=== PATIENT | female | born 1970 | race Caucasian/White ===

== ENCOUNTER 2017-05-21 14:45 | Inpatient (IN) | payer BC ==
[~2017-05-21] VITALS: Ht 170.2 cm; Wt 120.7 kg
[~2017-05-21 14:45] MED LIST: ACET500C15 PO; AMIT50TA PO; BUPR100T6 PO; DAPA5TAB PO; DIAZEPAM10 MG PO; HYDR1TAB10 PO; LISI-338 PO; LISI1TAB5 PO; MEPE100T14 PO; METF-620 PO; METO10TA81 PO; OMEG500C PO; OMEP40CA5 PO; PREG75CA PO; PROP80CA3 PO; PROP80TA PO; TIZA4TAB PO; TOPI100T42 PO; VALA500T5 PO; VENL150C PO; VERA240C2 PO
[2017-05-21 15:28] LABS: BILIRUBIN,URINE NEGATIVE (NEG); GLUCOSE,URINE NEGATIVE (NEG); NITRITE,URINE NEGATIVE (NEG); PH,URINE 7.5; PROTEIN,URINE NEGATIVE (NEG-TRACE); UROBILINOGEN,URINE 0.2 mg/dL (0.2 mg/dL)
[2017-05-21 15:30] LABS: NEG OBC UR NEG; POS OBC UR POS
[2017-05-21] MEDS ORDERED: diphenhydrAMINE 50 MG/ML VIAL IVP ONE (15:30)
[2017-05-21] MEDS ORDERED: IV NORMAL SALINE 1000ML BAG 1,000 ML IV ONE (15:30)
[2017-05-21] MEDS ORDERED: METOCLOPRAMIDE HCL 10 MG/2 ML VIAL. IV ONE (15:30)
[2017-05-21] MEDS ORDERED: KETOROLAC 15 MG/ML VIAL. IV ONE (15:30)
[2017-05-21 15:36] LABS: BACTERIA,URINE FEW /HPF (0-FEW); RBC,URINE 0 /HPF (0-2); SQUAMOUS EPITHELIAL CELL,UR FEW /LPF; WBC,URINE RARE /HPF (0-4)
--- NOTE | 2017-05-21 15:48 | EKG ---
[facility] [address] [place] [address] Test Date: 2017-05-21 Test Time: 14:56:58 Pat Name: VIRIDIANA BADILLO Department: Room: Gender: F Log Sorter: : 1970 Requested By: DENIA BAR Order Number: [id number] Reading MD: Carlos Dias Measurements Intervals [place] Rate: 103 P: 65 OR: 152 QRS: 16 QRSD: 82 T: 44 QT: 322 QTc: 424 Interpretive Statements SINUS TACHYCARDIA Electronically Signed On 05-22-2017 9:03:14 CDT by Carlos Dias
[2017-05-21 15:56] LABS: BASO # 0.1 x10^3/uL (0.0-0.2); BASO % 1 % (0-3); EOS % 1 % (0-3); HEMATOCRIT 39.5 % (36.0-47.0); HEMOGLOBIN 13.3 g/dL (12.0-15.5); LYMPH # 1.6 x10^3/uL (1.0-4.8); LYMPH % 13 % (24-48); MEAN CORPUSCULAR HEMOGLOBIN 29 pg (25-35); MEAN CORPUSCULAR HGB CONC 34 g/dL (31-37); MEAN CORPUSCULAR VOLUME 86 fL (79-100); MONO % 5 % (0-9); NEUT % 82 % (31-73); PLATELET COUNT 323 x10^3/uL (140-400); RED BLOOD COUNT 4.63 x10^6/uL (3.50-5.40); RED CELL DISTRIBUTION WIDTH 14.3 % (11.5-14.5); WHITE BLOOD COUNT 12.7 x10^3/uL (4.0-11.0)
[2017-05-21 16:10] LABS: CALCIUM 8.7 mg/dL (8.5-10.1); CREATININE 0.8 mg/dL (0.6-1.0); GFR 77.6
[2017-05-21 16:16] LABS: ALBUMIN 3.5 g/dL (3.4-5.0); ALBUMIN/GLOBULIN RATIO 0.9 (1.0-1.7); TOTAL BILIRUBIN 0.1 mg/dL (0.2-1.0); TOTAL PROTEIN 7.4 g/dL (6.4-8.2)
--- NOTE | 2017-05-21 16:17 | RAD ---
CT of the head without contrast, 05/21/2017: History: Headache, slurred speech, hypertension Comparison is made to a study from 03/26/2014. The ventricles are within normal limits in size. There is no shift of the midline structures. There is no evidence of acute intracranial hemorrhage or mass effect. There is an unchanged lucency in the left parietal lobe compatible with encephalomalacia due to a prior insult. There is an unchanged dural calcification over the high left parietal region. No new abnormality is detected. IMPRESSION: No acute intracranial abnormality is detected. PQRS Compliance Statement: One or more of the following individualized dose reduction techniques were utilized for this examination: 1. Automated exposure control 2. Adjustment of the mA and/or kV according to patient size 3. Use of iterative reconstruction technique
--- NOTE | 2017-05-21 17:11 | PHYS DOC ---
Past Medical History Past Medical History: CHF, CVA, Diabetes-Type II, Hypertension, Pneumonia, Stroke, Other Additional Past Medical Histor: chronic migraines, migraine induced TIA's, stroke x2 Past Surgical History: Cholecystectomy, , Other Additional Past Surgical Histo: back surgery, oral surgery, pressure gauge palced in scalp with removal Alcohol Use: None Drug Use: None Adult General Chief Complaint Chief Complaint: HEADACHE HPI HPI Patient is a 46 year old female who presents here today complaining of headache for 5 days as well as an elevated blood pressure at home. Patient reports that she has a history of hypertension, diabetes, stroke, pericarditis. Patient denies any liver longer kidney problems. Patient has had a cholecystectomy in the past. Patient does not drink smoke or do any drugs. Patient is not allergic to any medications. Patient reports that her blood pressure has been elevated and she's been having headache now for 5 days and has been unable to get any sleep secondary to severe pain. Patient reports that she's been taking Valium and Vicodin at home without any significant improvement. Patient reports that her son reported that she has some slurred speech yesterday however she did not think that her speech was slurred at that time. Family denies any facial droop at this time. Patient has any weakness to her upper or lower 70s. Patient reports that she's got some tingling in her right hand. Patient has any fevers shakes chills nausea vomiting diarrhea chest pain. Patient does report some occasional shortness of breath. Patient reports that she's had a history significant for what appears to be pseudotumor cerebri her description. She reports that they told her that she had increased pressures in her brain that has caused headaches in the past. She reports that she's had spinal taps in the past and they removed spinal fluid was some resolution in her headache in the past. Patient reports Dr. Muniz is her neurologist was assisted her with this in the past. Patient's physical exam and the ER was significant for a well-developed well- nourished female who appeared in moderate distress secondary to headache. Patient had a normal exam otherwise. Patient was alert awake oriented 3. Motor is 5 out of 5 upper and lower extremities were normal and equal bilaterally. Patient's abdomen was soft nontender no rebound or guarding. Patient's heart was regular rate and rhythm. Constitutional: Denies fever or chills [] Eyes: Denies change in visual acuity, redness, or eye pain [] HENT: Denies nasal congestion or sore throat [] All other review systems are negative except as documented in the history of present illness portion. Constitutional: Well developed, well nourished, no acute distress, non-toxic appearance. [] HENT: Normocephalic, atraumatic, bilateral external ears normal, oropharynx moist, no oral exudates, nose normal. [] Eyes: no discharge. [] Neck: Normal range of motion, no tenderness, supple, no stridor. [] Cardiovascular:Heart rate regular rhythm, Lungs & Thorax: Bilateral breath sounds clear to auscultation [] Abdomen: Bowel sounds normal, soft, no tenderness, no masses, no pulsatile masses. [] Skin: Warm, dry, no erythema, no rash. [] Back: No tenderness, no CVA tenderness. [] Extremities: No tenderness, no cyanosis, no clubbing, ROM intact, no edema. [] Neurologic: Alert and oriented X 3, normal motor function, normal sensory function, no focal deficits noted. [] Psychologic: Affect normal, judgement normal, mood normal. [] Patient's ER course was significant for receiving Reglan, Toradol, Benadryl and IV fluids to assist with her headache. Patient reports that her headache went down from a 9 at 10 down to a 7 out of 10. Patient reports she still having severe headache and does not think she'll be able home and get any sleep. Patient is CT scan of her head which did not reveal any acute pathology. Patient 's labs were all within normal limits. I discussed the case with Dr. Wagner who agrees the patient would benefit from inpatient hospitalization for management of her headache and her elevated blood pressure. Patient reports that her blood pressure usually is 100/60. After medication ER patient's blood pressures down to 136/81 which is significantly higher than her baseline. Patient will be admitted to the hospital for further management and consultation with Dr. Konx to assist in management of her headache. Patient does have a history of what appears to be pseudotumor cerebra in the past and may need a spinal tap to alleviate her headache. Current Medications Current Medications Current Medications Medications (Trade) Dose Ordered Sig/Arturo Start Time Stop Time Status Last Admin Dose Admin Diphenhydramine HCl (Benadryl) 50 mg 1X ONCE 05/21/17 15:30 05/21/17 15:31 DC 05/21/17 16:06 50 MG Ketorolac Tromethamine (Toradol) 15 mg 1X ONCE 05/21/17 15:30 05/21/17 15:31 DC 05/21/17 16:05 15 MG Metoclopramide HCl (Reglan) 10 mg 1X ONCE 05/21/17 15:30 05/21/17 15:31 DC 05/21/17 16:05 10 MG Sodium Chloride 1,000 ml @ 1,000 mls/hr 1X ONCE 05/21/17 15:30 05/21/17 16:29 DC 05/21/17 16:05 1,000 MLS/HR Allergies Allergies Allergies Coded Allergies Type Severity Reaction Last Updated Verified No Known Drug Allergies 11/13/15 No Current Patient Data Vital Signs Vital Signs Date Time Temp Pulse Resp B/P (MAP) Pulse Ox O2 Delivery O2 Flow Rate FiO2 05/21/17 14:50 97.6 91 22 158/88 (111) 97 Room Air 97.6 Lab Values Laboratory Tests Test 05/21/17 14:57 05/21/17 15:30 Urine Collection Type Void Urine Color Yellow Urine Clarity Cloudy Urine pH 7.5 Urine Specific [place] 1.015 Urine Protein Negative mg/dL (NEG-TRACE) Urine Glucose (UA) Negative mg/dL (NEG) Urine Ketones (Stick) Negative mg/dL (NEG) Urine Blood Negative (NEG) Urine Nitrite Negative (NEG) Urine Bilirubin Negative (NEG) Urine Urobilinogen Dipstick 0.2 mg/dL (0.2 mg/dL) Urine Leukocyte Esterase Negative (NEG) Urine RBC 0 /HPF (0-2) Urine WBC Rare /HPF (0-4) Urine Squamous Epithelial Cells Few /LPF Urine Amorphous Sediment Present /HPF Urine Bacteria Few /HPF (0-FEW) Urine Test Negative (NEG) White Blood Count 12.7 x10^3/uL (4.0-11.0) H Red Blood Count 4.63 x10^6/uL (3.50-5.40) Hemoglobin 13.3 g/dL (12.0-15.5) Hematocrit 39.5 % (36.0-47.0) Mean Corpuscular Volume 86 fL (79-100) Mean Corpuscular Hemoglobin 29 pg (25-35) Mean Corpuscular Hemoglobin Concent 34 g/dL (31-37) Red Cell Distribution Width 14.3 % (11.5-14.5) Platelet Count 323 x10^3/uL (140-400) Neutrophils (%) (Auto) 82 % (31-73) H Lymphocytes (%) (Auto) 13 % (24-48) L Monocytes (%) (Auto) 5 % (0-9) Eosinophils (%) (Auto) 1 % (0-3) Basophils (%) (Auto) 1 % (0-3) Neutrophils # (Auto) 10.3 x10^3uL (1.8-7.7) H Lymphocytes # (Auto) 1.6 x10^3/uL (1.0-4.8) Monocytes # (Auto) 0.6 x10^3/uL (0.0-1.1) Eosinophils # (Auto) 0.1 x10^3/uL (0.0-0.7) Basophils # (Auto) 0.1 x10^3/uL (0.0-0.2) Sodium Level 139 mmol/L (136-145) Potassium Level 4.0 mmol/L (3.5-5.1) Chloride Level 104 mmol/L (98-107) Carbon Dioxide Level 22 mmol/L (21-32) Anion Gap 13 (6-14) Blood Urea Nitrogen 10 mg/dL (7-20) Creatinine 0.8 mg/dL (0.6-1.0) Estimated GFR (Cockcroft-Gault) 77.6 BUN/Creatinine Ratio 13 (6-20) Glucose Level 96 mg/dL (70-99) Calcium Level 8.7 mg/dL (8.5-10.1) Total Bilirubin 0.1 mg/dL (0.2-1.0) L Aspartate Amino Transferase (AST) 17 U/L (15-37) Alanine Aminotransferase (ALT) 23 U/L (14-59) Alkaline Phosphatase 92 U/L (46-116) Total Protein 7.4 g/dL (6.4-8.2) Albumin 3.5 g/dL (3.4-5.0) Albumin/Globulin Ratio 0.9 (1.0-1.7) L Laboratory Tests 05/21/17 15:30 Laboratory Tests 05/21/17 15:30 EKG EKG [] Radiology/Procedures Radiology/Procedures [] Course & Med Decision Making Course & Med Decision Making Pertinent Labs and Imaging studies reviewed. (See chart for details) [] Dragon Disclaimer Dragon Disclaimer This electronic medical record was generated, in whole or in part, using a voice recognition dictation system. Departure Departure Impression: Primary Impression: Intractable pain Additional Impressions: Migraine Hypertension Disposition: ADMITTED INPATIENT Admitting Physician: Batool Faustin Condition: STABLE Referrals: BATOOL FAUSTIN MD (PCP) Problem Qualifiers DENIA BAR MD May 21, 2017 17:11
[2017-05-21] MEDS ORDERED: ACETAMINOPHEN 325 MG TABLET. PO PRN (17:15)
[2017-05-21] MEDS ORDERED: ONDANSETRON PF 4 MG/2 ML VIAL. IV PRN (17:15)
[2017-05-21] MEDS ORDERED: HYDROmorphone 2 MG/ML VIAL IV ONE (17:45)
[2017-05-21 18:46] VITALS: BP 145/79
[2017-05-21 18:48] VITALS: BP 145/79
[2017-05-21] MEDS: IV NORMAL SALINE 1000ML BAG 1,000 ML IV SCH (18:55)
[2017-05-21 19:47] VITALS: BP 137/86
[2017-05-21] MEDS: MORPHINE SULFATE 4 MG/ML DISP.SYRIN. IV PRN ×2 (20:09→22:28)
[2017-05-21] MEDS ORDERED: diazePAM 5 MG TABLET PO PRN (21:30)
[2017-05-21] MEDS: tiZANidine 4 MG TABLET. PO SCH (22:24)
[2017-05-21] MEDS: TOPIRAMATE 100 MG TABLET. PO SCH (22:24)
[2017-05-21] MEDS: VENLAFAXINE 75 MG TABLET. PO SCH (22:24)
[2017-05-21] MEDS: AMITRIPTYLINE HCL 50 MG TABLET PO SCH (22:24)
[2017-05-21] MEDS: buPROPion 100 MG TABLET PO SCH (22:25)
[2017-05-21 23:20] VITALS: BP 135/75
[2017-05-22] VITALS (9 sets, daily range): BP systolic 111–154; BP diastolic 65–94
--- NOTE | 2017-05-22 00:53 | ACF ---
Admission Forms Criteria HEADACHES Clinical Indications for Admission to Inpatient Care (Place 'X' for any and all applicable criteria): Admission is indicated for ANY ONE of the following(1)(2)(3)(4): [X]I. Inpatient admission required rather than observational care (Also use Headaches: Observation Care as appropriate) because of ANY ONE of the following: [X]a) Severe pain requiring acute inpatient management [ ]b) Altered mental status that is severe or persistent [ ]c) Vomiting or dehydration that is severe or persistent [ ]d) New-onset focal neurologic deficit that is severe or persistent [ ]e) Hypertension requiring inpatient treatment [ ]f) Severe (new) neurologic findings requiring inpatient care as indicated by ANY ONE of following(9)(10): [ ]1) Papilledema [ ]2) Cerebral edema [ ]3) Mass effect on CT scan [ ]4) Cerebral bleeding, ischemia, or vasospasm(16) [ ]5) Hydrocephalus(17) [ ]6) Uncontrolled seizures [ ]g) IV infusion of anticoagulation, platelet inhibitors vasoactive, or antiarrhythmic medication. [ ]h) Cerebral bleeding, hydrocephalus, or vasospasm monitoring (16) [ ]i) Increased intracranial pressure or cerebral edema monitoring (17) [ ]j) Other condition, treatment or monitoring requiring inpatient admission [ ]II. Unruptured but threatening aneurysm or vascular malformation [ ]III. Venous sinus thrombosis [ ]IV. Increased intracranial pressure [ ]V. Cerebral spinal fluid leak with decreased intracranial pressure [ ]. Medication-overuse headache that has failed all outpatient management options [ ]VII. Vasculitis (eg, giant cell (temporal) arteritis, central nervous system vasculitis) requiring IV corticosteroids, IV antithrombotic therapy, or inpatient monitoring (eg, visual symptoms or findings, other ischemic manifestations)[A](10)(11) Extended stay beyond goal length of stay may be needed for (27): [ ]a) Intractable migraine [ ]b) Subarachnoid or intracranial hemorrhage [ ]c) Malignant hypertension [ ]d) Detoxification from drug withdrawal in medication-overuse headache (29) The original [facility] content created by [facility] has been revised. The portions of the content which have been revised are identified through the use of italic text or in bold, and Geoffrey [employer]el has neither reviewed nor approved the modified material.All other unmodified content is copyright [facility]. Please see references footnoted in the original [facility] edition 2016 Admission Criteria Met?: Yes ABBEY CHI May 22, 2017 00:53
[2017-05-22] MEDS: MORPHINE SULFATE 4 MG/ML DISP.SYRIN. IV PRN ×9 (01:56→23:02)
[2017-05-22] MEDS: IV NORMAL SALINE 1000ML BAG 1,000 ML IV SCH ×2 (03:09→09:02)
[2017-05-22] MEDS: tiZANidine 4 MG TABLET. PO SCH ×3 (06:04→20:44)
[2017-05-22] MEDS: METOCLOPRAMIDE 5 MG TABLET. PO SCH ×4 (08:09→20:44)
[2017-05-22] MEDS: PANTOPRAZOLE 40 MG TABLET.DR. PO SCH ×2 (08:09→15:42)
--- NOTE | 2017-05-22 08:10 | PDOC ---
GENERAL General: see dictated H&P. Problems: VITAL SIGNS Vital Signs: Vital Signs Date Time Temp Pulse Resp B/P (MAP) Pulse Ox O2 Delivery O2 Flow Rate FiO2 05/22/17 07:00 97.6 81 120/84 (96) 98 Room Air 97.6 05/22/17 06:39 18 I & O I & O Intake and Output 05/22/17 07:00 Intake Total 1550 ml Balance 1550 ml Intake Oral 550 ml IV Total 1000 ml # Voids 4 ALLERGIES Allergies: Allergies Coded Allergies Type Severity Reaction Last Updated Verified No Known Drug Allergies 11/13/15 No MEDS Medications: Current Medications Medications (Trade) Dose Ordered Sig/Arturo Start Time Stop Time Status Last Admin Dose Admin Acetaminophen (Tylenol) 650 mg PRN Q4HRS PRN 05/21/17 17:15 05/22/17 17:14 Amitriptyline HCl (Amitriptyline HCl) 50 mg HS 05/21/17 22:00 05/21/17 22:24 50 MG Bupropion HCl (Wellbutrin) 150 mg BID 05/21/17 22:00 05/21/17 22:25 150 MG Diazepam (Valium) 10 mg PRN TID PRN 05/21/17 21:30 Diphenhydramine HCl (Benadryl) 50 mg 1X ONCE 05/21/17 15:30 05/21/17 15:31 DC 05/21/17 16:06 50 MG Hydromorphone HCl (Dilaudid) 0.5 mg 1X ONCE 05/21/17 17:45 05/21/17 17:46 DC 05/21/17 17:38 0.5 MG Ketorolac Tromethamine (Toradol) 15 mg 1X ONCE 05/21/17 15:30 05/21/17 15:31 DC 05/21/17 16:05 15 MG Metformin HCl (Glucophage) 1,000 mg BIDWMEALS 05/22/17 08:00 Metoclopramide HCl (Reglan) 5 mg [id number] 05/22/17 08:00 Morphine Sulfate 4 mg PRN Q2HR PRN 05/21/17 17:15 05/22/17 17:14 05/22/17 06:09 4 MG Non-Formulary Medication 5 mg DAILY 05/22/17 09:00 UNV Ondansetron HCl (Zofran) 4 mg PRN Q8HRS PRN 05/21/17 17:15 05/22/17 17:14 Pantoprazole Sodium (Protonix) 40 mg BIDAC 05/22/17 07:30 Pregabalin (Lyrica) 75 mg DAILY 05/22/17 09:00 Sodium Chloride 1,000 ml @ 125 mls/hr Q8H 05/21/17 17:02 05/22/17 17:01 05/22/17 03:09 125 MLS/HR Tizanidine HCl (Zanaflex) 4 mg Q8HRS 05/21/17 22:00 05/22/17 06:04 4 MG Topiramate (Topamax) 100 mg BID 05/21/17 22:00 05/21/17 22:24 100 MG Venlafaxine HCl (Effexor) 75 mg TID 05/21/17 22:00 05/21/17 22:24 75 MG LAB Lab: Laboratory Tests Test 05/21/17 14:57 05/21/17 15:30 Urine Collection Type Void Urine Color Yellow Urine Clarity Cloudy Urine pH 7.5 Urine Specific [place] 1.015 Urine Protein Negative mg/dL (NEG-TRACE) Urine Glucose (UA) Negative mg/dL (NEG) Urine Ketones (Stick) Negative mg/dL (NEG) Urine Blood Negative (NEG) Urine Nitrite Negative (NEG) Urine Bilirubin Negative (NEG) Urine Urobilinogen Dipstick 0.2 mg/dL (0.2 mg/dL) Urine Leukocyte Esterase Negative (NEG) Urine RBC 0 /HPF (0-2) Urine WBC Rare /HPF (0-4) Urine Squamous Epithelial Cells Few /LPF Urine Amorphous Sediment Present /HPF Urine Bacteria Few /HPF (0-FEW) Urine Test Negative (NEG) White Blood Count 12.7 x10^3/uL (4.0-11.0) Red Blood Count 4.63 x10^6/uL (3.50-5.40) Hemoglobin 13.3 g/dL (12.0-15.5) Hematocrit 39.5 % (36.0-47.0) Mean Corpuscular Volume 86 fL (79-100) Mean Corpuscular Hemoglobin 29 pg (25-35) Mean Corpuscular Hemoglobin Concent 34 g/dL (31-37) Red Cell Distribution Width 14.3 % (11.5-14.5) Platelet Count 323 x10^3/uL (140-400) Neutrophils (%) (Auto) 82 % (31-73) Lymphocytes (%) (Auto) 13 % (24-48) Monocytes (%) (Auto) 5 % (0-9) Eosinophils (%) (Auto) 1 % (0-3) Basophils (%) (Auto) 1 % (0-3) Neutrophils # (Auto) 10.3 x10^3uL (1.8-7.7) Lymphocytes # (Auto) 1.6 x10^3/uL (1.0-4.8) Monocytes # (Auto) 0.6 x10^3/uL (0.0-1.1) Eosinophils # (Auto) 0.1 x10^3/uL (0.0-0.7) Basophils # (Auto) 0.1 x10^3/uL (0.0-0.2) Sodium Level 139 mmol/L (136-145) Potassium Level 4.0 mmol/L (3.5-5.1) Chloride Level 104 mmol/L (98-107) Carbon Dioxide Level 22 mmol/L (21-32) Anion Gap 13 (6-14) Blood Urea Nitrogen 10 mg/dL (7-20) Creatinine 0.8 mg/dL (0.6-1.0) Estimated GFR (Cockcroft-Gault) 77.6 BUN/Creatinine Ratio 13 (6-20) Glucose Level 96 mg/dL (70-99) Calcium Level 8.7 mg/dL (8.5-10.1) Total Bilirubin 0.1 mg/dL (0.2-1.0) Aspartate Amino Transf (AST/SGOT) 17 U/L (15-37) Alanine Aminotransferase (ALT/SGPT) 23 U/L (14-59) Alkaline Phosphatase 92 U/L (46-116) Total Protein 7.4 g/dL (6.4-8.2) Albumin 3.5 g/dL (3.4-5.0) Albumin/Globulin Ratio 0.9 (1.0-1.7) BATOOL DONOHUE MD May 22, 2017 08:09
[2017-05-22] MEDS ORDERED: KETOROLAC TROMETHAMINE 60 MG/2 ML INJ. IM PRN (08:15)
[2017-05-22] MEDS: PREGABALIN 75 MG CAPSULE PO SCH (08:16)
[2017-05-22] MEDS: TOPIRAMATE 100 MG TABLET. PO SCH ×2 (08:16→20:44)
[2017-05-22] MEDS: VENLAFAXINE 75 MG TABLET. PO SCH ×3 (08:16→20:44)
--- NOTE | 2017-05-22 08:55 | HP ---
ADMIT DATE: 05/21/2017 CHIEF COMPLAINT AND HISTORY OF PRESENT ILLNESS: This 46-year-old white female who is well known to me from followup in the office. The patient was admitted through the Emergency Room with intractable migraine headache, unresponsive to outpatient therapy. In addition, she had increasing right hand numbness along with the issues, known to be status post CVA from presumed migrainous spasm 10 years or so ago. She was admitted for pain control and neurological consultation. PAST MEDICAL HISTORY: Remarkable for migraine headaches and increased intracranial pressure, hypertension, pericarditis, gastroparesis, depression, diabetes and she has had the prior CVA with some resultant expressive aphasia. MEDICATIONS: Brought with the patient, listed on the computer and have been addressed. ALLERGIES: She has no known drug allergies. SOCIAL HISTORY: She is nonsmoker, nondrinker, , works . Does not abuse drugs. FAMILY HISTORY: Noncontributory. REVIEW OF SYSTEMS: As mentioned above. PHYSICAL EXAMINATION: GENERAL: She is a well-developed, well-nourished white female, appears miserable. VITAL SIGNS: Stable. She is afebrile. HEENT: Unremarkable. NECK: Supple without thyromegaly. CHEST: Clear to auscultation and percussion. HEART: Regular rate and rhythm without S3, S4 or murmur. ABDOMEN: Soft, nontender without hepatosplenomegaly or masses. EXTREMITIES: Without cyanosis, clubbing or edema. NEUROLOGIC: Remarkable for mild expressive aphasia which is chronic. I see no acute changes and no new focal problems neurologically. IMPRESSION: Intractable headache, unresponsive to outpatient treatment. PLAN: The patient has been admitted. She will be treated for pain. Neurology has been consulted and the patient will be monitored, managed and treated appropriately. BATOOL DONOHUE MD DR: EMILY/gil JOB#: [id number] / [id number]
[2017-05-22] MEDS ORDERED: NON FORMULARY ITEM (Dapagliflozin Propanediol (Farxiga) 5 MG) PO SCH (09:00)
[2017-05-22] MEDS: buPROPion 100 MG TABLET PO SCH ×2 (10:27→20:43)
[2017-05-22] MEDS: KETOROLAC 15 MG/ML VIAL. IV PRN ×3 (11:40→23:55)
--- NOTE | 2017-05-22 14:31 | PDOC2 ---
NEUROLOGY CONSULT Date of Admission Date of Admission DATE: 05/22/17 TIME: 14:17 Reason for Consult Reason for Consult: Intractable headache Referring Physician Referring Physician: Dr. Faustin Source Source: Chart review, Patient History of Present Illness History of Present Illness The patient is a 46-year-old right-handed female well known to me from hospital stays as well as office follow-up. In fact I just saw her 3 weeks ago and she was doing fairly well. She has long-standing migraines and has had strokes from these. There was also a possible component of benign intracranial hypertension, but she had an intracranial pressure monitor placed and did not demonstrate enough high pressure over the 3 days of monitoring to justify a shunt. She has been seeing pain clinic and is supposed to have an ablation procedure next week. I have been giving her OxyContin 30 mg every 12 hours but she is ambiguous as to whether she has been taking this. For the past week she has had increased headache and may be a little bit of numbness in the right hand. Her headache is 7/10 now after a Toradol injection after having been 10/10 on admission. There was a suggestion of possible brain neoplasm on prior MRIs but nothing has shown on subsequent ones Past Medical History Cardiovascular: CHF, HTN, Hyperlipidemia, Other (pericarditis, deep vein thrombosis) Pulmonary: Bronchitis, Pneumonia CENTRAL NERVOUS SYSTEM: CVA, Migraine GI: GERD, Peptic Ulcer disease Hepatobiliary: Cholelithiasis Psych: Anxiety, Depression Musculoskeletal: low back pain ENT: Other (tinnitis) Endocrine: Diabetes Past Surgical History Past Surgical History: , Other (uterine ablation, wisdom teeth) Current Medications Current Medications Current Medications Diphenhydramine HCl (Benadryl) 50 mg 1X ONCE IVP Last administered on 16:06; Start 05/21/17 at 15:30; Stop 05/21/17 at 15:31; Status DC Ketorolac Tromethamine (Toradol) 15 mg 1X ONCE IV Last administered on 16:05; Start 05/21/17 at 15:30; Stop 05/21/17 at 15:31; Status DC Sodium Chloride 1,000 ml @ 1,000 mls/hr 1X ONCE IV Last administered on 16:05; Start 05/21/17 at 15:30; Stop 05/21/17 at 16:29; Status DC Metoclopramide HCl (Reglan) 10 mg 1X ONCE IV Last administered on 05/21/17 16 :05; Start 05/21/17 at 15:30; Stop 05/21/17 at 15:31; Status DC Ondansetron HCl (Zofran) 4 mg PRN Q8HRS PRN IV NAUSEA/VOMITING; Start 05/21/17 at 17:15; Stop 05/22/17 at 17:14 Morphine Sulfate 4 mg PRN Q2HR PRN IV PAIN Last administered on 05/22/17 13:25 ; Start 05/21/17 at 17:15; Stop 05/22/17 at 17:14 Sodium Chloride 1,000 ml @ 125 mls/hr Q8H IV Last administered on 05/22/17 09 :02; Start 05/21/17 at 17:02; Stop 05/22/17 at 17:01 Acetaminophen (Tylenol) 650 mg PRN Q4HRS PRN PO FEVER; Start 05/21/17 at 17:15 ; Stop 05/22/17 at 17:14 Hydromorphone HCl (Dilaudid) 0.5 mg 1X ONCE IV Last administered on 05/21/17 17:38; Start 05/21/17 at 17:45; Stop 05/21/17 at 17:46; Status DC Amitriptyline HCl (Amitriptyline HCl) 50 mg HS PO Last administered on 22:24; Start 05/21/17 at 22:00 Bupropion HCl (Wellbutrin) 150 mg BID PO Last administered on 05/22/17 10:27; Start 05/21/17 at 22:00 Metformin HCl (Glucophage) 1,000 mg BIDWMEALS PO Last administered on 08:16; Start 05/22/17 at 08:00 Metoclopramide HCl (Reglan) 5 mg TIDWMEALHC PO Last administered on 05/22/17 11:40; Start 05/22/17 at 08:00 Pregabalin (Lyrica) 75 mg DAILY PO Last administered on 05/22/17 08:16; Start 05/22/17 at 09:00 Tizanidine HCl (Zanaflex) 4 mg Q8HRS PO Last administered on 05/22/17 13:41; Start 05/21/17 at 22:00 Topiramate (Topamax) 100 mg BID PO Last administered on 05/22/17 08:16; Start 05/21/17 at 22:00 Non-Formulary Medication 5 mg DAILY PO ; Start 05/22/17 at 09:00; Status UNV Diazepam (Valium) 10 mg PRN TID PRN PO ANXIETY; Start 05/21/17 at 21:30 Pantoprazole Sodium (Protonix) 40 mg BIDAC PO Last administered on 05/22/17 08 :09; Start 05/22/17 at 07:30 Venlafaxine HCl (Effexor) 75 mg TID PO Last administered on 05/22/17 13:41; Start 05/21/17 at 22:00 Ketorolac Tromethamine (Toradol Im) 60 mg PRN Q6HRS PRN IM HEADACHE; Start at 08:15; Stop 05/22/17 at 11:22; Status DC Ketorolac Tromethamine (Toradol) 30 mg PRN Q6HRS PRN IV PAIN Last administered on 05/22/17 11:40; Start 05/22/17 at 11:30; Stop 05/27/17 at 11:29 Active Scripts Active Tizanidine Hcl 4 Mg Tablet 4 Mg PO Q8HRS Reported Omeprazole 40 Mg Capsule.dr 1 Cap PO TIDAC Farxiga (Dapagliflozin Propanediol) 5 Mg Tablet 5 Mg PO DAILY Reglan (Metoclopramide Hcl) 10 Mg Tablet 5 Mg PO TIDWMEALHC Lyrica (Pregabalin) 75 Mg Capsule 1 Cap PO DAILY Diazepam 10 Mg Tablet 10 Mg PO TID PRN Effexor Xr (Venlafaxine Hcl) 150 Mg Cap.er.24h 225 Mg PO DAILY07 Amitriptyline Hcl 50 Mg Tablet 50 Mg PO HS Wellbutrin (Bupropion Hcl) 100 Mg Tablet 150 Mg PO BID Metformin Hcl 1,000 Mg Tablet 1,000 Mg PO BID Topamax (Topiramate) 100 Mg Tablet 100 Mg PO BID Allergies Allergies: Coded Allergies: No Known Drug Allergies (Unverified , 11/13/15) ROS Review of System Patient denies fevers, chills, weight loss, dyspnea, angina, abdominal pain, change in bowels, or dysuria. 14 point review of systems is negative. Physical Exam Physical Examination PHYSICAL EXAMINATION: Vital signs: see above. General appearance is normal and in no acute distress. HEENT: Normocephalic and nontraumatic. Eyes, nose, ears, and throat are unremarkable. Neck is supple. No lymphadenopathy. No bruits are heard over the carotid artery. No crepitus. NEUROLOGICAL EXAMINATION: Mental Status Examination: Alert. Oriented to time, place, and person. Answers questions and follows commends. Pupils are equal round and reactive to light and accommodation. Funduscopic exam: No papilledema. Extraocular movements are intact. Visual field exam shows no defect on the direct confrontation. No motor or sensory deficits on the facial exam. Uvula in the midline and the soft palate elevated symmetrically. No deviation of the tongue to any direction. Gross hearing is normal. Shoulder shrug normal. Muscle tone is normal. Muscle strength is 5. Deep tendon reflexes are 2+ all around. Plantar reflex is with flexion response bilaterally. [id number] test performance is accurate. Alternative movements are accurate. Gait not tested. Sensory exam shows no deficits. No cerebellar signs are elicited. Vitals VITALS Vital Signs Date Time Temp Pulse Resp B/P (MAP) Pulse Ox O2 Delivery O2 Flow Rate FiO2 05/22/17 13:25 98 Room Air 05/22/17 10:46 97.6 77 129/78 (95) 97.6 05/22/17 06:39 18 Labs Labs Laboratory Tests Test 05/21/17 14:57 05/21/17 15:30 05/22/17 07:26 05/22/17 10:47 Urine Collection Type Void Urine Color Yellow Urine Clarity Cloudy Urine pH 7.5 Urine Specific [place] 1.015 Urine Protein Negative mg/dL (NEG-TRACE) Urine Glucose (UA) Negative mg/dL (NEG) Urine Ketones (Stick) Negative mg/dL (NEG) Urine Blood Negative (NEG) Urine Nitrite Negative (NEG) Urine Bilirubin Negative (NEG) Urine Urobilinogen Dipstick 0.2 mg/dL (0.2 mg/dL) Urine Leukocyte Esterase Negative (NEG) Urine RBC 0 /HPF (0-2) Urine WBC Rare /HPF (0-4) Urine Squamous Epithelial Cells Few /LPF Urine Amorphous Sediment Present /HPF Urine Bacteria Few /HPF (0-FEW) Urine Test Negative (NEG) White Blood Count 12.7 x10^3/uL (4.0-11.0) Red Blood Count 4.63 x10^6/uL (3.50-5.40) Hemoglobin 13.3 g/dL (12.0-15.5) Hematocrit 39.5 % (36.0-47.0) Mean Corpuscular Volume 86 fL (79-100) Mean Corpuscular Hemoglobin 29 pg (25-35) Mean Corpuscular Hemoglobin Concent 34 g/dL (31-37) Red Cell Distribution Width 14.3 % (11.5-14.5) Platelet Count 323 x10^3/uL (140-400) Neutrophils (%) (Auto) 82 % (31-73) Lymphocytes (%) (Auto) 13 % (24-48) Monocytes (%) (Auto) 5 % (0-9) Eosinophils (%) (Auto) 1 % (0-3) Basophils (%) (Auto) 1 % (0-3) Neutrophils # (Auto) 10.3 x10^3uL (1.8-7.7) Lymphocytes # (Auto) 1.6 x10^3/uL (1.0-4.8) Monocytes # (Auto) 0.6 x10^3/uL (0.0-1.1) Eosinophils # (Auto) 0.1 x10^3/uL (0.0-0.7) Basophils # (Auto) 0.1 x10^3/uL (0.0-0.2) Sodium Level 139 mmol/L (136-145) Potassium Level 4.0 mmol/L (3.5-5.1) Chloride Level 104 mmol/L (98-107) Carbon Dioxide Level 22 mmol/L (21-32) Anion Gap 13 (6-14) Blood Urea Nitrogen 10 mg/dL (7-20) Creatinine 0.8 mg/dL (0.6-1.0) Estimated GFR (Cockcroft-Gault) 77.6 BUN/Creatinine Ratio 13 (6-20) Glucose Level 96 mg/dL (70-99) Calcium Level 8.7 mg/dL (8.5-10.1) Total Bilirubin 0.1 mg/dL (0.2-1.0) Aspartate Amino Transf (AST/SGOT) 17 U/L (15-37) Alanine Aminotransferase (ALT/SGPT) 23 U/L (14-59) Alkaline Phosphatase 92 U/L (46-116) Total Protein 7.4 g/dL (6.4-8.2) Albumin 3.5 g/dL (3.4-5.0) Albumin/Globulin Ratio 0.9 (1.0-1.7) Glucose (Fingerstick) 88 mg/dL (70-99) 105 mg/dL (70-99) Laboratory Tests Test 05/21/17 14:57 05/21/17 15:30 05/22/17 07:26 05/22/17 10:47 Urine Collection Type Void Urine Color Yellow Urine Clarity Cloudy Urine pH 7.5 Urine Specific [place] 1.015 Urine Protein Negative mg/dL (NEG-TRACE) Urine Glucose (UA) Negative mg/dL (NEG) Urine Ketones (Stick) Negative mg/dL (NEG) Urine Blood Negative (NEG) Urine Nitrite Negative (NEG) Urine Bilirubin Negative (NEG) Urine Urobilinogen Dipstick 0.2 mg/dL (0.2 mg/dL) Urine Leukocyte Esterase Negative (NEG) Urine RBC 0 /HPF (0-2) Urine WBC Rare /HPF (0-4) Urine Squamous Epithelial Cells Few /LPF Urine Amorphous Sediment Present /HPF Urine Bacteria Few /HPF (0-FEW) Urine Test Negative (NEG) White Blood Count 12.7 x10^3/uL (4.0-11.0) Red Blood Count 4.63 x10^6/uL (3.50-5.40) Hemoglobin 13.3 g/dL (12.0-15.5) Hematocrit 39.5 % (36.0-47.0) Mean Corpuscular Volume 86 fL (79-100) Mean Corpuscular Hemoglobin 29 pg (25-35) Mean Corpuscular Hemoglobin Concent 34 g/dL (31-37) Red Cell Distribution Width 14.3 % (11.5-14.5) Platelet Count 323 x10^3/uL (140-400) Neutrophils (%) (Auto) 82 % (31-73) Lymphocytes (%) (Auto) 13 % (24-48) Monocytes (%) (Auto) 5 % (0-9) Eosinophils (%) (Auto) 1 % (0-3) Basophils (%) (Auto) 1 % (0-3) Neutrophils # (Auto) 10.3 x10^3uL (1.8-7.7) Lymphocytes # (Auto) 1.6 x10^3/uL (1.0-4.8) Monocytes # (Auto) 0.6 x10^3/uL (0.0-1.1) Eosinophils # (Auto) 0.1 x10^3/uL (0.0-0.7) Basophils # (Auto) 0.1 x10^3/uL (0.0-0.2) Sodium Level 139 mmol/L (136-145) Potassium Level 4.0 mmol/L (3.5-5.1) Chloride Level 104 mmol/L (98-107) Carbon Dioxide Level 22 mmol/L (21-32) Anion Gap 13 (6-14) Blood Urea Nitrogen 10 mg/dL (7-20) Creatinine 0.8 mg/dL (0.6-1.0) Estimated GFR (Cockcroft-Gault) 77.6 BUN/Creatinine Ratio 13 (6-20) Glucose Level 96 mg/dL (70-99) Calcium Level 8.7 mg/dL (8.5-10.1) Total Bilirubin 0.1 mg/dL (0.2-1.0) Aspartate Amino Transf (AST/SGOT) 17 U/L (15-37) Alanine Aminotransferase (ALT/SGPT) 23 U/L (14-59) Alkaline Phosphatase 92 U/L (46-116) Total Protein 7.4 g/dL (6.4-8.2) Albumin 3.5 g/dL (3.4-5.0) Albumin/Globulin Ratio 0.9 (1.0-1.7) Glucose (Fingerstick) 88 mg/dL (70-99) 105 mg/dL (70-99) Images Images Head CT: Comparison is made to a study from 03/26/2014. The ventricles are within normal limits in size. There is no shift of the midline structures. There is no evidence of acute intracranial hemorrhage or mass effect. There is an unchanged lucency in the left parietal lobe compatible with encephalomalacia due to a prior insult. There is an unchanged dural calcification over the high left parietal region. No new abnormality is detected. IMPRESSION: No acute intracranial abnormality is detected. Assessment/Plan Assessment/Plan Impression: Intractable migraine headaches. Recommendations: I will resume OxyContin to help even out her headache peaks. Continue current medications including when necessary Toradol Follow-up with pain clinic Thank you for letting me help with the patient's care. BHARGAVI PEACOCK MD May 22, 2017 14:31
[2017-05-22] MEDS: oxyCODONE ER 15 MG TAB.ER.12H PO SCH ×2 (14:46→20:44)
[2017-05-22] MEDS: AMITRIPTYLINE HCL 50 MG TABLET PO SCH (20:44)
[2017-05-23 03:00] VITALS: BP 110/56
[2017-05-23] MEDS: MORPHINE SULFATE 4 MG/ML DISP.SYRIN. IV PRN ×8 (04:01→22:33)
[2017-05-23] MEDS: tiZANidine 4 MG TABLET. PO SCH ×3 (06:37→20:24)
[2017-05-23] MEDS: KETOROLAC 15 MG/ML VIAL. IV PRN ×3 (06:40→19:50)
[2017-05-23 07:00] VITALS: BP 112/60
[2017-05-23] MEDS: PANTOPRAZOLE 40 MG TABLET.DR. PO SCH ×2 (07:17→15:53)
[2017-05-23] MEDS: METOCLOPRAMIDE 5 MG TABLET. PO SCH ×4 (07:17→20:29)
[2017-05-23] MEDS: VENLAFAXINE 75 MG TABLET. PO SCH ×3 (08:20→20:23)
[2017-05-23] MEDS: TOPIRAMATE 100 MG TABLET. PO SCH ×2 (08:21→20:29)
[2017-05-23] MEDS: PREGABALIN 75 MG CAPSULE PO SCH (08:21)
[2017-05-23] MEDS: buPROPion 100 MG TABLET PO SCH ×2 (08:21→20:22)
[2017-05-23] MEDS: oxyCODONE ER 15 MG TAB.ER.12H PO SCH ×2 (08:21→20:29)
--- NOTE | 2017-05-23 09:56 | PDOC ---
PROGRESS NOTES Assessment Problems Medical Problems: (1) Intractable pain Status: Acute (2) Migraine Status: Acute Intractable migraine headaches, 04/05 now. Plan Continue OxyContin to help even out her headache peaks. Continue current medications including when necessary Toradol Follow-up with pain clinic Can be discharged today although she wants to have a night of sleep and go home in the morning. Subjective Headache is now 04/05 Objective Vital Signs Date Time Temp Pulse Resp B/P (MAP) Pulse Ox O2 Delivery O2 Flow Rate FiO2 05/23/17 08:21 96 Room Air 05/23/17 07:00 98.0 82 18 112/60 (77) 98.0 Intake and Output 05/23/17 07:00 Intake Total 2250 ml Output Total 950 ml Balance 1300 ml Intake Oral 2250 ml Output Urine Total 950 ml # Voids 2 PHYSICAL EXAM Alert. Oriented to time, place and person. PERRL. EOMI. CN: no focal findings. Muscle tone: normal. Muscle strength: 5/5 DTR: 2+ Plantar reflex: flexor Gait: not examined in bed. Sensory exam: no abnormal findings. No cerebellar signs elicited. Review of Relevant I have reviewed the following items génesis (where applicable) has been applied. Labs Laboratory Tests Test 05/21/17 14:57 05/21/17 15:30 05/22/17 07:26 05/22/17 10:47 Urine Collection Type Void Urine Color Yellow Urine Clarity Cloudy Urine pH 7.5 Urine Specific [place] 1.015 Urine Protein Negative mg/dL (NEG-TRACE) Urine Glucose (UA) Negative mg/dL (NEG) Urine Ketones (Stick) Negative mg/dL (NEG) Urine Blood Negative (NEG) Urine Nitrite Negative (NEG) Urine Bilirubin Negative (NEG) Urine Urobilinogen Dipstick 0.2 mg/dL (0.2 mg/dL) Urine Leukocyte Esterase Negative (NEG) Urine RBC 0 /HPF (0-2) Urine WBC Rare /HPF (0-4) Urine Squamous Epithelial Cells Few /LPF Urine Amorphous Sediment Present /HPF Urine Bacteria Few /HPF (0-FEW) Urine Test Negative (NEG) White Blood Count 12.7 x10^3/uL (4.0-11.0) Red Blood Count 4.63 x10^6/uL (3.50-5.40) Hemoglobin 13.3 g/dL (12.0-15.5) Hematocrit 39.5 % (36.0-47.0) Mean Corpuscular Volume 86 fL (79-100) Mean Corpuscular Hemoglobin 29 pg (25-35) Mean Corpuscular Hemoglobin Concent 34 g/dL (31-37) Red Cell Distribution Width 14.3 % (11.5-14.5) Platelet Count 323 x10^3/uL (140-400) Neutrophils (%) (Auto) 82 % (31-73) Lymphocytes (%) (Auto) 13 % (24-48) Monocytes (%) (Auto) 5 % (0-9) Eosinophils (%) (Auto) 1 % (0-3) Basophils (%) (Auto) 1 % (0-3) Neutrophils # (Auto) 10.3 x10^3uL (1.8-7.7) Lymphocytes # (Auto) 1.6 x10^3/uL (1.0-4.8) Monocytes # (Auto) 0.6 x10^3/uL (0.0-1.1) Eosinophils # (Auto) 0.1 x10^3/uL (0.0-0.7) Basophils # (Auto) 0.1 x10^3/uL (0.0-0.2) Sodium Level 139 mmol/L (136-145) Potassium Level 4.0 mmol/L (3.5-5.1) Chloride Level 104 mmol/L (98-107) Carbon Dioxide Level 22 mmol/L (21-32) Anion Gap 13 (6-14) Blood Urea Nitrogen 10 mg/dL (7-20) Creatinine 0.8 mg/dL (0.6-1.0) Estimated GFR (Cockcroft-Gault) 77.6 BUN/Creatinine Ratio 13 (6-20) Glucose Level 96 mg/dL (70-99) Calcium Level 8.7 mg/dL (8.5-10.1) Total Bilirubin 0.1 mg/dL (0.2-1.0) Aspartate Amino Transf (AST/SGOT) 17 U/L (15-37) Alanine Aminotransferase (ALT/SGPT) 23 U/L (14-59) Alkaline Phosphatase 92 U/L (46-116) Total Protein 7.4 g/dL (6.4-8.2) Albumin 3.5 g/dL (3.4-5.0) Albumin/Globulin Ratio 0.9 (1.0-1.7) Glucose (Fingerstick) 88 mg/dL (70-99) 105 mg/dL (70-99) Test 05/22/17 15:41 05/22/17 17:16 05/22/17 20:27 05/23/17 07:11 Glucose (Fingerstick) 138 mg/dL (70-99) 116 mg/dL (70-99) 94 mg/dL (70-99) 101 mg/dL (70-99) Laboratory Tests Test 05/22/17 10:47 05/22/17 15:41 05/22/17 17:16 05/22/17 20:27 Glucose (Fingerstick) 105 mg/dL (70-99) 138 mg/dL (70-99) 116 mg/dL (70-99) 94 mg/dL (70-99) Test 05/23/17 07:11 Glucose (Fingerstick) 101 mg/dL (70-99) Medications Current Medications Diphenhydramine HCl (Benadryl) 50 mg 1X ONCE IVP Last administered on 16:06; Start 05/21/17 at 15:30; Stop 05/21/17 at 15:31; Status DC Ketorolac Tromethamine (Toradol) 15 mg 1X ONCE IV Last administered on 16:05; Start 05/21/17 at 15:30; Stop 05/21/17 at 15:31; Status DC Sodium Chloride 1,000 ml @ 1,000 mls/hr 1X ONCE IV Last administered on 16:05; Start 05/21/17 at 15:30; Stop 05/21/17 at 16:29; Status DC Metoclopramide HCl (Reglan) 10 mg 1X ONCE IV Last administered on 05/21/17 16 :05; Start 05/21/17 at 15:30; Stop 05/21/17 at 15:31; Status DC Ondansetron HCl (Zofran) 4 mg PRN Q8HRS PRN IV NAUSEA/VOMITING; Start 05/21/17 at 17:15; Stop 05/22/17 at 17:14; Status DC Morphine Sulfate 4 mg PRN Q2HR PRN IV PAIN Last administered on 05/22/17 15:44 ; Start 05/21/17 at 17:15; Stop 05/22/17 at 17:14; Status DC Sodium Chloride 1,000 ml @ 125 mls/hr Q8H IV Last administered on 05/22/17 09 :02; Start 05/21/17 at 17:02; Stop 05/22/17 at 17:01; Status DC Acetaminophen (Tylenol) 650 mg PRN Q4HRS PRN PO FEVER; Start 05/21/17 at 17:15 ; Stop 05/22/17 at 17:14; Status DC Hydromorphone HCl (Dilaudid) 0.5 mg 1X ONCE IV Last administered on 05/21/17 17:38; Start 05/21/17 at 17:45; Stop 05/21/17 at 17:46; Status DC Amitriptyline HCl (Amitriptyline HCl) 50 mg HS PO Last administered on 20:44; Start 05/21/17 at 22:00 Bupropion HCl (Wellbutrin) 150 mg BID PO Last administered on 05/23/17 08:21; Start 05/21/17 at 22:00 Metformin HCl (Glucophage) 1,000 mg BIDWMEALS PO Last administered on 08:20; Start 05/22/17 at 08:00 Metoclopramide HCl (Reglan) 5 mg TIDWMEALHC PO Last administered on 05/23/17 07:17; Start 05/22/17 at 08:00 Pregabalin (Lyrica) 75 mg DAILY PO Last administered on 05/23/17 08:21; Start 05/22/17 at 09:00 Tizanidine HCl (Zanaflex) 4 mg Q8HRS PO Last administered on 05/23/17 06:37; Start 05/21/17 at 22:00 Topiramate (Topamax) 100 mg BID PO Last administered on 05/23/17 08:21; Start 05/21/17 at 22:00 Non-Formulary Medication 5 mg DAILY PO ; Start 05/22/17 at 09:00; Status UNV Diazepam (Valium) 10 mg PRN TID PRN PO ANXIETY Last administered on 05/22/17 16:01; Start 05/21/17 at 21:30 Pantoprazole Sodium (Protonix) 40 mg BIDAC PO Last administered on 05/23/17 07 :17; Start 05/22/17 at 07:30 Venlafaxine HCl (Effexor) 75 mg TID PO Last administered on 05/23/17 08:20; Start 05/21/17 at 22:00 Ketorolac Tromethamine (Toradol Im) 60 mg PRN Q6HRS PRN IM HEADACHE; Start at 08:15; Stop 05/22/17 at 11:22; Status DC Ketorolac Tromethamine (Toradol) 30 mg PRN Q6HRS PRN IV PAIN Last administered on 05/23/17 06:40; Start 05/22/17 at 11:30; Stop 05/27/17 at 11:29 Oxycodone HCl (OxyCONTIN) 30 mg Q12HR PO Last administered on 05/23/17 08:21; Start 05/22/17 at 14:30 Morphine Sulfate 4 mg PRN Q2HR PRN IV PAIN Last administered on 05/23/17 07:17 ; Start 05/22/17 at 18:00 Active Scripts Active Tizanidine Hcl 4 Mg Tablet 4 Mg PO Q8HRS Reported Omeprazole 40 Mg Capsule.dr 1 Cap PO TIDAC Farxiga (Dapagliflozin Propanediol) 5 Mg Tablet 5 Mg PO DAILY Reglan (Metoclopramide Hcl) 10 Mg Tablet 5 Mg PO TIDWMEALHC Lyrica (Pregabalin) 75 Mg Capsule 1 Cap PO DAILY Diazepam 10 Mg Tablet 10 Mg PO TID PRN Effexor Xr (Venlafaxine Hcl) 150 Mg Cap.er.24h 225 Mg PO DAILY07 Amitriptyline Hcl 50 Mg Tablet 50 Mg PO HS Wellbutrin (Bupropion Hcl) 100 Mg Tablet 150 Mg PO BID Metformin Hcl 1,000 Mg Tablet 1,000 Mg PO BID Topamax (Topiramate) 100 Mg Tablet 100 Mg PO BID Vitals/I & O Vital Sign - Last 24 Hours 05/22/17 05/22/17 05/22/17 05/22/17 10:29 10:46 13:25 14:46 Temp 97.6 97.6 Pulse 77 B/P (MAP) 129/78 (95) Pulse Ox 98 98 98 98 O2 Delivery Room Air Room Air Room Air Room Air 05/22/17 05/22/17 05/22/17 05/22/17 15:00 15:44 15:45 16:08 Temp 97.6 97.6 Pulse 68 B/P (MAP) 111/69 (83) 138/85 (102) 147/85 (105) Pulse Ox 98 98 O2 Delivery Room Air Room Air 05/22/17 05/22/17 05/22/17 05/22/17 16:17 17:41 18:10 19:00 Temp 98.5 98.5 Pulse 78 Resp 18 B/P (MAP) 154/94 (114) 139/72 (94) Pulse Ox 98 98 98 O2 Delivery Room Air Room Air Room Air 05/22/17 05/22/17 05/22/17 05/22/17 19:57 20:43 20:44 23:00 Temp 98.2 98.2 Pulse 75 Resp 20 18 B/P (MAP) 113/71 (85) Pulse Ox 96 98 97 O2 Delivery Room Air Room Air Room Air Room Air 05/22/17 05/23/17 05/23/17 05/23/17 23:02 00:44 03:00 04:01 Temp 98.0 98.0 Pulse 51 Resp 20 18 18 20 B/P (MAP) 110/56 (74) Pulse Ox 96 96 97 96 O2 Delivery Room Air Room Air Room Air Nasal Cannula 05/23/17 05/23/17 05/23/17 05/23/17 04:31 07:00 07:17 08:00 Temp 98.0 98.0 Pulse 82 Resp 20 18 B/P (MAP) 112/60 (77) Pulse Ox 96 94 96 O2 Delivery Room Air Room Air Room Air Room Air 05/23/17 08:21 Pulse Ox 96 O2 Delivery Room Air Intake and Output 05/22/17 05/22/17 05/23/17 15:00 23:00 07:00 Intake Total 300 ml 600 ml 1350 ml Output Total 450 ml 500 ml Balance -150 ml 100 ml 1350 ml BHARGAVI PEACOCK MD May 23, 2017 09:56
[2017-05-23 10:45] VITALS: BP 104/59
--- NOTE | 2017-05-23 12:56 | PDOC ---
SUBJECTIVE Subjective still with headache, emotional , having hot flashes, concerned about BP, assured readings are ok OBJECTIVE Vital Signs Vital Signs Date Time Temp Pulse Resp B/P (MAP) Pulse Ox O2 Delivery O2 Flow Rate FiO2 05/23/17 12:07 96 Room Air 05/23/17 11:02 96 Room Air 05/23/17 10:45 98.6 77 18 104/59 (74) 95 Room Air 98.6 05/23/17 09:56 96 Room Air 05/23/17 08:21 96 Room Air 05/23/17 08:00 Room Air 05/23/17 07:17 96 Room Air 05/23/17 07:00 98.0 82 18 112/60 (77) 94 Room Air 98.0 05/23/17 04:31 20 05/23/17 04:01 20 96 Nasal Cannula 05/23/17 03:00 98.0 51 18 110/56 (74) 97 Room Air 98.0 05/23/17 00:44 18 96 Room Air 05/22/17 23:02 20 96 Room Air 05/22/17 23:00 98.2 75 18 113/71 (85) 97 Room Air 98.2 05/22/17 20:44 98 Room Air 05/22/17 20:43 20 96 Room Air 05/22/17 19:57 Room Air 05/22/17 19:00 98.5 78 18 139/72 (94) 98 Room Air 98.5 05/22/17 18:10 98 Room Air 05/22/17 17:41 154/94 (114) 05/22/17 16:17 98 Room Air 05/22/17 16:08 147/85 (105) 05/22/17 15:45 138/85 (102) 05/22/17 15:44 98 Room Air 05/22/17 15:00 97.6 68 111/69 (83) 98 Room Air 97.6 05/22/17 14:46 98 Room Air 05/22/17 13:25 98 Room Air I & O Intake and Output 05/23/17 07:00 Intake Total 2250 ml Output Total 950 ml Balance 1300 ml Intake Oral 2250 ml Output Urine Total 950 ml # Voids 2 PHYSICAL EXAM Physical Exam normal neuro exam ASSESSMENT/PLAN Assessment/Plan intractable RASHEED agree with lyrica, amitriptyline, and topamax, expect discharge in AM Problems: COMMENT Lab Laboratory Tests Test 05/22/17 15:41 05/22/17 17:16 05/22/17 20:27 05/23/17 07:11 Glucose (Fingerstick) 138 mg/dL (70-99) 116 mg/dL (70-99) 94 mg/dL (70-99) 101 mg/dL (70-99) Test 05/23/17 11:38 Glucose (Fingerstick) 96 mg/dL (70-99) IGLESIA MARIN MD May 23, 2017 12:56
[2017-05-23 14:45] VITALS: BP 113/70
[2017-05-23 19:00] VITALS: BP 115/63
[2017-05-23] MEDS: AMITRIPTYLINE HCL 50 MG TABLET PO SCH (20:29)
[2017-05-23 23:00] VITALS: BP 99/55
[2017-05-24 03:00] VITALS: BP 97/52
[2017-05-24] MEDS: tiZANidine 4 MG TABLET. PO SCH ×3 (05:41→21:49)
[2017-05-24] MEDS: MORPHINE SULFATE 4 MG/ML DISP.SYRIN. IV PRN ×7 (05:42→22:40)
[2017-05-24 07:00] VITALS: BP 90/55
[2017-05-24] MEDS: buPROPion 100 MG TABLET PO SCH (08:22)
[2017-05-24] MEDS: PANTOPRAZOLE 40 MG TABLET.DR. PO SCH ×2 (08:22→17:43)
[2017-05-24] MEDS: TOPIRAMATE 100 MG TABLET. PO SCH ×2 (08:23→20:13)
[2017-05-24] MEDS: oxyCODONE ER 15 MG TAB.ER.12H PO SCH ×2 (08:23→20:13)
[2017-05-24] MEDS: METOCLOPRAMIDE 5 MG TABLET. PO SCH ×4 (08:23→20:13)
[2017-05-24] MEDS: VENLAFAXINE 75 MG TABLET. PO SCH ×3 (08:23→20:13)
[2017-05-24] MEDS: PREGABALIN 75 MG CAPSULE PO SCH (08:23)
[2017-05-24] MEDS: KETOROLAC 15 MG/ML VIAL. IV PRN ×3 (09:24→21:49)
--- NOTE | 2017-05-24 10:20 | PDOC ---
SUBJECTIVE Subjective still a lot of RASHEED, explained rebound RASHEED which is contributing to problem, concern about BP which I reviewed and seemed ok OBJECTIVE Vital Signs Vital Signs Date Time Temp Pulse Resp B/P (MAP) Pulse Ox O2 Delivery O2 Flow Rate FiO2 05/24/17 07:00 98.2 77 18 90/55 (67) 96 Room Air 98.2 05/24/17 05:42 94 Room Air 05/24/17 03:00 98.9 83 18 97/52 (67) 94 Room Air 98.9 05/23/17 23:03 Room Air 05/23/17 23:00 98.6 84 18 99/55 (70) 92 Room Air 98.6 05/23/17 22:33 Room Air 05/23/17 20:30 Room Air 05/23/17 20:29 Room Air 05/23/17 20:00 Room Air 05/23/17 19:08 96 05/23/17 19:00 98.4 75 18 115/63 (80) 97 Room Air 98.4 05/23/17 18:10 96 Room Air 05/23/17 15:54 96 Room Air 05/23/17 14:45 97.6 76 18 113/70 (84) 96 Room Air 97.6 05/23/17 13:15 96 Room Air 05/23/17 12:07 96 Room Air 05/23/17 10:45 98.6 77 18 104/59 (74) 95 Room Air 98.6 I & O Intake and Output 05/24/17 07:00 Intake Total 2300 ml Balance 2300 ml Intake Oral 2300 ml # Voids 3 PHYSICAL EXAM Physical Exam no change ASSESSMENT/PLAN Assessment/Plan continue with intractable RASHEED, BP ok discussed rebound RASHEED, pt and do not feel comfortable going home has some questions to Neurology before discharge Problems: COMMENT Lab Laboratory Tests Test 05/23/17 11:38 05/23/17 16:46 05/23/17 20:43 05/23/17 21:09 Glucose (Fingerstick) 96 mg/dL (70-99) 88 mg/dL (70-99) 60 mg/dL (70-99) 67 mg/dL (70-99) Test 05/23/17 22:01 05/24/17 06:59 Glucose (Fingerstick) 124 mg/dL (70-99) 97 mg/dL (70-99) MOUSSA,HALLA S MD May 24, 2017 10:20
[2017-05-24 11:18] VITALS: BP 102/57
[2017-05-24 15:01] VITALS: BP 95/41
[2017-05-24 19:00] VITALS: BP 99/46
[2017-05-24] MEDS: AMITRIPTYLINE HCL 50 MG TABLET PO SCH (20:13)
[2017-05-24] MEDS: buPROPion 75 MG TABLET. PO SCH (20:14)
[2017-05-24] MEDS ORDERED: ZOLPIDEM 5 MG TABLET. PO PRN (20:30)
--- NOTE | 2017-05-24 20:34 | PDOC ---
PROGRESS NOTES Assessment Problems Medical Problems: (1) Intractable pain Status: Acute (2) Migraine Status: Acute Long history of intractable headache and pain. She is narcotic dependent and appears to want to seek more narcotic as well. She feels the headache is responding to the current treatment of Toradol and morphine but is still there. She feels she is not able to sleep and desires something for sleep. She plans an ablation procedure with [facility] pain clinic next Friday. Plan She may be dismissed when she feels her pain is adequately controlled. She will need to contact Dr. Marc for further narcotic prescriptions. I will provide Ambien 5 mg at night as needed for sleep. Subjective I didn't sleep very much. The headache is still there although not as bad. Objective Vital Signs Date Time Temp Pulse Resp B/P (MAP) Pulse Ox O2 Delivery O2 Flow Rate FiO2 05/24/17 20:14 96 Room Air 05/24/17 19:00 98.5 84 18 99/46 (63) 98.5 Intake and Output 05/24/17 07:00 Intake Total 2300 ml Balance 2300 ml Intake Oral 2300 ml # Voids 3 PHYSICAL EXAM She was alert, awake and cooperative. Speech was fluent and clear. She had a good fund of recent and remote knowledge. Attention and concentration was intact. She was well-oriented. Eyes were conjugate and face symmetric. Movement of the arms were symmetric and well coordinated. Review of Relevant I have reviewed the following items génesis (where applicable) has been applied. Labs Laboratory Tests Test 05/23/17 07:11 05/23/17 11:38 05/23/17 16:46 05/23/17 20:43 Glucose (Fingerstick) 101 mg/dL (70-99) 96 mg/dL (70-99) 88 mg/dL (70-99) 60 mg/dL (70-99) Test 05/23/17 21:09 05/23/17 22:01 05/24/17 06:59 05/24/17 11:44 Glucose (Fingerstick) 67 mg/dL (70-99) 124 mg/dL (70-99) 97 mg/dL (70-99) 86 mg/dL (70-99) Test 05/24/17 16:10 Glucose (Fingerstick) 155 mg/dL (70-99) Laboratory Tests Test 05/23/17 20:43 05/23/17 21:09 05/23/17 22:01 05/24/17 06:59 Glucose (Fingerstick) 60 mg/dL (70-99) 67 mg/dL (70-99) 124 mg/dL (70-99) 97 mg/dL (70-99) Test 05/24/17 11:44 05/24/17 16:10 Glucose (Fingerstick) 86 mg/dL (70-99) 155 mg/dL (70-99) Medications Current Medications Diphenhydramine HCl (Benadryl) 50 mg 1X ONCE IVP Last administered on 16:06; Start 05/21/17 at 15:30; Stop 05/21/17 at 15:31; Status DC Ketorolac Tromethamine (Toradol) 15 mg 1X ONCE IV Last administered on 16:05; Start 05/21/17 at 15:30; Stop 05/21/17 at 15:31; Status DC Sodium Chloride 1,000 ml @ 1,000 mls/hr 1X ONCE IV Last administered on 16:05; Start 05/21/17 at 15:30; Stop 05/21/17 at 16:29; Status DC Metoclopramide HCl (Reglan) 10 mg 1X ONCE IV Last administered on 05/21/17 16 :05; Start 05/21/17 at 15:30; Stop 05/21/17 at 15:31; Status DC Ondansetron HCl (Zofran) 4 mg PRN Q8HRS PRN IV NAUSEA/VOMITING; Start 05/21/17 at 17:15; Stop 05/22/17 at 17:14; Status DC Morphine Sulfate 4 mg PRN Q2HR PRN IV PAIN Last administered on 05/22/17 15:44 ; Start 05/21/17 at 17:15; Stop 05/22/17 at 17:14; Status DC Sodium Chloride 1,000 ml @ 125 mls/hr Q8H IV Last administered on 05/22/17 09 :02; Start 05/21/17 at 17:02; Stop 05/22/17 at 17:01; Status DC Acetaminophen (Tylenol) 650 mg PRN Q4HRS PRN PO FEVER; Start 05/21/17 at 17:15 ; Stop 05/22/17 at 17:14; Status DC Hydromorphone HCl (Dilaudid) 0.5 mg 1X ONCE IV Last administered on 05/21/17 17:38; Start 05/21/17 at 17:45; Stop 05/21/17 at 17:46; Status DC Amitriptyline HCl (Amitriptyline HCl) 50 mg HS PO Last administered on 20:44; Start 05/21/17 at 22:00; Stop 05/23/17 at 12:54; Status DC Bupropion HCl (Wellbutrin) 150 mg BID PO Last administered on 05/24/17 08:22; Start 05/21/17 at 22:00; Stop 05/24/17 at 14:54; Status DC Metformin HCl (Glucophage) 1,000 mg BIDWMEALS PO Last administered on 17:43; Start 05/22/17 at 08:00 Metoclopramide HCl (Reglan) 5 mg TIDWMEALHC PO Last administered on 05/24/17 20:13; Start 05/22/17 at 08:00 Pregabalin (Lyrica) 75 mg DAILY PO Last administered on 05/24/17 08:23; Start 05/22/17 at 09:00 Tizanidine HCl (Zanaflex) 4 mg Q8HRS PO Last administered on 05/24/17 13:36; Start 05/21/17 at 22:00 Topiramate (Topamax) 100 mg BID PO Last administered on 05/24/17 20:13; Start 05/21/17 at 22:00 Non-Formulary Medication 5 mg DAILY PO ; Start 05/22/17 at 09:00; Status UNV Diazepam (Valium) 10 mg PRN TID PRN PO ANXIETY Last administered on 05/22/17 16:01; Start 05/21/17 at 21:30 Pantoprazole Sodium (Protonix) 40 mg BIDAC PO Last administered on 05/24/17 17 :43; Start 05/22/17 at 07:30 Venlafaxine HCl (Effexor) 75 mg TID PO Last administered on 05/24/17 20:13; Start 05/21/17 at 22:00 Ketorolac Tromethamine (Toradol Im) 60 mg PRN Q6HRS PRN IM HEADACHE; Start at 08:15; Stop 05/22/17 at 11:22; Status DC Ketorolac Tromethamine (Toradol) 30 mg PRN Q6HRS PRN IV PAIN Last administered on 05/24/17 15:27; Start 05/22/17 at 11:30; Stop 05/27/17 at 11:29 Oxycodone HCl (OxyCONTIN) 30 mg Q12HR PO Last administered on 05/24/17 20:13; Start 05/22/17 at 14:30 Morphine Sulfate 4 mg PRN Q2HR PRN IV PAIN Last administered on 05/24/17 20:14 ; Start 05/22/17 at 18:00 Amitriptyline HCl (Amitriptyline HCl) 100 mg HS PO Last administered on 20:13; Start 05/23/17 at 21:00 Bupropion HCl (Wellbutrin) 150 mg BID PO Last administered on 05/24/17 20:14; Start 05/24/17 at 21:00 Zolpidem Tartrate (Ambien) 5 mg PRN QHS PRN PO INSOMNIA; Start 05/24/17 at 20: 30; Status UNV Active Scripts Active Tizanidine Hcl 4 Mg Tablet 4 Mg PO Q8HRS Reported Omeprazole 40 Mg Capsule. 1 Cap PO TIDAC Farxiga (Dapagliflozin Propanediol) 5 Mg Tablet 5 Mg PO DAILY Reglan (Metoclopramide Hcl) 10 Mg Tablet 5 Mg PO TIDWMEALHC Lyrica (Pregabalin) 75 Mg Capsule 1 Cap PO DAILY Diazepam 10 Mg Tablet 10 Mg PO TID PRN Effexor Xr (Venlafaxine Hcl) 150 Mg Cap.er.24h 225 Mg PO DAILY07 Amitriptyline Hcl 50 Mg Tablet 50 Mg PO HS Wellbutrin (Bupropion Hcl) 100 Mg Tablet 150 Mg PO BID Metformin Hcl 1,000 Mg Tablet 1,000 Mg PO BID Topamax (Topiramate) 100 Mg Tablet 100 Mg PO BID Vitals/I & O Vital Sign - Last 24 Hours 05/23/17 05/23/17 05/23/17 05/24/17 22:33 23:00 23:03 03:00 Temp 98.6 98.9 98.6 98.9 Pulse 84 83 Resp 18 18 B/P (MAP) 99/55 (70) 97/52 (67) Pulse Ox 92 94 O2 Delivery Room Air Room Air Room Air Room Air 05/24/17 05/24/17 05/24/17 05/24/17 05:42 07:00 08:01 11:18 Temp 98.2 98.3 98.2 98.3 Pulse 77 98 Resp 18 18 B/P (MAP) 90/55 (67) 102/57 (72) Pulse Ox 94 96 91 O2 Delivery Room Air Room Air Room Air Room Air 05/24/17 05/24/17 05/24/17 05/24/17 12:23 15:01 15:33 19:00 Temp 98.6 98.5 98.6 98.5 Pulse 67 84 Resp 18 18 B/P (MAP) 95/41 (59) 99/46 (63) Pulse Ox 96 96 O2 Delivery Room Air Room Air Room Air Room Air 05/24/17 05/24/17 20:13 20:14 Pulse Ox 96 96 O2 Delivery Room Air Room Air Intake and Output 05/23/17 05/23/17 05/24/17 15:00 23:00 07:00 Intake Total 1200 ml 1100 ml Balance 1200 ml 1100 ml LATOYA CHIN MD May 24, 2017 20:34
[2017-05-24 23:00] VITALS: BP 130/71
[2017-05-25] MEDS: tiZANidine 4 MG TABLET. PO SCH (06:22)
[2017-05-25] MEDS: MORPHINE SULFATE 4 MG/ML DISP.SYRIN. IV PRN ×3 (06:22→12:33)
[2017-05-25 07:00] VITALS: BP 130/77
[2017-05-25] MEDS: VENLAFAXINE 75 MG TABLET. PO SCH (08:11)
[2017-05-25] MEDS: PANTOPRAZOLE 40 MG TABLET.DR. PO SCH (08:11)
[2017-05-25] MEDS: buPROPion 75 MG TABLET. PO SCH (08:11)
[2017-05-25] MEDS: PREGABALIN 75 MG CAPSULE PO SCH (08:11)
[2017-05-25] MEDS: TOPIRAMATE 100 MG TABLET. PO SCH (08:11)
[2017-05-25] MEDS: METOCLOPRAMIDE 5 MG TABLET. PO SCH ×2 (08:11→12:00)
[2017-05-25] MEDS: oxyCODONE ER 15 MG TAB.ER.12H PO SCH (08:12)
[2017-05-25] MEDS: KETOROLAC 15 MG/ML VIAL. IV PRN (08:13)
[2017-05-25 11:17] VITALS: BP 97/44
[2017-05-25] MEDS ORDERED: AMIT50TA PO (11:26)
[2017-05-25] MEDS ORDERED: OXYC15TA60 PO (11:26)
--- NOTE | 2017-05-25 11:30 | PDOC ---
SUBJECTIVE Subjective slept better , feels little beter today OBJECTIVE Vital Signs Vital Signs Date Time Temp Pulse Resp B/P (MAP) Pulse Ox O2 Delivery O2 Flow Rate FiO2 05/25/17 11:17 98.6 84 19 97/44 (61) 92 Room Air 98.6 05/25/17 10:00 94 Room Air 05/25/17 08:12 94 Room Air 05/25/17 08:00 Room Air 05/25/17 07:00 100.4 96 18 130/77 (94) 94 Room Air 100.4 05/24/17 23:00 98.6 88 18 130/71 (90) 94 Room Air 98.6 05/24/17 22:40 96 Room Air 05/24/17 20:14 96 Room Air 05/24/17 20:13 96 Room Air 05/24/17 20:00 Room Air 05/24/17 19:00 98.5 84 18 99/46 (63) 96 Room Air 98.5 05/24/17 15:33 Room Air 05/24/17 15:01 98.6 67 18 95/41 (59) 96 Room Air 98.6 05/24/17 12:23 Room Air I & O Intake and Output 05/25/17 07:00 Intake Total 1700 ml Balance 1700 ml Intake Oral 1700 ml # Voids 10 PHYSICAL EXAM Physical Exam no change ASSESSMENT/PLAN Assessment/Plan plan home today , she already has script for oxycontin , increased Amitryptyline dose to 100 mg can be called in. Problems: COMMENT Lab Laboratory Tests Test 05/24/17 11:44 05/24/17 16:10 05/24/17 20:39 05/25/17 07:03 Glucose (Fingerstick) 86 mg/dL (70-99) 155 mg/dL (70-99) 91 mg/dL (70-99) 93 mg/dL (70-99) IGLESIA MARIN MD May 25, 2017 11:30
--- NOTE | 2017-05-25 11:33 | PDOC3 ---
Discharge Summary* Date of Admission: May 21, 2017 Date of Discharge: May 25, 2017 Admitting Diagnosis Problems Medical Problems: (1) Intractable pain Status: Acute (2) Migraine Status: Acute Problems: Final Diagnosis 1-Intractable RASHEED 2- migraine headaches 3- Hx pericarditis, 4- hx gastroparesis, 5-depression, 6. diabetes r7. hx CVA with some resultant expressive aphasia. Problems Medical Problems: (1) Intractable pain Status: Acute (2) Migraine Status: Acute CONSULTS neurology Procedures CT head neg Brief Hospital Course Ms. Tucker is a 46 old [sex] who presented with [ ] Disposition/Orders: D/C to Home CONDITION AT DISCHARGE: Stable Diet: Cardiac, Consistent Carbohydrate Scheduled Amitriptyline Hcl (Amitriptyline Hcl), 50 MG PO HS, (Reported) Bupropion Hcl (Wellbutrin), 150 MG PO BID, (Reported) Dapagliflozin Propanediol (Farxiga), 5 MG PO DAILY, (Reported) Diazepam (Diazepam), 10 MG PO TID PRN, (Reported) Metformin Hcl (Metformin Hcl), 1,000 MG PO BID, (Reported) Metoclopramide Hcl (Reglan), 5 MG PO TIDWMEALHC, (Reported) Omeprazole (Omeprazole), 1 CAP PO TIDAC, (Reported) Pregabalin (Lyrica), 1 CAP PO DAILY, (Reported) Tizanidine Hcl (Tizanidine Hcl), 4 MG PO Q8HRS Topiramate (Topamax), 100 MG PO BID, (Reported) Venlafaxine Hcl (Effexor Xr), 225 MG PO DAILY07, (Reported) FOLLOW UP APPOINTMENT: Dr. Faustin 1-2 week [facility] next Friday Neurology 2 week Time Spent Total time spent with patient [] minutes for coordination of care, counseling, and education. IGLSEIA MARIN MD May 25, 2017 11:33
== END 2017-05-25 15:00 | disposition home or self-care (01) | DRG 103 ==
LOC: ER 14:45 → 6 SOUTH 17:01
PROVIDERS: ADMIT Family Medicine; ATTEND Family Medicine
DX: G43.919 Migraine, unspecified, intractable, without status migrainosus (principal); F11.20 Opioid dependence, uncomplicated; I11.0 Hypertensive heart disease with heart failure; I50.9 Heart failure, unspecified; Z86.73 Personal history of transient ischemic attack (TIA), and cerebral infarction without residual deficits; E78.5 Hyperlipidemia, unspecified; F32.9 Major depressive disorder, single episode, unspecified; K21.9 Gastro-esophageal reflux disease without esophagitis; Z87.11 Personal history of peptic ulcer disease; E11.43 Type 2 diabetes mellitus with diabetic autonomic (poly)neuropathy; K31.84 Gastroparesis; F41.9 Anxiety disorder, unspecified; Z90.49 Acquired absence of other specified parts of digestive tract; Z87.01 Personal history of pneumonia (recurrent); Z71.89 Other specified counseling
CPT/HCPCS: 36415; 70450; 80053; 81001; 81025; 82962; 85027; 93005; 96361; 96374; 96375; J1170; J1200; J1885; J2270; J2765; J7030; J8597; 99285-25

== ENCOUNTER 2017-11-07 22:53 | Emergency (ER) | payer BC ==
[2017-11-07] MEDS: KETOROLAC 30 MG/ML INJ. IV (23:28)
[2017-11-07] MEDS: IV NORMAL SALINE 1000ML BAG 1,000 ML IV (23:28)
[2017-11-07] MEDS: METOCLOPRAMIDE HCL 10 MG/2 ML VIAL. IV (23:30)
[2017-11-07] MEDS: diphenhydrAMINE 50 MG/ML VIAL IVP (23:32)
[2017-11-07] MEDS: DEXAMETHASONE SOD PHOS 20 MG/5 ML VIAL. IV (23:34)
== END 2017-11-08 01:44 | disposition home or self-care (01) ==
LOC: ER 11-08 01:44
DX: G43.909 Migraine, unspecified, not intractable, without status migrainosus (principal); I11.0 Hypertensive heart disease with heart failure; I50.9 Heart failure, unspecified; E11.9 Type 2 diabetes mellitus without complications; Z87.01 Personal history of pneumonia (recurrent); Z86.73 Personal history of transient ischemic attack (TIA), and cerebral infarction without residual deficits; Z90.49 Acquired absence of other specified parts of digestive tract
CPT/HCPCS: 96361; 96374; 96375; 99285-25; J1100; J1200; J1885; J2765; J7030

== ENCOUNTER 2019-01-27 12:40 | Inpatient (IN) | payer BC ==
[~2019-01-27] VITALS: Ht 167.6 cm; Wt 120.2 kg
[2019-01-27] MEDS: IV 1/2 NORMAL SALINE 1,000 ML IV SCH ×2 (05:40→18:19)
[~2019-01-27 12:40] MED LIST changes: +CELE200C PO; +ERGO500027 PO; +LEVO25TA4 PO; -METF-620 PO; +METF10007 PO; +OXYC15TA61 PO; +OXYC20TA34 PO
[2019-01-27] MEDS ORDERED: diphenhydrAMINE HCL 25 MG CAPSULE PO PRN (17:30)
[2019-01-27] MEDS: metFORMIN 500 MG TABLET PO SCH (18:18)
[2019-01-27] MEDS: diazePAM 5 MG TABLET PO PRN (18:18)
[2019-01-27] MEDS: fentaNYL PF VIAL 100 MCG/2 ML VIAL IV PRN ×3 (18:19→22:59)
[2019-01-27 19:00] VITALS: BP 113/59
--- NOTE | 2019-01-27 19:16 | NUR ---
The patient, VIRIDIANA BADILLO, 48 y/o, F directly admitted by BATOOL DONOHUE MD, for intractable migraine. Was given written information regarding hospital policies, unit procedures and contact persons. Orders received and initiated interventions. Valuables were checked and pt oriented to unit.
[2019-01-27] MEDS: buPROPion SR 150 MG TABLET.SA PO SCH (20:48)
[2019-01-27] MEDS: CELECOXIB 100 MG CAPSULE. PO SCH (20:48)
[2019-01-27] MEDS: PREGABALIN 75 MG CAPSULE PO SCH (20:49)
[2019-01-27] MEDS: TOPIRAMATE 100 MG TABLET. PO SCH (20:49)
[2019-01-27] MEDS: VENLAFAXINE 75 MG TABLET. PO SCH (20:49)
[2019-01-27] MEDS: AMITRIPTYLINE HCL 25 MG TABLET. PO SCH (20:50)
[2019-01-27] MEDS: KETOROLAC 30 MG/ML VIAL. IV PRN (21:31)
[2019-01-27 23:00] VITALS: BP 118/67
[2019-01-28] VITALS (7 sets, daily range): BP systolic 107–144; BP diastolic 59–72
[2019-01-28] MEDS: fentaNYL PF VIAL 100 MCG/2 ML VIAL IV PRN ×10 (01:03→22:28)
[2019-01-28] MEDS: IV 1/2 NORMAL SALINE 1,000 ML IV SCH ×2 (03:40→16:07)
[2019-01-28] MEDS: diphenhydrAMINE 50 MG/ML VIAL IVP PRN ×3 (05:47→18:27)
[2019-01-28] MEDS: LEVOTHYROXINE 25 MCG TABLET. PO SCH (06:11)
[2019-01-28] MEDS: metFORMIN 500 MG TABLET PO SCH ×2 (08:43→17:15)
[2019-01-28] MEDS: VENLAFAXINE 75 MG TABLET. PO SCH ×3 (08:43→20:13)
[2019-01-28] MEDS: TOPIRAMATE 100 MG TABLET. PO SCH ×2 (08:43→20:13)
[2019-01-28] MEDS: PANTOPRAZOLE 40 MG TABLET.DR. PO SCH (08:43)
[2019-01-28] MEDS: PREGABALIN 75 MG CAPSULE PO SCH ×2 (08:43→20:14)
[2019-01-28] MEDS: buPROPion SR 150 MG TABLET.SA PO SCH ×2 (08:44→20:13)
[2019-01-28] MEDS: CELECOXIB 100 MG CAPSULE. PO SCH ×2 (08:44→20:13)
--- NOTE | 2019-01-28 09:10 | HP ---
ADMIT DATE: 01/27/2019 CHIEF COMPLAINT AND HISTORY OF PRESENT ILLNESS: This 48-year-old white female who is well known to me from followup in the office. The patient was admitted with an intractable migraine headache on the day of admission after quite a period of time at home with p.o. meds trying to manage the same without relief. The patient does this once or twice a year, unable to break the headache at home and she has to be admitted for the same. PAST MEDICAL HISTORY: The patient's past medical history is remarkable for migraines. She has also had a prior CVA felt to be due to migraine as vascular spasm back in her late 20s to 30-year-old range. She has had a history of what was felt to be benign intracranial hypertension. Also a history of pericarditis, hyperlipidemia, hypertension, diabetes, asthma, gallbladder disease and hiatal hernia. She has had a prior cholecystectomy and . She has hypothyroidism and history of depression. MEDICATIONS: Brought with the patient, listed on the computer and have been addressed. ALLERGIES: She has no known drug allergies. SOCIAL HISTORY: She is a smoker up until some 13 years ago quitting at that point in time. Does not abuse alcohol or drugs. and lives at home with her . FAMILY HISTORY: Noncontributory. REVIEW OF SYSTEMS: As mentioned above. PHYSICAL EXAMINATION: GENERAL: She is well-developed, well-nourished white female who is uncomfortable. VITAL SIGNS: Stable. She is afebrile. HEAD, EYES, EARS, NOSE AND THROAT: Unremarkable. NECK: Supple, without bruit or thyromegaly. CHEST: Clear to auscultation and percussion. HEART: Regular rate and rhythm without S3, S4 or murmur. ABDOMEN: Soft, nontender, without hepatosplenomegaly or mass. EXTREMITIES: Without cyanosis, clubbing or edema. NEUROLOGIC: Remarkable for some very mild expressive aphasia, which has been the case since her CVA many years ago. IMPRESSION: 1. Intractable migraine. 2. Multiple other problems listed above. PLAN: The patient has been admitted. She is placed on the migraine headache regimen Neuro had her on last admission for pain relief. Neurology will be consulted and the patient will be monitored, managed and treated appropriately. BATOOL A. APPL, MD DR: Amber JOB#: [id number] / [id number]
[2019-01-28] MEDS: KETOROLAC 30 MG/ML VIAL. IV PRN ×2 (10:19→17:16)
--- NOTE | 2019-01-28 14:17 | PDOC2 ---
NEUROLOGY CONSULT Date of Admission Date of Admission DATE: 01/28/19 TIME: 14:02 Reason for Consult Reason for Consult: migraine Referring Physician Referring Physician: Dr. Faustin Source Source: Chart review, Patient History of Present Illness History of Present Illness The patient is a 48-year-old right-handed female well known to me with history of intractable migraine headaches. She also has a history of meningioma, migrainous stroke, and transient ischemic attacks. She has tried and failed on numerous antidepressants, beta blockers, calcium channel blockers, DHE, triptans , anticonvulsants, neuroleptics, Botox injections, pain clinic modalities and most recently is failing on Aimovig 140 mg monthly. When I last saw her in the office a month ago we agreed we would give the Aimovig another few months, but she now believes it is not helping at all and indeed this headache started a couple days after her last injection. Dr. Faustin has admitted her for narcotic treatment. Also there was a question whether she had benign intracranial hypertension, but she had 3 days of intracranial pressure monitoring which failed to reveal any significant pressure elevation. That was 6 years ago. Past Medical History Cardiovascular: CHF, Other (pericarditis, deep venous thrombosis) Pulmonary: Asthma, Bronchitis CENTRAL NERVOUS SYSTEM: CVA, Migraine, Other (meningioma) GI: GERD, Peptic Ulcer disease Psych: Anxiety, Depression Musculoskeletal: low back pain Endocrine: Diabetes, Hypothyroidism Past Surgical History Past Surgical History: Cholecystectomy, , Tonsillectomy, Other ( lumbar fusion) Family History Family History: CAD Social History Social History , school worker, no alcohol or tobacco Current Medications Current Medications Current Medications Amitriptyline HCl (Elavil) 50 mg QHS PO Last administered on 01/27/19 20:50; Start 01/27/19 at 21:00 Bupropion HCl (Wellbutrin Sr) 150 mg BID PO Last administered on 01/28/19 08:44 ; Start 01/27/19 at 21:00 Pregabalin (Lyrica) 75 mg BID PO Last administered on 01/28/19 08:43; Start 01/27/19 at 21:00 Celecoxib (CeleBREX) 200 mg BID PO Last administered on 01/28/19 08:44; Start 01/27/19 at 21:00 Diazepam (Valium) 10 mg PRN TID PRN PO ANXIETY Last administered on 01/27/19 18 :18; Start 01/27/19 at 17:45 Levothyroxine Sodium (Synthroid) 25 mcg DAILY06 PO Last administered on 06:11; Start 01/28/19 at 06:00 Metformin HCl (Glucophage) 1,000 mg BIDWMEALS PO Last administered on 01/28/19 08:43; Start 01/27/19 at 17:45 Pantoprazole Sodium (Protonix) 40 mg DAILYAC PO Last administered on 01/28/19 08:43; Start 01/28/19 at 07:30 Topiramate (Topamax) 200 mg BID PO Last administered on 01/28/19 08:43; Start 01/27/19 at 21:00 Venlafaxine HCl (Effexor) 75 mg TID PO Last administered on 01/28/19 08:43; Start 01/27/19 at 21:00 Fentanyl Citrate (Fentanyl 2ml Vial) 75 mcg PRN Q2HR PRN IV PAIN SEVERE Last administered on 01/28/19 13:09; Start 01/27/19 at 17:30 Ketorolac Tromethamine (Toradol 30mg Vial) 30 mg PRN Q6HRS PRN IV PAIN MILD TO MOD Last administered on 01/28/19 10:19; Start 01/27/19 at 17:30; Stop 02/01/19 at 17:29 Diphenhydramine HCl (Benadryl) 50 mg PRN Q6HRS PRN PO adverse reaction/ insomina Last administered on 01/27/19 20:49; Start 01/27/19 at 17:30 Diphenhydramine HCl (Benadryl) 50 mg PRN Q6HRS PRN IVP adverse reaction/ insomnia Last administered on 01/28/19 11:56; Start 01/27/19 at 17:30 Sodium Chloride 1,000 ml @ 100 mls/hr Q10H IV Last administered on 01/27/19 05 :40; Start 01/27/19 at 17:30 Active Scripts Active Reported Celebrex (Celecoxib) 200 Mg Capsule 200 Mg PO BID 30 Days Levothyroxine Sodium 25 Mcg Tablet 1 Tab PO DAILY Amitriptyline Hcl 50 Mg Tablet 1 Tab PO QHS Omeprazole 40 Mg Capsule.dr 1 Cap PO DAILY Lyrica (Pregabalin) 75 Mg Capsule 1 Cap PO BID Diazepam 10 Mg Tablet 10 Mg PO TID PRN Effexor Xr (Venlafaxine Hcl) 150 Mg Cap.er.24h 225 Mg PO DAILY07 Wellbutrin (Bupropion Hcl) 100 Mg Tablet 150 Mg PO BID Metformin Hcl 1,000 Mg Tablet 1,000 Mg PO BID Topamax (Topiramate) 100 Mg Tablet 200 Mg PO BID Allergies Allergies: Coded Allergies: No Known Drug Allergies (Unverified , 11/13/15) ROS Review of System Negative for fever, chills, weight loss, shortness of breath, chest pain, indigestion, hematochezia, melena, and dysuria. Full 14-point review of systems is negative. Physical Exam Physical Examination General: Well-developed, well-nourished white female in no acute distress, headache is 10 /10 HEENT: Normocephalic andatraumatic. Temporal arteriespulsatile and nontender. Fundoscopic exam unremarkable Neck: Supple without bruit, no meningismus Musculoskeletal: Stability:see neurologic. Gait exam:see neurologic. Tone:see neurologic. Strength:see neurologic. Neurological: Mental Status:intact, orientation, memory, attention span/concentration, language, fund of knowledge normal. Cranial Nerves:Pupils equal and reactive to light, extraocular movements areintact, visual crump are full to confrontation. Facial sensation is normal. There is no facial asymmetry. Vestibulo-ocular reflex is intact. Palate elevates and tongue protrudes in midline. All other cranial related problems are negative except as mentioned before.Reflexes:2+ and symmetric with flexor plantar responses. Motor:5/5 strength with normal tone and bulk. Coordination:Finger-nose finger and heel-to -arana testing are normal. Rapid alternating movements and fine finger movements are intact. Gait:Normal, including tandem. Sensory:Normal pinprick, vibration , light touch, proprioception. Vitals VITALS Vital Signs Date Time Temp Pulse Resp B/P (MAP) Pulse Ox O2 Delivery O2 Flow Rate FiO2 01/28/19 13:09 14 Room Air 01/28/19 03:00 97.6 76 119/71 (87) 98 97.6 Labs Labs Laboratory Tests Test 01/27/19 20:50 Glucose (Fingerstick) 93 mg/dL (70-99) Laboratory Tests Test 01/27/19 20:50 Glucose (Fingerstick) 93 mg/dL (70-99) Assessment/Plan Assessment/Plan Impression: Intractable migraine headache. Recommendations: Agree with as-needed narcotics. Discontinue Aimovig. Thank you for letting me help with the patient's care. BHARGAVI PEACOCK MD Jan 28, 2019 14:17
[2019-01-28] MEDS: AMITRIPTYLINE HCL 25 MG TABLET. PO SCH (20:13)
[2019-01-28] MEDS: diazePAM 5 MG TABLET PO PRN (20:13)
[2019-01-29] MEDS: fentaNYL PF VIAL 100 MCG/2 ML VIAL IV PRN ×11 (00:42→23:53)
[2019-01-29] MEDS: diphenhydrAMINE 50 MG/ML VIAL IVP PRN ×4 (00:43→21:45)
[2019-01-29 03:00] VITALS: BP 138/75
[2019-01-29] MEDS: LEVOTHYROXINE 25 MCG TABLET. PO SCH (05:59)
[2019-01-29 07:00] VITALS: BP 113/62
[2019-01-29] MEDS: PANTOPRAZOLE 40 MG TABLET.DR. PO SCH (08:45)
[2019-01-29] MEDS: buPROPion SR 150 MG TABLET.SA PO SCH ×2 (08:45→21:45)
[2019-01-29] MEDS: metFORMIN 500 MG TABLET PO SCH ×2 (08:45→17:24)
[2019-01-29] MEDS: TOPIRAMATE 100 MG TABLET. PO SCH ×2 (08:46→21:45)
[2019-01-29] MEDS: CELECOXIB 100 MG CAPSULE. PO SCH ×2 (08:46→21:45)
[2019-01-29] MEDS: VENLAFAXINE 75 MG TABLET. PO SCH ×3 (08:46→21:45)
[2019-01-29] MEDS: KETOROLAC 30 MG/ML VIAL. IV PRN ×3 (09:00→21:44)
[2019-01-29] MEDS: PREGABALIN 75 MG CAPSULE PO SCH ×2 (09:09→21:46)
--- NOTE | 2019-01-29 10:36 | PDOC ---
PROGRESS NOTES Assessment Intractable migraine headache. Plan Agree with as-needed narcotics. Discontinue Aimovig. Will check into gammaCore, non-invasive vagus nerve stimulator for migraine Subjective headache down to 710 Objective Vital Signs Date Time Temp Pulse Resp B/P (MAP) Pulse Ox O2 Delivery O2 Flow Rate FiO2 01/29/19 08:47 14 Room Air 01/29/19 07:00 98.3 70 113/62 (79) 94 98.3 Intake and Output 01/29/19 07:00 Intake Total 1820 ml Balance 1820 ml Intake Oral 820 ml IV Total 1000 ml # Voids 5 PHYSICAL EXAM Alert. Oriented to time, place and person. No acute distress PERRL. EOMI. CN: no focal findings. Muscle tone: normal. Muscle strength: 5/5 DTR: 2+ Plantar reflex: flexor Gait: not examined in bed. Sensory exam: no abnormal findings. No cerebellar signs elicited. Review of Relevant I have reviewed the following items génesis (where applicable) has been applied. Labs Laboratory Tests Test 01/27/19 20:50 Glucose (Fingerstick) 93 mg/dL (70-99) Medications Current Medications Amitriptyline HCl (Elavil) 50 mg QHS PO Last administered on 01/28/19 20:13; Start 01/27/19 at 21:00 Bupropion HCl (Wellbutrin Sr) 150 mg BID PO Last administered on 01/29/19 08:45 ; Start 01/27/19 at 21:00 Pregabalin (Lyrica) 75 mg BID PO Last administered on 01/29/19 09:09; Start 01/27/19 at 21:00 Celecoxib (CeleBREX) 200 mg BID PO Last administered on 01/29/19 08:46; Start 01/27/19 at 21:00 Diazepam (Valium) 10 mg PRN TID PRN PO ANXIETY Last administered on 01/28/19 20 :13; Start 01/27/19 at 17:45 Levothyroxine Sodium (Synthroid) 25 mcg DAILY06 PO Last administered on 05:59; Start 01/28/19 at 06:00 Metformin HCl (Glucophage) 1,000 mg BIDWMEALS PO Last administered on 01/29/19 08:45; Start 01/27/19 at 17:45 Pantoprazole Sodium (Protonix) 40 mg DAILYAC PO Last administered on 01/29/19 08:45; Start 01/28/19 at 07:30 Topiramate (Topamax) 200 mg BID PO Last administered on 01/29/19 08:46; Start 01/27/19 at 21:00 Venlafaxine HCl (Effexor) 75 mg TID PO Last administered on 01/29/19 08:46; Start 01/27/19 at 21:00 Fentanyl Citrate (Fentanyl 2ml Vial) 75 mcg PRN Q2HR PRN IV PAIN SEVERE Last administered on 01/29/19 08:47; Start 01/27/19 at 17:30 Ketorolac Tromethamine (Toradol 30mg Vial) 30 mg PRN Q6HRS PRN IV PAIN MILD TO MOD Last administered on 01/29/19 09:00; Start 01/27/19 at 17:30; Stop 02/01/19 at 17:29 Diphenhydramine HCl (Benadryl) 50 mg PRN Q6HRS PRN PO adverse reaction/ insomina Last administered on 01/27/19 20:49; Start 01/27/19 at 17:30 Diphenhydramine HCl (Benadryl) 50 mg PRN Q6HRS PRN IVP adverse reaction/ insomnia Last administered on 01/29/19 08:46; Start 01/27/19 at 17:30 Sodium Chloride 1,000 ml @ 100 mls/hr Q10H IV Last administered on 01/28/19 03 :40; Start 01/27/19 at 17:30 Active Scripts Active Reported Celebrex (Celecoxib) 200 Mg Capsule 200 Mg PO BID 30 Days Levothyroxine Sodium 25 Mcg Tablet 1 Tab PO DAILY Amitriptyline Hcl 50 Mg Tablet 1 Tab PO QHS Omeprazole 40 Mg Capsule.dr 1 Cap PO DAILY Lyrica (Pregabalin) 75 Mg Capsule 1 Cap PO BID Diazepam 10 Mg Tablet 10 Mg PO TID PRN Effexor Xr (Venlafaxine Hcl) 150 Mg Cap.er.24h 225 Mg PO DAILY07 Wellbutrin (Bupropion Hcl) 100 Mg Tablet 150 Mg PO BID Metformin Hcl 1,000 Mg Tablet 1,000 Mg PO BID Topamax (Topiramate) 100 Mg Tablet 200 Mg PO BID Vitals/I & O Vital Sign - Last 24 Hours 01/28/19 01/28/19 01/28/19 01/28/19 10:56 11:00 13:09 13:34 Temp 98.2 98.0 98.2 98.0 Pulse 66 66 Resp 14 18 14 18 B/P (MAP) 144/72 (96) 144/72 (96) Pulse Ox 96 96 O2 Delivery Room Air Room Air Room Air Room Air 01/28/19 01/28/19 01/28/19 01/28/19 15:00 15:26 17:17 19:00 Temp 97.6 98.3 97.6 98.3 Pulse 63 66 Resp 17 14 14 17 B/P (MAP) 107/59 (75) 139/72 (94) Pulse Ox 94 96 O2 Delivery Room Air Room Air Room Air Room Air 01/28/19 01/28/19 01/28/19 01/28/19 19:45 20:12 22:28 23:00 Temp 98.0 98.0 Pulse 67 Resp 17 B/P (MAP) 125/70 (88) Pulse Ox 95 O2 Delivery Room Air Room Air Room Air Room Air 01/29/19 01/29/19 01/29/19 01/29/19 00:42 03:00 03:43 05:59 Temp 98.0 98.0 Pulse 65 Resp 17 B/P (MAP) 138/75 (96) Pulse Ox 96 O2 Delivery Room Air Room Air Room Air Room Air 01/29/19 01/29/19 01/29/19 06:29 07:00 08:47 Temp 98.3 98.3 Pulse 70 Resp 14 16 14 B/P (MAP) 113/62 (79) Pulse Ox 94 O2 Delivery Room Air Room Air Room Air Intake and Output 01/28/19 01/28/19 01/29/19 15:00 23:00 07:00 Intake Total 580 ml 1240 ml 0 ml Balance 580 ml 1240 ml 0 ml BHARGAVI PEACOCK MD Jan 29, 2019 10:36
[2019-01-29 11:00] VITALS: BP 115/66
[2019-01-29] MEDS: IV 1/2 NORMAL SALINE 1,000 ML IV SCH ×2 (13:24→21:52)
[2019-01-29 15:00] VITALS: BP 126/76
[2019-01-29 19:00] VITALS: BP 118/57
[2019-01-29] MEDS: AMITRIPTYLINE HCL 25 MG TABLET. PO SCH (21:45)
[2019-01-29] MEDS: diazePAM 5 MG TABLET PO PRN (21:46)
--- NOTE | 2019-01-29 21:55 | PN ---
DATE: 01/29/2019 SUBJECTIVE: The patient is awake and alert. This morning, feels like she did get some better sleep last night. Headache is down, not sure too, but still far from functional with the same. OBJECTIVE: VITAL SIGNS: Stable. She is afebrile. CHEST: Clear. HEART: Regular. ABDOMEN: Benign. NEUROLOGICAL: Stable. IMPRESSION: 1. Intractable migraine. 2. Multiple other medical problems. PLAN: Continue present regimen with plan on discharge once headache is down to a livable level. Neurological consultation is appreciated. BATOOL DONOHUE MD DR: EMILY/gil JOB#: [id number] / [id number]
[2019-01-29 23:00] VITALS: BP 156/66
[2019-01-30] MEDS: fentaNYL PF VIAL 100 MCG/2 ML VIAL IV PRN ×9 (02:32→22:35)
[2019-01-30 03:00] VITALS: BP 120/73
[2019-01-30] MEDS: LEVOTHYROXINE 25 MCG TABLET. PO SCH (06:13)
[2019-01-30] MEDS: KETOROLAC 30 MG/ML VIAL. IV PRN ×3 (06:28→19:13)
[2019-01-30] MEDS: diphenhydrAMINE 50 MG/ML VIAL IVP PRN ×3 (06:28→19:13)
[2019-01-30 07:00] VITALS: BP 122/59
[2019-01-30] MEDS: PREGABALIN 75 MG CAPSULE PO SCH ×2 (08:31→20:31)
[2019-01-30] MEDS: PANTOPRAZOLE 40 MG TABLET.DR. PO SCH (08:31)
[2019-01-30] MEDS: VENLAFAXINE 75 MG TABLET. PO SCH ×3 (08:31→20:32)
[2019-01-30] MEDS: metFORMIN 500 MG TABLET PO SCH ×2 (08:31→17:16)
[2019-01-30] MEDS: TOPIRAMATE 100 MG TABLET. PO SCH ×2 (08:31→20:32)
[2019-01-30] MEDS: IV 1/2 NORMAL SALINE 1,000 ML IV SCH (08:31)
[2019-01-30] MEDS: CELECOXIB 100 MG CAPSULE. PO SCH ×2 (08:31→20:32)
[2019-01-30] MEDS: buPROPion SR 150 MG TABLET.SA PO SCH ×2 (08:31→20:32)
[2019-01-30 11:00] VITALS: BP 130/77
--- NOTE | 2019-01-30 11:47 | PDOC ---
Provider Note Provider Note vss, no new sxs- still on iv fent q 3-4 hr re RASHEED as she failed aimovig and many other options- she has no new neuro signs now- and feels her pain is better- will dc iv saline, consider home am if she is ok ANABELL FIELDS MD Jan 30, 2019 11:47
[2019-01-30] MEDS ORDERED: DOCUSATE SODIUM 100 MG CAPSULE. PO PRN (13:45)
[2019-01-30] MEDS ORDERED: HYDROmorphone 2 MG/ML VIAL IVP PRN (13:45)
[2019-01-30 15:00] VITALS: BP 138/72
[2019-01-30] MEDS: diazePAM 5 MG TABLET PO PRN ×2 (16:09→20:32)
--- NOTE | 2019-01-30 16:14 | PDOC ---
PROGRESS NOTES Assessment Intractable migraine headache. Plan Agree with as-needed narcotics. Discontinue Aimovig. My office is checking into gammaCore, non-invasive vagus nerve stimulator for migraine, discussed with patient Discharge tomorrow AM F/U c me as scheduled, but we get ahold of the patient when we get the gammaCore approved Subjective headache 05/05 Objective Vital Signs Date Time Temp Pulse Resp B/P (MAP) Pulse Ox O2 Delivery O2 Flow Rate FiO2 01/30/19 16:08 Room Air 01/30/19 15:00 98.4 80 18 138/72 (94) 94 98.4 Intake and Output 01/30/19 07:00 Intake Total 2550 ml Balance 2550 ml Intake Oral 1550 ml IV Total 1000 ml # Voids 6 PHYSICAL EXAM Alert. Oriented to time, place and person. No acute distress PERRL. EOMI. CN: no focal findings. Muscle tone: normal. Muscle strength: 5/5 DTR: 2+ Plantar reflex: flexor Gait: not examined in bed. Sensory exam: no abnormal findings. No cerebellar signs elicited. Review of Relevant I have reviewed the following items génesis (where applicable) has been applied. Medications Current Medications Amitriptyline HCl (Elavil) 50 mg QHS PO Last administered on 01/29/19 21:45; Start 01/27/19 at 21:00 Bupropion HCl (Wellbutrin Sr) 150 mg BID PO Last administered on 01/30/19 08:31 ; Start 01/27/19 at 21:00 Pregabalin (Lyrica) 75 mg BID PO Last administered on 01/30/19 08:31; Start 01/27/19 at 21:00 Celecoxib (CeleBREX) 200 mg BID PO Last administered on 01/30/19 08:31; Start 01/27/19 at 21:00 Diazepam (Valium) 10 mg PRN TID PRN PO ANXIETY Last administered on 01/30/19 16 :09; Start 01/27/19 at 17:45 Levothyroxine Sodium (Synthroid) 25 mcg DAILY06 PO Last administered on 06:13; Start 01/28/19 at 06:00 Metformin HCl (Glucophage) 1,000 mg BIDWMEALS PO Last administered on 01/30/19 08:31; Start 01/27/19 at 17:45 Pantoprazole Sodium (Protonix) 40 mg DAILYAC PO Last administered on 01/30/19 08:31; Start 01/28/19 at 07:30 Topiramate (Topamax) 200 mg BID PO Last administered on 01/30/19 08:31; Start 01/27/19 at 21:00 Venlafaxine HCl (Effexor) 75 mg TID PO Last administered on 01/30/19 13:07; Start 01/27/19 at 21:00 Fentanyl Citrate (Fentanyl 2ml Vial) 75 mcg PRN Q2HR PRN IV PAIN SEVERE Last administered on 01/30/19 16:08; Start 01/27/19 at 17:30 Ketorolac Tromethamine (Toradol 30mg Vial) 30 mg PRN Q6HRS PRN IV PAIN MILD TO MOD Last administered on 01/30/19 13:06; Start 01/27/19 at 17:30; Stop 02/01/19 at 17:29 Diphenhydramine HCl (Benadryl) 50 mg PRN Q6HRS PRN PO adverse reaction/ insomina Last administered on 01/27/19 20:49; Start 01/27/19 at 17:30 Diphenhydramine HCl (Benadryl) 50 mg PRN Q6HRS PRN IVP adverse reaction/ insomnia Last administered on 01/30/19 13:06; Start 01/27/19 at 17:30 Sodium Chloride 1,000 ml @ 100 mls/hr Q10H IV Last administered on 01/30/19 08 :31; Start 01/27/19 at 17:30; Stop 01/30/19 at 11:48; Status DC Docusate Sodium (Colace) 100 mg PRN BID PRN PO CONSTIPATION Last administered on 01/30/19 16:08; Start 01/30/19 at 13:45 Hydromorphone HCl (Dilaudid) 0.6 mg PRN Q4HRS PRN IVP MODERATE TO SEVERE PAIN Last administered on 01/30/19 14:20; Start 01/30/19 at 13:45; Stop 01/30/19 at 15: 08; Status DC Active Scripts Active Reported Celebrex (Celecoxib) 200 Mg Capsule 200 Mg PO BID 30 Days Levothyroxine Sodium 25 Mcg Tablet 1 Tab PO DAILY Amitriptyline Hcl 50 Mg Tablet 1 Tab PO QHS Omeprazole 40 Mg Capsule.dr 1 Cap PO DAILY Lyrica (Pregabalin) 75 Mg Capsule 1 Cap PO BID Diazepam 10 Mg Tablet 10 Mg PO TID PRN Effexor Xr (Venlafaxine Hcl) 150 Mg Cap.er.24h 225 Mg PO DAILY07 Wellbutrin (Bupropion Hcl) 100 Mg Tablet 150 Mg PO BID Metformin Hcl 1,000 Mg Tablet 1,000 Mg PO BID Topamax (Topiramate) 100 Mg Tablet 200 Mg PO BID Vitals/I & O Vital Sign - Last 24 Hours 01/29/19 01/29/19 01/29/19 01/29/19 17:24 17:54 19:00 19:30 Temp 98.2 98.2 Pulse 72 Resp 14 20 B/P (MAP) 118/57 (77) Pulse Ox 95 95 95 O2 Delivery Room Air Room Air Room Air 01/29/19 01/29/19 01/29/19 01/29/19 19:34 21:45 23:00 23:53 Temp 98.6 98.6 Pulse 78 Resp 20 20 20 18 B/P (MAP) 156/66 (96) Pulse Ox 93 O2 Delivery Room Air Room Air Room Air Room Air 01/30/19 01/30/19 01/30/19 01/30/19 02:32 03:00 06:14 06:44 Temp 97.9 97.9 Pulse 78 Resp 18 20 20 18 B/P (MAP) 120/73 (89) Pulse Ox 95 O2 Delivery Room Air Room Air Room Air 01/30/19 01/30/19 01/30/19 01/30/19 07:00 08:00 08:32 10:46 Temp 97.9 97.9 Pulse 76 Resp 16 B/P (MAP) 122/59 (80) Pulse Ox 94 O2 Delivery Room Air Room Air Room Air Room Air 01/30/19 01/30/19 01/30/19 01/30/19 11:00 13:07 13:37 14:20 Temp 98.6 98.6 Pulse 80 Resp 16 B/P (MAP) 130/77 (94) Pulse Ox 94 O2 Delivery Room Air Room Air Room Air Room Air 01/30/19 01/30/19 01/30/19 14:50 15:00 16:08 Temp 98.4 98.4 Pulse 80 Resp 18 B/P (MAP) 138/72 (94) Pulse Ox 94 O2 Delivery Room Air Room Air Room Air Intake and Output 01/29/19 01/29/19 01/30/19 15:00 23:00 07:00 Intake Total 750 ml 1800 ml Balance 750 ml 1800 ml BHARGAVI PEACOCK MD Jan 30, 2019 16:14
--- NOTE | 2019-01-30 17:26 | NUR ---
Assumed pt care at 1630. Agree with previous nurse assessment. Pt resting quietly with family at bedside.
[2019-01-30 19:00] VITALS: BP 156/96
[2019-01-30] MEDS: AMITRIPTYLINE HCL 25 MG TABLET. PO SCH (20:31)
[2019-01-30 23:00] VITALS: BP 135/84
[2019-01-31] MEDS: fentaNYL PF VIAL 100 MCG/2 ML VIAL IV PRN ×4 (00:33→11:00)
[2019-01-31] MEDS: KETOROLAC 30 MG/ML VIAL. IV PRN ×2 (01:38→08:48)
[2019-01-31] MEDS: diphenhydrAMINE 50 MG/ML VIAL IVP PRN ×2 (01:38→08:48)
[2019-01-31 03:00] VITALS: BP 128/79
[2019-01-31] MEDS: PANTOPRAZOLE 40 MG TABLET.DR. PO SCH (06:30)
[2019-01-31] MEDS: LEVOTHYROXINE 25 MCG TABLET. PO SCH (06:30)
[2019-01-31 07:00] VITALS: BP 123/72
[2019-01-31] MEDS: TOPIRAMATE 100 MG TABLET. PO SCH (08:57)
[2019-01-31] MEDS: VENLAFAXINE 75 MG TABLET. PO SCH (08:57)
[2019-01-31] MEDS: CELECOXIB 100 MG CAPSULE. PO SCH (08:57)
[2019-01-31] MEDS: buPROPion SR 150 MG TABLET.SA PO SCH (08:57)
[2019-01-31] MEDS: PREGABALIN 75 MG CAPSULE PO SCH (08:57)
[2019-01-31] MEDS: metFORMIN 500 MG TABLET PO SCH (08:57)
--- NOTE | 2019-01-31 10:23 | PDOC ---
Provider Note Provider Note [id number] ANABELL FIELDS MD Jan 31, 2019 10:23
--- NOTE | 2019-01-31 11:49 | DS ---
DATE OF DISCHARGE: 01/31/2019 HOSPITAL SUMMARY: A 48-year-old patient with chronic headaches, felt to be migraine, but has failed all measures of medications including most recently Aimovig under the direction of Dr. Marc. Labs and x-rays were normal and she received IV fentanyl throughout the hospital stay and feels like she is doing well without that she can go home and be followed as an outpatient. She did receive some IV fluids throughout the hospital stay with no laboratory studies or imaging studies beyond the one she has had done in the past were done. FINAL DIAGNOSIS: Chronic intractable headache. OPERATIONS, PROCEDURES, COMPLICATIONS: None. CONSULTATIONS: Dr. Marc. DISPOSITION: She will take all home medicines remain as the same with no new medications under the direction of Dr. Marc and Dr. Faustin. She will see Dr. Faustin in 1-2 weeks as usual after discharge. Continue to see Dr. Marc for further neurologic suggestions including possibility of transcutaneous vagal nerve stimulator that he is considering trying. PROGNOSIS: Guarded. ANABELL FIELDS MD DR: CHANCE/gil JOB#: [id number] / [id number]
--- NOTE | 2019-01-31 12:39 | NUR ---
Discharge Note: [facility] [place] Discharge instructions and discharge home medications reviewed with Patient and a copy given. All questions have been answered and understanding verbalized. The following instructions and handouts were given: pt instructions for migraine and visit report Discontinued lines and drains: periperhal IV, tip intact. Patient discharged to home with self care via private vehicle. Pt was alert and oriented with all belongings when she left unit.
== END 2019-01-31 11:50 | disposition home or self-care (01) | DRG 103 ==
LOC: 5 NORTH 14:46
PROVIDERS: ADMIT Family Medicine; ATTEND Family Medicine
DX: G43.919 Migraine, unspecified, intractable, without status migrainosus (principal); E78.5 Hyperlipidemia, unspecified; I11.0 Hypertensive heart disease with heart failure; E11.9 Type 2 diabetes mellitus without complications; J45.909 Unspecified asthma, uncomplicated; E03.9 Hypothyroidism, unspecified; F32.9 Major depressive disorder, single episode, unspecified; I50.9 Heart failure, unspecified; K21.9 Gastro-esophageal reflux disease without esophagitis; F41.9 Anxiety disorder, unspecified; Z90.49 Acquired absence of other specified parts of digestive tract; Z86.73 Personal history of transient ischemic attack (TIA), and cerebral infarction without residual deficits; Z87.891 Personal history of nicotine dependence; Z86.011 Personal history of benign neoplasm of the brain; Z87.11 Personal history of peptic ulcer disease; Z82.49 Family history of ischemic heart disease and other diseases of the circulatory system
CPT/HCPCS: 82962; J1170; J1200; J1885; J3010; Q0163

== ENCOUNTER 2019-05-12 13:41 | Inpatient (IN) | payer BC ==
[~2019-05-12] VITALS: Ht 167.6 cm; Wt 120.7 kg
[2019-05-12 15:00] VITALS: BP 118/64
--- NOTE | 2019-05-12 15:00 | NUR ---
Direct admit from home. Alert and oriented x's 4. Admitted for intractable headache. Oriented to room and controls. Side rails up x's 2 with call light in reach. Placed a call for Dr. Faustin for admission orders. Cont. monitor.
[2019-05-12] MEDS: IV NORMAL SALINE 1000ML BAG 1,000 ML IV SCH (16:55)
[2019-05-12] MEDS: metFORMIN 500 MG TABLET PO SCH (17:00)
[2019-05-12] MEDS: KETOROLAC 30 MG/ML VIAL. IV PRN ×2 (17:12→23:22)
[2019-05-12 17:32] LABS: BASO # 0.1 x10^3/uL (0.0-0.2); BASO % 1 % (0-3); EOS # 0.1 x10^3/uL (0.0-0.7); EOS % 1 % (0-3); HEMATOCRIT 33.4 % (36.0-47.0); LYMPH # 1.8 x10^3/uL (1.0-4.8); LYMPH % 17 % (24-48); MEAN CORPUSCULAR HEMOGLOBIN 28 pg (25-35); MEAN CORPUSCULAR HGB CONC 33 g/dL (31-37); MEAN CORPUSCULAR VOLUME 86 fL (79-100); MONO # 0.6 x10^3/uL (0.0-1.1); MONO % 6 % (0-9); NEUT # 7.8 x10^3/uL (1.8-7.7); NEUT % 75 % (31-73); PLATELET COUNT 305 x10^3/uL (140-400); RED CELL DISTRIBUTION WIDTH 15.8 % (11.5-14.5); WHITE BLOOD COUNT 10.4 x10^3/uL (4.0-11.0)
[2019-05-12 17:44] LABS: BILIRUBIN,URINE NEGATIVE (NEG); CLARITY,URINE CLOUDY; COLOR,URINE YELLOW; NITRITE,URINE NEGATIVE (NEG); PH,URINE 7.5; PROTEIN,URINE NEGATIVE (NEG-TRACE); UROBILINOGEN,URINE 0.2 mg/dL (0.2 mg/dL)
[2019-05-12 17:44] LABS: ALBUMIN 3.4 g/dL (3.4-5.0); ALBUMIN/GLOBULIN RATIO 0.9 (1.0-1.7); CALCIUM 8.5 mg/dL (8.5-10.1); CREATININE 0.8 mg/dL (0.6-1.0); GFR 76.9; POTASSIUM 3.7 mmol/L (3.5-5.1); TOTAL BILIRUBIN 0.2 mg/dL (0.2-1.0)
--- NOTE | 2019-05-12 18:04 | PDOC2 ---
NEUROLOGY CONSULT Date of Admission Date of Admission DATE: 05/12/19 TIME: 17:53 Reason for Consult Reason for Consult: Exacerbation of chronic headache. Chronic migraine headache. Pseudotumor cerebri syndrome, CSF opening pressure was 28 on 07/28/2015. 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 Old left parietal lesion as calcification. DM. HTN. HLD. Obesity. RECOMMENDATIONS/PLAN: Continue Topamax 200 mg bid. Start Diamox 250 mg q6h. Continue Lyrica 75 mg bid. Continue Amitriptyline 50 mg HS. Pain management. Brain MRI w/wo contrast. Lab: see orders. Obtain eye exam report from her refinery technician. Weight reduction. HISTORY OF THE PRESENT ILLNESS: This is a 48-year-old female patient with history of chronic headaches for more than 15 years. She was diagnosed as having pseudotumor cerebri syndrome in 2014 and was treated with Diamox and Topamax. She was then evaluated by Neurosurgery in [facility] and [facility] for shunt placement but she was not considered a candidate for shunt. She stated she had another LP in [facility] after 2014 but she did not remember the year and she was told by [facility] that her CSF pressure was high. She has increased headaches before and this time as well. She stated she has been having persistent headaches for about 2 weeks now as compression type of pain which she rated 10/10 in her right side of head and behind the eye and occipital head as well. She said she visited her refinery technician on 05/11/19 and she was told she had swelling in her right eye. Her visual field exam was said abnormal. No symptoms of decreased vision, diplopia, projectile vomiting, or focalized motor or sensory deficits. PAST MEDICAL HISTORY: See above. PAST SURGERY HISTORY: Colectomy. SOCIAL HISTORY: Denies illicit drug abuse. REVIEW OF SYSTEMS: Constitutional: No malnutrition, weight loss, night sweats, cachexia. Head: No traumatic brain or head injury. Skin: No edema, or rash. Ear: No infection, tinnitus. Eyes: No vision loss, color blindness. Nose: No bleeding or purulent discharges. Neck: Neck pain. Degenerative c-spine disease. Cardiac: HTN. Pulmonary: No hemoptysis, dyspnea. GI: No melena, hematochezia. Urinary/genital: UTI. Endocrinologic: DM. Obesity. Skeletomuscular: No muscular atrophy, deformity. Neurological: see HP. Psychiatric: Denies drug use/abuse. Otherwise, not -mwrzn review of systems. PHYSICAL EXAMINATION: General appearance is subacute distress. HEENT: Normocephalic and nontraumatic. Eyes, nose, ears, and throat are unremarkable. Neck is supple. No lymphadenopathy. No crepitus. Cardiovascular: S1, S2, regular rate and rhythm. Pulmonary: Clear to auscultation bilaterally. Abdomen: Bowel sounds are positive. Abdomen is soft, nontender, and nondistended. Extremities: No rash, lesions, or edema. No restriction of range of motion NEUROLOGICAL EXAMINATION: Alert. Oriented to time, place and person. PERRL. EOMI. CN: no focal findings. Muscle tone: normal. Muscle strength: 5 DTR: 2 at UE, 1 at knee. Plantar reflex: Flexor response bilaterally Gait: Not examined in bed. Sensory exam: no abnormal findings. No cerebellar signs elicited. Current Medications Current Medications Current Medications Sodium Chloride 1,000 ml @ 100 mls/hr Q10H IV Last administered on 05/12/19at 16:55; Start 05/12/19 at 15:45 Bupropion HCl (Wellbutrin Sr) 150 mg BID PO ; Start 05/12/19 at 21:00 Pregabalin (Lyrica) 75 mg BID PO ; Start 05/12/19 at 21:00 Amitriptyline HCl (Elavil) 50 mg QHS PO ; Start 05/12/19 at 21:00 Celecoxib (CeleBREX) 200 mg BID PO ; Start 05/12/19 at 21:00 Diazepam (Valium) 10 mg PRN TID PRN PO ANXIETY; Start 05/12/19 at 16:00 Levothyroxine Sodium (Synthroid) 25 mcg DAILY06 PO ; Start 05/13/19 at 06:00 Metformin HCl (Glucophage) 1,000 mg BIDWMEALS PO ; Start 05/12/19 at 17:00 Pantoprazole Sodium (Protonix) 40 mg DAILYAC PO ; Start 05/13/19 at 07:30 Topiramate (Topamax) 200 mg BID PO ; Start 05/12/19 at 21:00 Venlafaxine HCl (Effexor) 75 mg TID PO ; Start 05/12/19 at 21:00 Ketorolac Tromethamine (Toradol 30mg Vial) 30 mg PRN Q6HRS PRN IV PAIN Last administered on 05/12/19at 17:12; Start 05/12/19 at 17:00; Stop 05/17/19 at 16:59 Fentanyl Citrate (Fentanyl 2ml Vial) 75 mcg PRN Q2HR PRN IV PAIN; Start 05/12/19 at 17:45 Diphenhydramine HCl (Benadryl) 50 mg PRN Q6HRS PRN IVP ITCHING; Start 05/12/19 at 17:45 Active Scripts Active Reported Celebrex (Celecoxib) 200 Mg Capsule 200 Mg PO BID 30 Days Levothyroxine Sodium 25 Mcg Tablet 1 Tab PO DAILY Amitriptyline Hcl 50 Mg Tablet 1 Tab PO QHS Omeprazole 40 Mg Capsule.dr 1 Cap PO DAILY Lyrica (Pregabalin) 75 Mg Capsule 1 Cap PO BID Diazepam 10 Mg Tablet 10 Mg PO TID PRN Effexor Xr (Venlafaxine Hcl) 150 Mg Cap.er.24h 225 Mg PO DAILY07 Wellbutrin (Bupropion Hcl) 100 Mg Tablet 150 Mg PO BID Metformin Hcl 1,000 Mg Tablet 1,000 Mg PO BID Topamax (Topiramate) 100 Mg Tablet 200 Mg PO BID Allergies Allergies: Allergies Coded Allergies Type Severity Reaction Last Updated Verified No Known Drug Allergies 11/13/15 No ROS Review of System The patient denies any associated fevers, chills, headache, ear pain, rh inorrhea, sore throat, stiff neck, productive cough, chest pain, shortness of breath, back or flank pain, abdominal pain, nausea, vomiting, diarrhea, constipation, dysuria, rash, numbness, weakness, tingling, incontinence, difficulty ambulating, or diaphoresis. Physical Exam Physical Exam General: Well developed, well nourished, no acute distress, well appearing HEENT: Pupils equally round and reactive to light, EOMI, no discharge, normal conjunctiva Neck: Supple, no nuchal rigidity, no JVD, trachea midline, no tenderness Cardiac: RRR, no murmurs, no gallops, no rubs Chest/Lungs: CTAB, no wheeze, no rhonchi, no crackles Abdomen: soft, non-distended, no guarding, no peritoneal signs, non-tender Back: No tenderness Extremities: no edema, pulses intact, non-tender,capillary refill <3 sec bilateral upper and lower extremities, Neuro: Alert and oriented x 4, no focal deficits, normal speech Vitals Vitals: Vital Signs Date Time Temp Pulse Resp B/P (MAP) Pulse Ox O2 Delivery O2 Flow Rate FiO2 05/12/19 15:15 Room Air 05/12/19 15:00 99.0 52 20 118/64 (82) 96 99.0 Labs Labs Laboratory Tests Test 05/12/19 16:15 05/12/19 16:48 White Blood Count 10.4 x10^3/uL (4.0-11.0) Red Blood Count 3.90 x10^6/uL (3.50-5.40) Hemoglobin 11.0 g/dL (12.0-15.5) Hematocrit 33.4 % (36.0-47.0) Mean Corpuscular Volume 86 fL (79-100) Mean Corpuscular Hemoglobin 28 pg (25-35) Mean Corpuscular Hemoglobin Concent 33 g/dL (31-37) Red Cell Distribution Width 15.8 % (11.5-14.5) Platelet Count 305 x10^3/uL (140-400) Neutrophils (%) (Auto) 75 % (31-73) Lymphocytes (%) (Auto) 17 % (24-48) Monocytes (%) (Auto) 6 % (0-9) Eosinophils (%) (Auto) 1 % (0-3) Basophils (%) (Auto) 1 % (0-3) Neutrophils # (Auto) 7.8 x10^3/uL (1.8-7.7) Lymphocytes # (Auto) 1.8 x10^3/uL (1.0-4.8) Monocytes # (Auto) 0.6 x10^3/uL (0.0-1.1) Eosinophils # (Auto) 0.1 x10^3/uL (0.0-0.7) Basophils # (Auto) 0.1 x10^3/uL (0.0-0.2) Sodium Level 138 mmol/L (136-145) Potassium Level 3.7 mmol/L (3.5-5.1) Chloride Level 102 mmol/L (98-107) Carbon Dioxide Level 27 mmol/L (21-32) Anion Gap 9 (6-14) Blood Urea Nitrogen 13 mg/dL (7-20) Creatinine 0.8 mg/dL (0.6-1.0) Estimated GFR (Cockcroft-Gault) 76.9 BUN/Creatinine Ratio 16 (6-20) Glucose Level 96 mg/dL (70-99) Calcium Level 8.5 mg/dL (8.5-10.1) Total Bilirubin 0.2 mg/dL (0.2-1.0) Aspartate Amino Transf (AST/SGOT) 31 U/L (15-37) Alanine Aminotransferase (ALT/SGPT) 29 U/L (14-59) Alkaline Phosphatase 98 U/L (46-116) Total Protein 7.0 g/dL (6.4-8.2) Albumin 3.4 g/dL (3.4-5.0) Albumin/Globulin Ratio 0.9 (1.0-1.7) Glucose (Fingerstick) 82 mg/dL (70-99) Laboratory Tests Test 05/12/19 16:15 05/12/19 16:48 White Blood Count 10.4 x10^3/uL (4.0-11.0) Red Blood Count 3.90 x10^6/uL (3.50-5.40) Hemoglobin 11.0 g/dL (12.0-15.5) Hematocrit 33.4 % (36.0-47.0) Mean Corpuscular Volume 86 fL (79-100) Mean Corpuscular Hemoglobin 28 pg (25-35) Mean Corpuscular Hemoglobin Concent 33 g/dL (31-37) Red Cell Distribution Width 15.8 % (11.5-14.5) Platelet Count 305 x10^3/uL (140-400) Neutrophils (%) (Auto) 75 % (31-73) Lymphocytes (%) (Auto) 17 % (24-48) Monocytes (%) (Auto) 6 % (0-9) Eosinophils (%) (Auto) 1 % (0-3) Basophils (%) (Auto) 1 % (0-3) Neutrophils # (Auto) 7.8 x10^3/uL (1.8-7.7) Lymphocytes # (Auto) 1.8 x10^3/uL (1.0-4.8) Monocytes # (Auto) 0.6 x10^3/uL (0.0-1.1) Eosinophils # (Auto) 0.1 x10^3/uL (0.0-0.7) Basophils # (Auto) 0.1 x10^3/uL (0.0-0.2) Sodium Level 138 mmol/L (136-145) Potassium Level 3.7 mmol/L (3.5-5.1) Chloride Level 102 mmol/L (98-107) Carbon Dioxide Level 27 mmol/L (21-32) Anion Gap 9 (6-14) Blood Urea Nitrogen 13 mg/dL (7-20) Creatinine 0.8 mg/dL (0.6-1.0) Estimated GFR (Cockcroft-Gault) 76.9 BUN/Creatinine Ratio 16 (6-20) Glucose Level 96 mg/dL (70-99) Calcium Level 8.5 mg/dL (8.5-10.1) Total Bilirubin 0.2 mg/dL (0.2-1.0) Aspartate Amino Transf (AST/SGOT) 31 U/L (15-37) Alanine Aminotransferase (ALT/SGPT) 29 U/L (14-59) Alkaline Phosphatase 98 U/L (46-116) Total Protein 7.0 g/dL (6.4-8.2) Albumin 3.4 g/dL (3.4-5.0) Albumin/Globulin Ratio 0.9 (1.0-1.7) Glucose (Fingerstick) 82 mg/dL (70-99) ROBERTO ABRAHAM MD May 12, 2019 18:04
[2019-05-12 18:11] LABS: PROTHROMBIN TIME PATIENT 13.2 SEC (11.7-14.0)
[2019-05-12 18:16] LABS: BARBITURATES NEG (NEG); BENZODIAZEPINES POS (NEG); CANNABINOIDS NEG (NEG); COCAINE NEG (NEG); METHADONE NEG (NEG); OPIATES POS (NEG); PHENCYCLIDINE NEG (NEG)
[2019-05-12 18:19] LABS: RBC,URINE 0 /HPF (0-2); WBC,URINE 0 /HPF (0-4)
[2019-05-12 18:20] LABS: BACTERIA,URINE 0 /HPF (0-FEW); SQUAMOUS EPITHELIAL CELL,UR OCC /LPF
[2019-05-12 18:26] LABS: AMPHETAMINE/METHAMPHETAMINE NEG (NEG)
[2019-05-12 19:00] VITALS: BP 122/71
[2019-05-12] MEDS: acetaZOLAMIDE 250 MG TABLET. PO SCH ×2 (19:56→23:26)
[2019-05-12] MEDS: diphenhydrAMINE 50 MG/ML VIAL IVP PRN (20:05)
[2019-05-12] MEDS: fentaNYL PF VIAL 100 MCG/2 ML VIAL IV PRN ×2 (20:08→22:35)
[2019-05-12] MEDS: CELECOXIB 100 MG CAPSULE. PO SCH (21:18)
[2019-05-12] MEDS: VENLAFAXINE 75 MG TABLET. PO SCH (21:18)
[2019-05-12] MEDS: buPROPion SR 150 MG TABLET.SA PO SCH (21:18)
[2019-05-12] MEDS: PREGABALIN 75 MG CAPSULE PO SCH (21:18)
[2019-05-12] MEDS: TOPIRAMATE 100 MG TABLET. PO SCH (21:18)
[2019-05-12] MEDS: AMITRIPTYLINE HCL 25 MG TABLET. PO SCH (21:18)
[2019-05-12 23:00] VITALS: BP 109/55
[2019-05-13] MEDS: fentaNYL PF VIAL 100 MCG/2 ML VIAL IV PRN ×6 (03:14→21:20)
[2019-05-13] MEDS: IV NORMAL SALINE 1000ML BAG 1,000 ML IV SCH ×2 (03:15→12:34)
[2019-05-13] MEDS: diphenhydrAMINE 50 MG/ML VIAL IVP PRN ×3 (03:20→22:14)
[2019-05-13 03:44] VITALS: BP 110/56
[2019-05-13] MEDS: acetaZOLAMIDE 250 MG TABLET. PO SCH ×3 (05:50→18:21)
[2019-05-13] MEDS: LEVOTHYROXINE 25 MCG TABLET. PO SCH (05:50)
[2019-05-13 07:00] VITALS: BP 110/62
[2019-05-13] MEDS: metFORMIN 500 MG TABLET PO SCH ×2 (08:00→18:22)
[2019-05-13] MEDS: PANTOPRAZOLE 40 MG TABLET.DR. PO SCH (08:53)
[2019-05-13] MEDS: CELECOXIB 100 MG CAPSULE. PO SCH ×2 (08:53→18:22)
[2019-05-13] MEDS: PREGABALIN 75 MG CAPSULE PO SCH ×2 (08:54→21:10)
[2019-05-13] MEDS: TOPIRAMATE 100 MG TABLET. PO SCH ×2 (08:54→21:09)
[2019-05-13] MEDS: buPROPion SR 150 MG TABLET.SA PO SCH ×2 (08:55→21:09)
[2019-05-13] MEDS: VENLAFAXINE 75 MG TABLET. PO SCH ×3 (08:56→21:09)
[2019-05-13] MEDS ORDERED: GADOTERATE 7.5 MMOL/15ML VIAL. IVP ONE (09:30)
[2019-05-13 11:00] VITALS: BP 120/69
--- NOTE | 2019-05-13 11:25 | RAD ---
BRAIN WO/W CONTRAST History: Pseudotumor cerebri. Papilledema. Technique: Multiplanar, multi sequential pre and postcontrast MR imaging was performed of the brain. Contrast: 25 mL Dotarem. Comparison: February 02, 2018. Findings: No acute infarct. No intracranial hemorrhage. No mass effect. No hydrocephalus. Left parietal temporal chronic infarct. Left superior posterior dural calcification or calcified meningioma, unchanged. Motion degraded examination. No definite optic nerve ectasia. Normal appearance of the sella. No MRI findings to suggest intracranial hypertension. Imaged paranasal sinuses and mastoid air cells are clear. Impression: 1. Motion degraded examination. No acute intracranial abnormality. 2. Chronic left parietotemporal infarct. Electronically signed by: Burak Ramsay DO (05/13/2019 11:22 AM) [id number]
[2019-05-13] MEDS: KETOROLAC 30 MG/ML VIAL. IV PRN ×2 (12:35→18:46)
--- NOTE | 2019-05-13 12:55 | NUR ---
SS following for discharge planning. SS reviewed pt chart. Pt is from home with spouse and is currently requiring oxygen. No discharge needs noted at this time. SS will continue to follow for discharge planning.
[2019-05-13 15:00] VITALS: BP 110/48
--- NOTE | 2019-05-13 15:58 | RAD ---
Indication: Lumbar puncture requested for evaluation of pressures. Suspected pseudotumor cerebri. TECHNIQUE: After explaining risks and benefits of the procedure, informed consent was obtained. Appropriate site was chosen over the lumbar spine. The skin was prepped and draped using usual sterile procedure. 1 percent lidocaine was used for local anesthesia. 4 attempts were made to access the thecal sac under fluoroscopy with encounter of the bony structures at least 2 different levels. Patient was placed in oblique position as well without success. At that point the procedure was terminated. Total fluoroscopy time of 1.7 minutes. No images saved. COMPARISON: None Findings/ impression: Unsuccessful technically challenging lumbar puncture. Electronically signed by: Kal Peck DO (05/13/2019 3:55 PM) [facility]
--- NOTE | 2019-05-13 17:03 | HP ---
ADMIT DATE: CHIEF COMPLAINT AND HISTORY OF PRESENT ILLNESS: This 48-year-old white female is well known to me from followup in the office. The patient was admitted directly on the day of admission with headache starting on 04/27/2019 and despite multiple tries of medicines at home, had no results and was admitted for intractable headache. PAST MEDICAL HISTORY: Remarkable for chronic headaches. She has a history of chronic migraine headache, history of an old left parietal and temporal CVA likely related to migrainous spasm in the past. She has a history of pseudotumor cerebri syndrome. History of diabetes, hyperlipidemia, hypertension. MEDICATIONS: Brought with the patient, listed on the computer and have been addressed. ALLERGIES: She has no known drug allergies. SOCIAL HISTORY: She is nonsmoker, nondrinker, does not abuse drugs. FAMILY HISTORY: Noncontributory. REVIEW OF SYSTEMS: Remarkable for the headache, she does have some nausea with it, also has photophobia, phonophobia with it. PHYSICAL EXAMINATION: GENERAL: She is a well-developed and well-nourished white female, who appears very uncomfortable. VITAL SIGNS: Stable. She is afebrile. HEAD, EYES, EARS, NOSE AND THROAT: Unremarkable. NECK: Supple without adenopathy or thyromegaly. CHEST: Clear to auscultation and percussion. HEART: Regular rate and rhythm without S3, S4, or murmur. ABDOMEN: Soft, nontender, without hepatosplenomegaly or masses. EXTREMITIES: Without cyanosis, clubbing or edema. NEUROLOGIC: Nonfocal. IMPRESSION: Intractable headache. PLAN: The patient has been admitted. She will be hydrated. Labs will be checked. She will be restarted on the regimen that she was on last time for the headache. Neurology will be consulted as usual and the patient will be monitored, managed and treated appropriately. BATOOL DONOHUE MD DR: EMILY/gil JOB#: [id number] / [id number]
--- NOTE | 2019-05-13 17:19 | PDOC ---
PROGRESS NOTES Assessment Assessment Exacerbation of chronic headache. Chronic migraine headache. Pseudotumor cerebri syndrome, CSF opening pressure was 28 on 07/28/2015. 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 Old left parietal lesion as calcification. DM. HTN. HLD. Obesity. RECOMMENDATIONS/PLAN: Continue Topamax 200 mg bid. Continue Diamox 250 mg q6h. Continue Lyrica 75 mg bid. Continue Amitriptyline 50 mg HS. Pain management. LP by Radiology to measure CSF opening and closing pressure, but failed due to difficult bony structure. Obtain eye exam report from her pharmacy helper. Consulted [facility]. Consulted Pain Clinic. Weight reduction. Brain MRI w/wo contrast on 05/13/19: No acute abnormal findings. HISTORY OF THE PRESENT ILLNESS: This is a 48-year-old female patient with history of chronic headaches for more than 15 years. She was diagnosed as having pseudotumor cerebri syndrome in 2014 and was treated with Diamox and Topamax. She was then evaluated by Neurosurgery in [facility] and [facility] for shunt placement but she was not considered a candidate for shunt. She stated she had another LP in [facility] after 2014 but she did not remember the year and she was told by [facility] that her CSF pressure was high. She has increased headaches before and this time as well. She stated she has been having persistent headaches for about 2 weeks now as compression type of pain which she rated 10/10 in her right side of head and behind the eye and occipital head as well. She said she visited her pharmacy helper on 05/11/19 and she was told she had swelling in her right eye. Her visual field exam was said abnormal. No symptoms of decreased vision, diplopia, projectile vomiting, or focalized motor or sensory deficits. She stated on 05/13/19 still has significant headaches. PAST MEDICAL HISTORY: See above. PAST SURGERY HISTORY: Colectomy. SOCIAL HISTORY: Denies illicit drug abuse. REVIEW OF SYSTEMS: Constitutional: No malnutrition, weight loss, night sweats, cachexia. Head: No traumatic brain or head injury. Skin: No edema, or rash. Ear: No infection, tinnitus. Eyes: No vision loss, color blindness. Nose: No bleeding or purulent discharges. Neck: Neck pain. Degenerative c-spine disease. Cardiac: HTN. Pulmonary: No hemoptysis, dyspnea. GI: No melena, hematochezia. Urinary/genital: UTI. Endocrinologic: DM. Obesity. Skeletomuscular: No muscular atrophy, deformity. Neurological: see HP. Psychiatric: Denies drug use/abuse. Otherwise, not [id number] review of systems. PHYSICAL EXAMINATION: General appearance is subacute distress. HEENT: Normocephalic and nontraumatic. Eyes, nose, ears, and throat are unremarkable. Neck is supple. No lymphadenopathy. No crepitus. Cardiovascular: S1, S2, regular rate and rhythm. Pulmonary: Clear to auscultation bilaterally. Abdomen: Bowel sounds are positive. Abdomen is soft, nontender, and nondistended. Extremities: No rash, lesions, or edema. No restriction of range of motion NEUROLOGICAL EXAMINATION: Alert. Oriented to time, place and person. PERRL. EOMI. CN: no focal findings. Muscle tone: normal. Muscle strength: 5- DTR: 2 at UE, 1 at knee. Plantar reflex: Flexor response bilaterally Gait: Not examined in bed. Sensory exam: no abnormal findings. No cerebellar signs elicited. Objective Objective Vital Signs Date Time Temp Pulse Resp B/P (MAP) Pulse Ox O2 Delivery O2 Flow Rate FiO2 05/13/19 15:58 Room Air 05/13/19 13:00 95 2.0 05/13/19 11:00 98.6 74 17 120/69 (86) 98.6 Intake and Output 05/13/19 06:59 Intake Total 200 ml Balance 200 ml Intake Oral 200 ml # Voids 2 Vitals Signs Vitals VS - Last 72 Hours, by Label Date Time Temp Pulse Resp B/P (MAP) Pulse Ox O2 Delivery O2 Flow Rate FiO2 05/13/19 15:58 Room Air 05/13/19 13:00 95 Room Air 2.0 05/13/19 12:28 95 Room Air 2.0 05/13/19 11:00 98.6 74 17 120/69 (86) 96 Room Air 98.6 05/13/19 09:01 95 Room Air 2.0 05/13/19 07:40 Room Air 2.0 05/13/19 07:00 98.9 79 18 110/62 (78) 98 Room Air 98.9 05/13/19 06:29 16 05/13/19 05:50 18 Nasal Cannula 2.0 05/13/19 03:44 99.1 72 20 110/56 (74) 95 Nasal Cannula 2.0 99.1 05/13/19 03:14 16 Nasal Cannula 2.0 05/12/19 23:00 98.3 82 18 109/55 (73) 90 Room Air 98.3 05/12/19 22:35 16 Room Air 05/12/19 20:08 16 Room Air 05/12/19 20:00 Room Air 05/12/19 19:00 98.6 80 18 122/71 (88) 96 Room Air 98.6 05/12/19 15:15 Room Air 05/12/19 15:00 99.0 52 20 118/64 (82) 96 Room Air 99.0 Laboratory Laboratory Laboratory Tests Test 05/12/19 20:29 05/13/19 08:03 05/13/19 12:08 Glucose (Fingerstick) 89 mg/dL (70-99) 91 mg/dL (70-99) 80 mg/dL (70-99) Medication Medications Current Medications Acetazolamide (Diamox) 250 mg Q6HRS PO Last administered on 05/13/19at 12:31; Start 05/12/19 at 19:00 Amitriptyline HCl (Elavil) 50 mg QHS PO Last administered on 05/12/19at 21:18; Start 05/12/19 at 21:00 Bupropion HCl (Wellbutrin Sr) 150 mg BID PO Last administered on 05/13/19at 08:55; Start 05/12/19 at 21:00 Celecoxib (CeleBREX) 200 mg BID PO Last administered on 05/13/19at 08:53; Start 05/12/19 at 21:00 Diphenhydramine HCl (Benadryl) 50 mg PRN Q6HRS PRN IVP ITCHING Last administered on 05/13/19at 15:57; Start 05/12/19 at 17:45 Fentanyl Citrate (Fentanyl 2ml Vial) 75 mcg PRN Q2HR PRN IV PAIN Last administered on 05/13/19 15:58; Start 05/12/19 at 17:45 Gadoterate Meglumine (Dotarem) 25.2 ml 1X ONCE IVP Last administered on 05/13/19at 09:40; Start 05/13/19 at 09:30; Stop 05/13/19 at 09:31; Status DC Levothyroxine Sodium (Synthroid) 25 mcg DAILY06 PO Last administered on 05/13/19 05:50; Start 05/13/19 at 06:00 Pantoprazole Sodium (Protonix) 40 mg DAILYAC PO Last administered on 05/13/19 08:53; Start 05/13/19 at 07:30 Pregabalin (Lyrica) 75 mg BID PO Last administered on 05/13/19 08:54; Start 05/12/19 at 21:00 Topiramate (Topamax) 200 mg BID PO Last administered on 05/13/19 08:54; Start 05/12/19 at 21:00 Venlafaxine HCl (Effexor) 75 mg TID PO Last administered on 05/13/19at 12:31; Start 05/12/19 at 21:00 Comment Review of Relevant I have reviewed the following items génesis (where applicable) has been applied. ROBERTO ABRAHAM MD May 13, 2019 17:19
[2019-05-13] MEDS ORDERED: SUMAtriptan SUCCINATE 100 MG TABLET PO PRN (17:30)
[2019-05-13 19:00] VITALS: BP 113/53
[2019-05-13] MEDS: AMITRIPTYLINE HCL 25 MG TABLET. PO SCH (21:09)
[2019-05-13] MEDS: diazePAM 5 MG TABLET PO PRN (21:19)
[2019-05-13 23:00] VITALS: BP 107/58
[2019-05-14] VITALS (11 sets, daily range): BP systolic 111–166; BP diastolic 49–84
[2019-05-14] MEDS: acetaZOLAMIDE 250 MG TABLET. PO SCH ×5 (00:17→23:22)
[2019-05-14] MEDS: IV NORMAL SALINE 1000ML BAG 1,000 ML IV SCH ×4 (03:36→23:25)
[2019-05-14] MEDS: KETOROLAC 30 MG/ML VIAL. IV PRN ×2 (03:37→19:54)
[2019-05-14] MEDS: LEVOTHYROXINE 25 MCG TABLET. PO SCH (05:48)
[2019-05-14] MEDS: fentaNYL PF VIAL 100 MCG/2 ML VIAL IV PRN ×4 (07:13→17:00)
--- NOTE | 2019-05-14 07:48 | RAD ---
Indication: Failed LP. Evaluate for abnormal bony structure. TECHNIQUE: CT of the lumbar spine without IV contrast with multiplanar reformats COMPARISON: None FINDINGS: Lumbar spine is in normal anatomic alignment. There are 5 lumbar type vertebral bodies. No compression deformities. Mild intervertebral disc space narrowing seen at L5-S1. Facet joints are in normal anatomic alignment. Mild narrowing of the right neuroforamina at L4-L5 and L5-S1. Mild multilevel facet arthropathy. SI joints are within normal limits. No acute fractures. Nodular thickening is seen of the left adrenal gland. Mild atherosclerotic plaque in the infrarenal aorta. IMPRESSION: No significant degenerative changes. Electronically signed by: Kal Peck DO (05/14/2019 7:46 AM) [facility], [place]
--- NOTE | 2019-05-14 08:05 | PDOC ---
GENERAL General: vss and afebrile. awake and alert. chest clear, heart regular, abdomen benign. ongoing headache despite current therapy. unsuccessful LP by radiology yesterday with ct this am and hopefully will get same done today. otherwise same. VITAL SIGNS/I&O Vital Signs/I&O: Vital Signs Date Time Temp Pulse Resp B/P (MAP) Pulse Ox O2 Delivery O2 Flow Rate FiO2 05/14/19 07:13 Room Air 05/14/19 03:00 98.6 82 18 121/62 (81) 96 98.6 05/13/19 13:00 2.0 I & O 05/13/19 05/13/19 05/14/19 14:59 22:59 06:59 Intake Total 420 ml 250 ml 600 ml Balance 420 ml 250 ml 600 ml ALLERGIES Allergies: Allergies Coded Allergies Type Severity Reaction Last Updated Verified No Known Drug Allergies 11/13/15 No MEDS Medications: Current Medications Medications (Trade) Dose Ordered Sig/Arturo Route PRN Reason Start Time Stop Time Status Last Admin Dose Admin Gadoterate Meglumine (Dotarem) 25.2 ml 1X ONCE IVP 05/13/19 09:30 05/13/19 09:31 DC 05/13/19 09:40 LAB Lab: Laboratory Tests Test 05/13/19 12:08 05/13/19 17:20 05/13/19 21:26 05/14/19 07:50 Glucose (Fingerstick) 80 mg/dL (70-99) 91 mg/dL (70-99) 165 mg/dL (70-99) H 92 mg/dL (70-99) BATOOL DONOHUE MD May 14, 2019 08:05
[2019-05-14] MEDS: TOPIRAMATE 100 MG TABLET. PO SCH ×2 (08:21→19:56)
[2019-05-14] MEDS: metFORMIN 500 MG TABLET PO SCH ×2 (08:21→16:58)
[2019-05-14] MEDS: PREGABALIN 75 MG CAPSULE PO SCH ×2 (08:22→19:56)
[2019-05-14] MEDS: CELECOXIB 100 MG CAPSULE. PO SCH ×2 (08:22→19:56)
[2019-05-14] MEDS: VENLAFAXINE 75 MG TABLET. PO SCH ×3 (08:22→19:56)
[2019-05-14] MEDS: buPROPion SR 150 MG TABLET.SA PO SCH ×2 (08:22→19:57)
[2019-05-14] MEDS: PANTOPRAZOLE 40 MG TABLET.DR. PO SCH (08:22)
--- NOTE | 2019-05-14 13:30 | NUR ---
SS following up with discharge planning. Pt is currently on room air. No discharge needs noted at this time. SS will continue to follow for discharge planning.
[2019-05-14] MEDS: diazePAM 5 MG TABLET PO PRN (13:31)
[2019-05-14] MEDS: MORPHINE SULFATE 2 MG/ML VIAL. IV PRN ×2 (14:17→23:23)
--- NOTE | 2019-05-14 14:43 | NUR ---
Called Dr. Wilson for orders regarding CSF fluid use, says she will put them in, but mainly wanted pressure-pressure of [address] Wilson.
--- NOTE | 2019-05-14 14:47 | RAD ---
DIAGNOSTIC LUMBAR PUNCTURE 05/14/2019 HISTORY: History of pseudotumor cerebra. Persistent headache. Failed attempt at lumbar puncture, yesterday Discussion: The risks and benefits of the procedure were discussed the patient. Informed consent was obtained. A timeout procedure was performed. The patient was placed in the prone position on the fluoroscopy table. A suitable entry site into the central canal through the L3-L4 interlaminar space was identified with fluoroscopic guidance and the skin surface was marked. The patient was prepped and draped in sterile fashion. 1% lidocaine solution without epinephrine was infiltrated into the skin and deep soft tissues along the expected needle track. A 22-gauge spinal needle was advanced into the thecal sac with intermittent fluoroscopic guidance. Opening pressures were measured at 23 cm water. A total of 12 mL CSF was collected and sent to the laboratory. The needle was removed without complication. The patient was instructed to remain in a recumbent position for approximately 4 hours. IMPRESSION: Successful lumbar puncture. Opening pressure 23 cm of water. 12 cc clear CSF collected Electronically signed by: Geovanny Dial MD (05/14/2019 2:44 PM) [id number]
--- NOTE | 2019-05-14 15:08 | PDOC ---
PROGRESS NOTES Assessment Assessment Intractable migraine headache. Chronic migraine headache. Chronic migraine headache. Pseudotumor cerebri syndrome, CSF opening pressure was 28 on 07/28/2015, and 23 on 05/14/19. 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 Old left parietal lesion as calcification. DM. HTN. HLD. Obesity. RECOMMENDATIONS/PLAN: Add Morphine IV since 05/13/19. Increase Imitrex to 100 mg bid prn. Continue Topamax 200 mg bid. Continue Diamox 250 mg q6h (helped her headaches). May taper it off after a few months. Continue Lyrica 75 mg bid. Continue Amitriptyline 50 mg HS. Pain management. Obtain eye exam report from her lead customer service representative. Consulted Pain Clinic. Weight reduction. Brain MRI w/wo contrast on 05/13/19: No acute abnormal findings. LP performed by Interventional Radiology on 05/14/19. CSF opening pressure 23. LP performed by Radiologist on 05/13/19 failed. HISTORY OF THE PRESENT ILLNESS: This is a 48-year-old female patient with history of chronic headaches for more than 15 years. She was diagnosed as having pseudotumor cerebri syndrome in 2014 and was treated with Diamox and Topamax. She was then evaluated by Neurosurgery in [facility] and [facility] for shunt placement but she was not considered a candidate for shunt. She stated she had another LP in [facility] after 2014 but she did not remember the year and she was told by [facility] that her CSF pressure was high. She has increased headaches before and this time as well. She stated she has been having persistent headaches for about 2 weeks now as compression type of pain which she rated 10/10 in her right side of head and behind the eye and occipital head as well. She said she visited her lead customer service representative on 05/11/19 and she was told she had swelling in her right eye. Her visual field exam was said abnormal. No symptoms of decreased vision, diplopia, projectile vomiting, or focalized motor or sensory deficits. She stated on 05/14/19 still has headaches but intensity decreased from > 10/10 to 7-8/10. PAST MEDICAL HISTORY: See above. PAST SURGERY HISTORY: Colectomy. SOCIAL HISTORY: Denies illicit drug abuse. REVIEW OF SYSTEMS: Constitutional: No malnutrition, weight loss, night sweats, cachexia. Head: No traumatic brain or head injury. Skin: No edema, or rash. Ear: No infection, tinnitus. Eyes: No vision loss, color blindness. Nose: No bleeding or purulent discharges. Neck: Neck pain. Degenerative c-spine disease. Cardiac: HTN. Pulmonary: No hemoptysis, dyspnea. GI: No melena, hematochezia. Urinary/genital: UTI. Endocrinologic: DM. Obesity. Skeletomuscular: No muscular atrophy, deformity. Neurological: see HP. Psychiatric: Denies drug use/abuse. Otherwise, not [id number] review of systems. PHYSICAL EXAMINATION: General appearance is in subacute distress. HEENT: Normocephalic and nontraumatic. Eyes, nose, ears, and throat are unremarkable. Neck is supple. No lymphadenopathy. No crepitus. Cardiovascular: S1, S2, regular rate and rhythm. Pulmonary: Clear to auscultation bilaterally. Abdomen: Bowel sounds are positive. Abdomen is soft, nontender, and nondistended. Extremities: No rash, lesions, or edema. No restriction of range of motion NEUROLOGICAL EXAMINATION: Alert. Oriented to time, place and person. PERRL. EOMI. CN: no focal findings. Muscle tone: normal. Muscle strength: 5- DTR: 2 at UE, 1 at knee. Plantar reflex: Flexor response bilaterally Gait: Not examined in bed. Sensory exam: no abnormal findings. No cerebellar signs elicited. Objective Objective Vital Signs Date Time Temp Pulse Resp B/P (MAP) Pulse Ox O2 Delivery O2 Flow Rate FiO2 05/14/19 14:17 22 Room Air 05/14/19 13:55 89 155/77 (103) 94 05/14/19 11:00 98.1 98.1 05/13/19 13:00 2.0 Intake and Output 05/14/19 07:00 Intake Total 1270 ml Balance 1270 ml Intake Oral 1270 ml # Voids 9 Vitals Signs Vitals VS - Last 72 Hours, by Label Date Time Temp Pulse Resp B/P (MAP) Pulse Ox O2 Delivery O2 Flow Rate FiO2 05/14/19 14:17 22 Room Air 05/14/19 13:55 89 18 155/77 (103) 94 Room Air 05/14/19 13:45 89 18 166/84 (111) 98 Room Air 05/14/19 13:24 Room Air 05/14/19 12:32 20 Room Air 05/14/19 11:00 98.1 82 16 124/73 (90) 95 Room Air 98.1 05/14/19 10:27 Room Air 05/14/19 08:00 Room Air 05/14/19 07:13 Room Air 05/14/19 07:00 98.8 73 16 111/49 (69) 97 Room Air 98.8 05/14/19 03:00 98.6 82 18 121/62 (81) 96 Room Air 98.6 05/13/19 23:00 99.4 85 16 107/58 (74) 93 Room Air 99.4 05/13/19 21:50 16 05/13/19 21:20 16 Room Air 05/13/19 20:00 Room Air 05/13/19 19:00 99.2 83 18 113/53 (73) 95 Room Air 99.2 05/13/19 15:58 Room Air 05/13/19 15:00 98.2 78 17 110/48 (68) 95 Room Air 98.2 05/13/19 13:00 95 2.0 05/13/19 12:28 95 Room Air 2.0 05/13/19 11:00 98.6 74 17 120/69 (86) 96 Room Air 98.6 05/13/19 09:01 95 Room Air 2.0 05/13/19 07:40 Room Air 2.0 05/13/19 07:00 98.9 79 18 110/62 (78) 98 Room Air 98.9 Laboratory Laboratory Laboratory Tests Test 05/13/19 17:20 05/13/19 21:26 05/14/19 07:50 05/14/19 11:47 Glucose (Fingerstick) 91 mg/dL (70-99) 165 mg/dL (70-99) 92 mg/dL (70-99) 99 mg/dL (70-99) Medication Medications Current Medications Morphine Sulfate (Morphine Sulfate) 2 mg PRN Q6HRS PRN IV PAIN Last administered on 05/14/19at 14:17; Start 05/13/19 at 17:30 Sumatriptan Succinate (Imitrex) 50 mg PRN Q8HRS PRN PO MIGRAINE HEADACHE; Start 05/13/19 at 17:30 Comment Review of Relevant I have reviewed the following items génesis (where applicable) has been applied. ROBERTO ABRAHAM MD May 14, 2019 15:08
[2019-05-14 15:47] LABS: CSF CLARITY CLEAR; CSF COLOR COLORLESS
[2019-05-14 15:49] LABS: CSF RBC COUNT 12 /cmm (Not Established); CSF WBC COUNT 4 /cmm (Not Established)
[2019-05-14] MEDS: AMITRIPTYLINE HCL 25 MG TABLET. PO SCH (19:57)
[2019-05-14] MEDS: diphenhydrAMINE 50 MG/ML VIAL IVP PRN (19:59)
[2019-05-15 03:20] VITALS: BP 135/83
[2019-05-15] MEDS: PANTOPRAZOLE 40 MG TABLET.DR. PO SCH (06:15)
[2019-05-15] MEDS: IV NORMAL SALINE 1000ML BAG 1,000 ML IV SCH (06:15)
[2019-05-15] MEDS: LEVOTHYROXINE 25 MCG TABLET. PO SCH (06:15)
[2019-05-15] MEDS: acetaZOLAMIDE 250 MG TABLET. PO SCH ×3 (06:15→17:27)
[2019-05-15] MEDS: MORPHINE SULFATE 2 MG/ML VIAL. IV PRN ×4 (06:16→23:16)
[2019-05-15] MEDS: diphenhydrAMINE 50 MG/ML VIAL IVP PRN ×2 (06:20→17:20)
[2019-05-15 07:00] VITALS: BP 122/73
[2019-05-15] MEDS: TOPIRAMATE 100 MG TABLET. PO SCH ×2 (09:58→21:16)
[2019-05-15] MEDS: metFORMIN 500 MG TABLET PO SCH ×2 (09:58→16:05)
[2019-05-15] MEDS: PREGABALIN 75 MG CAPSULE PO SCH ×2 (09:58→21:16)
[2019-05-15] MEDS: CELECOXIB 100 MG CAPSULE. PO SCH ×2 (09:59→21:15)
[2019-05-15] MEDS: VENLAFAXINE 75 MG TABLET. PO SCH ×3 (09:59→21:16)
[2019-05-15] MEDS: buPROPion SR 150 MG TABLET.SA PO SCH ×2 (09:59→21:15)
--- NOTE | 2019-05-15 10:55 | PDOC ---
Provider Note Provider Note vss, labs ok, no temp or new sxs, findings- sleeping aftermorphine- cont same ANABELL FIELDS MD May 15, 2019 10:55
[2019-05-15 11:00] VITALS: BP 135/81
[2019-05-15] MEDS: KETOROLAC 30 MG/ML VIAL. IV PRN ×2 (11:30→21:22)
[2019-05-15 15:00] VITALS: BP 124/69
--- NOTE | 2019-05-15 16:46 | PDOC ---
PROGRESS NOTES Assessment Assessment Intractable migraine headache. Chronic migraine headache. Pseudotumor cerebri syndrome, CSF opening pressure was 28 on 07/28/2015, and 23 on 05/14/19. 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 Old left parietal lesion as calcification. DM. HTN. HLD. Obesity. RECOMMENDATIONS/PLAN: Add Morphine IV since 05/13/19. Increased Imitrex 50 mg q6h Morphine 2 mg IV q4 hours.. Continue Topamax 200 mg bid. Continue Diamox 250 mg q6h (helped her headaches). May taper it off after a few months. Continue Lyrica 75 mg bid. Continue Amitriptyline 50 mg HS. Pain management. Obtain eye exam report from her machine group leader. Consulted Pain Clinic. Weight reduction. Brain MRI w/wo contrast on 05/13/19: No acute abnormal findings. LP performed by Interventional Radiology on 05/14/19. CSF opening pressure 23. LP performed by Radiologist on 05/13/19 failed. Still has not got the report from her machine group leader because she has not provided information to her nurse so far. HISTORY OF THE PRESENT ILLNESS: This is a 48-year-old female patient with history of chronic headaches for more than 15 years. She was diagnosed as having pseudotumor cerebri syndrome in 2014 and was treated with Diamox and Topamax. She was then evaluated by Neurosurgery in [facility] and [facility] for shunt placement but she was not considered a candidate for shunt. She stated she had another LP in [facility] after 2014 but she did not remember the year and she was told by that her CSF pressure was high. She has increased headaches before and this time as well. She stated she has been having persistent headaches for about 2 weeks now as compression type of pain which she rated 10/10 in her right side of head and behind the eye and occipital head as well. She said she visited her machine group leader on 05/11/19 and she was told she had swelling in her right eye. Her visual field exam was said abnormal. No symptoms of decreased vision, diplopia, projectile vomiting, or focalized motor or sensory deficits. She stated on 05/15/19 still has headaches 10/10. PAST MEDICAL HISTORY: See above. PAST SURGERY HISTORY: Colectomy. SOCIAL HISTORY: Denies illicit drug abuse. REVIEW OF SYSTEMS: Constitutional: No malnutrition, weight loss, night sweats, cachexia. Head: No traumatic brain or head injury. Skin: No edema, or rash. Ear: No infection, tinnitus. Eyes: No vision loss, color blindness. Nose: No bleeding or purulent discharges. Neck: Neck pain. Degenerative c-spine disease. Cardiac: HTN. Pulmonary: No hemoptysis, dyspnea. GI: No melena, hematochezia. Urinary/genital: UTI. Endocrinologic: DM. Obesity. Skeletomuscular: No muscular atrophy, deformity. Neurological: see HP. Psychiatric: Denies drug use/abuse. Otherwise, not [id number] review of systems. PHYSICAL EXAMINATION: General appearance is in subacute distress. HEENT: Normocephalic and nontraumatic. Eyes, nose, ears, and throat are unremarkable. Neck is supple. No lymphadenopathy. No crepitus. Cardiovascular: S1, S2, regular rate and rhythm. Pulmonary: Clear to auscultation bilaterally. Abdomen: Bowel sounds are positive. Abdomen is soft, nontender, and nondistended. Extremities: No rash, lesions, or edema. No restriction of range of motion NEUROLOGICAL EXAMINATION: Alert. Oriented to time, place and person. PERRL. EOMI. CN: no focal findings. Muscle tone: normal. Muscle strength: 5- DTR: 2 at UE, 1 at knee. Plantar reflex: Flexor response bilaterally Gait: Not examined in bed. Sensory exam: no abnormal findings. No cerebellar signs elicited. Objective Objective Vital Signs Date Time Temp Pulse Resp B/P (MAP) Pulse Ox O2 Delivery O2 Flow Rate FiO2 05/15/19 16:06 95 Room Air 05/15/19 15:00 98.4 77 18 124/69 (87) 98.4 05/15/19 06:16 2.0 Intake and Output 05/15/19 06:59 Intake Total 390 ml Balance 390 ml Intake Oral 390 ml # Voids 2 Vitals Signs Vitals VS - Last 72 Hours, by Label Date Time Temp Pulse Resp B/P (MAP) Pulse Ox O2 Delivery O2 Flow Rate FiO2 05/15/19 16:06 95 Room Air 05/15/19 15:00 98.4 77 18 124/69 (87) 95 Room Air 98.4 05/15/19 11:25 Room Air 05/15/19 11:00 98.4 79 18 135/81 (99) 94 Room Air 98.4 05/15/19 09:58 Room Air 05/15/19 08:00 Room Air 05/15/19 07:00 98.5 72 18 122/73 (89) 95 Room Air 98.5 05/15/19 06:16 20 95 Room Air 2.0 05/15/19 03:20 98.8 79 18 135/83 (100) 95 Room Air 98.8 05/14/19 23:53 20 95 05/14/19 23:23 20 95 Room Air 05/14/19 23:15 99.1 82 18 125/75 (92) 95 Room Air 99.1 05/14/19 20:00 Room Air 05/14/19 19:20 99.2 87 18 131/77 (95) 95 Room Air 99.2 05/14/19 17:34 Room Air 05/14/19 17:00 Room Air 05/14/19 15:45 83 149/73 (98) 95 05/14/19 15:30 82 141/70 (93) 93 05/14/19 15:15 82 143/74 (97) 93 05/14/19 15:00 98.9 86 16 146/75 (98) 96 Room Air 98.9 05/14/19 15:00 85 140/74 (96) 93 05/14/19 14:17 22 Room Air 05/14/19 13:55 89 18 155/77 (103) 94 Room Air 05/14/19 13:45 89 18 166/84 (111) 98 Room Air 05/14/19 12:32 20 Room Air 05/14/19 11:00 98.1 82 16 124/73 (90) 95 Room Air 98.1 05/14/19 10:27 Room Air 05/14/19 08:00 Room Air 05/14/19 07:13 Room Air 05/14/19 07:00 98.8 73 16 111/49 (69) 97 Room Air 98.8 Laboratory Laboratory Laboratory Tests Test 05/14/19 20:36 05/15/19 07:35 05/15/19 11:09 05/15/19 15:30 Glucose (Fingerstick) 94 mg/dL (70-99) 77 mg/dL (70-99) 107 mg/dL (70-99) 78 mg/dL (70-99) Microbiology 05/14/19 CSF Gram Stain - Final, Complete Comment Review of Relevant I have reviewed the following items génesis (where applicable) has been applied. ROBERTO ABRAHAM MD May 15, 2019 16:46
[2019-05-15 19:00] VITALS: BP 138/81
[2019-05-15] MEDS: fentaNYL PF VIAL 100 MCG/2 ML VIAL IV PRN (20:35)
[2019-05-15] MEDS: AMITRIPTYLINE HCL 25 MG TABLET. PO SCH (21:16)
[2019-05-15 23:00] VITALS: BP 123/73
[2019-05-16] MEDS: acetaZOLAMIDE 250 MG TABLET. PO SCH ×4 (00:06→17:13)
[2019-05-16] MEDS: IV NORMAL SALINE 1000ML BAG 1,000 ML IV SCH (00:07)
[2019-05-16] MEDS: diphenhydrAMINE 50 MG/ML VIAL IVP PRN ×3 (00:17→19:45)
[2019-05-16 03:00] VITALS: BP 120/75
[2019-05-16] MEDS: LEVOTHYROXINE 25 MCG TABLET. PO SCH (06:00)
[2019-05-16] MEDS: PANTOPRAZOLE 40 MG TABLET.DR. PO SCH (06:00)
[2019-05-16] MEDS: MORPHINE SULFATE 2 MG/ML VIAL. IV PRN ×3 (06:00→19:45)
[2019-05-16 07:00] VITALS: BP 137/81
[2019-05-16] MEDS: TOPIRAMATE 100 MG TABLET. PO SCH ×2 (09:55→22:15)
[2019-05-16] MEDS: metFORMIN 500 MG TABLET PO SCH ×2 (09:55→15:49)
[2019-05-16] MEDS: CELECOXIB 100 MG CAPSULE. PO SCH ×2 (09:56→22:14)
--- NOTE | 2019-05-16 09:56 | PDOC ---
Provider Note Provider Note vss, no change in exam or sxs- csf 23 mm pressure per lp, fluid ok- dc iv fluid ,rest same ANABELL FIELDS MD May 16, 2019 09:56
[2019-05-16] MEDS: PREGABALIN 75 MG CAPSULE PO SCH ×2 (09:57→22:15)
[2019-05-16] MEDS: VENLAFAXINE 75 MG TABLET. PO SCH ×3 (09:58→22:14)
[2019-05-16] MEDS: buPROPion SR 150 MG TABLET.SA PO SCH ×2 (09:58→22:14)
[2019-05-16] MEDS: KETOROLAC 30 MG/ML VIAL. IV PRN ×3 (09:58→22:14)
[2019-05-16 11:00] VITALS: BP 151/85
[2019-05-16 15:00] VITALS: BP 134/80
--- NOTE | 2019-05-16 17:33 | PDOC ---
PROGRESS NOTES Assessment Assessment Intractable migraine headache. Chronic migraine headache. Pseudotumor cerebri syndrome, CSF opening pressure was 28 on 07/28/2015, and 23 on 05/14/19. 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 Old left parietal lesion as calcification. DM. HTN. HLD. Obesity. Calf pain. RECOMMENDATIONS/PLAN: Morphine 2mg IV q6h PRN. Increased Imitrex to 50 mg q6h, PRN. Continue Topamax 200 mg bid. Continue Diamox 250 mg q6h (helped her headaches). May taper it off after a few months. Continue Lyrica 75 mg bid. Continue Amitriptyline 50 mg HS. LE US. To obtain eye exam report from her vice president lending, but she still has not provided information of her vice president lending, so floor has not been able to located her eye exam reports. Weight reduction. Brain MRI w/wo contrast on 05/13/19: No acute abnormal findings. LP performed by Interventional Radiology on 05/14/19. CSF opening pressure 23. LP performed by Radiologist on 05/13/19 failed. Still has not got the report from her vice president lending because she has not provided information to her nurse so far. HISTORY OF THE PRESENT ILLNESS: This is a 48-year-old female patient with history of chronic headaches for more than 15 years. She was diagnosed as having pseudotumor cerebri syndrome in 2014 and was treated with Diamox and Topamax. She was then evaluated by Neurosurgery in [facility] and [facility] for shunt placement but she was not considered a candidate for shunt. She stated she had another LP in [facility] after 2014 but she did not remember the year and she was told by that her CSF pressure was high. She has increased headaches before and this time as well. She stated she has been having persistent headaches for about 2 weeks now as compression type of pain which she rated 10/10 in her right side of head and behind the eye and occipital head as well. She said she visited her vice president lending on 05/11/19 and she was told she had swelling in her right eye. Her visual field exam was said abnormal. No symptoms of decreased vision, diplopia, projectile vomiting, or focalized motor or sensory deficits. She stated on 05/16/19 her headaches were improved. PAST MEDICAL HISTORY: See above. PAST SURGERY HISTORY: Colectomy. SOCIAL HISTORY: Denies illicit drug abuse. REVIEW OF SYSTEMS: Constitutional: No malnutrition, weight loss, night sweats, cachexia. Head: No traumatic brain or head injury. Skin: No edema, or rash. Ear: No infection, tinnitus. Eyes: No vision loss, color blindness. Nose: No bleeding or purulent discharges. Neck: Neck pain. Degenerative c-spine disease. Cardiac: HTN. Pulmonary: No hemoptysis, dyspnea. GI: No melena, hematochezia. Urinary/genital: UTI. Endocrinologic: DM. Obesity. Skeletomuscular: No muscular atrophy, deformity. Neurological: see HP. Psychiatric: Denies drug use/abuse. Otherwise, not [id number] review of systems. PHYSICAL EXAMINATION: General appearance is in subacute distress. HEENT: Normocephalic and nontraumatic. Eyes, nose, ears, and throat are unremarkable. Neck is supple. No lymphadenopathy. No crepitus. Cardiovascular: S1, S2, regular rate and rhythm. Pulmonary: Clear to auscultation bilaterally. Abdomen: Bowel sounds are positive. Abdomen is soft, nontender, and nondistended. Extremities: No rash, lesions, or edema. No restriction of range of motion NEUROLOGICAL EXAMINATION: Alert. Oriented to time, place and person. PERRL. EOMI. CN: no focal findings. Muscle tone: normal. Muscle strength: 5- DTR: 2 at UE, 1 at knee. Plantar reflex: Flexor response bilaterally Gait: Not examined in bed. Sensory exam: no abnormal findings. No cerebellar signs elicited. Objective Objective Vital Signs Date Time Temp Pulse Resp B/P (MAP) Pulse Ox O2 Delivery O2 Flow Rate FiO2 05/16/19 15:00 97.5 79 18 134/80 (98) 100 Room Air 97.5 05/16/19 08:00 96.0 Intake and Output 05/16/19 07:00 Intake Total 720 ml Balance 720 ml Intake Oral 720 ml # Voids 1 Vitals Signs Vitals VS - Last 72 Hours, by Label Date Time Temp Pulse Resp B/P (MAP) Pulse Ox O2 Delivery O2 Flow Rate FiO2 05/16/19 15:00 97.5 79 18 134/80 (98) 100 Room Air 97.5 05/16/19 13:49 97 Room Air 05/16/19 12:28 97 Room Air 05/16/19 11:00 97.6 86 18 151/85 (107) 97 Room Air 97.6 05/16/19 08:00 Room Air 96.0 05/16/19 07:00 97.9 77 18 137/81 (99) 96 Room Air 97.9 05/16/19 06:00 Room Air 05/16/19 03:00 98.3 68 18 120/75 (90) 95 Room Air 96.0 98.3 05/15/19 23:16 Room Air 05/15/19 23:00 97.8 86 18 123/73 (90) 95 Room Air 96.0 97.8 05/15/19 21:05 Room Air 05/15/19 20:35 Room Air 05/15/19 20:05 Room Air 05/15/19 19:00 98.5 82 18 138/81 (100) 95 Room Air 98.5 05/15/19 17:20 2.0 05/15/19 16:06 95 Room Air 05/15/19 15:00 98.4 77 18 124/69 (87) 95 Room Air 98.4 05/15/19 11:00 98.4 79 18 135/81 (99) 94 Room Air 98.4 05/15/19 09:58 Room Air 05/15/19 08:00 Room Air 05/15/19 07:00 98.5 72 18 122/73 (89) 95 Room Air 98.5 Laboratory Laboratory Laboratory Tests Test 05/15/19 20:36 05/16/19 07:05 05/16/19 11:38 05/16/19 16:42 Glucose (Fingerstick) 82 mg/dL (70-99) 85 mg/dL (70-99) 148 mg/dL (70-99) 68 mg/dL (70-99) Microbiology 05/14/19 CSF Gram Stain - Final, Complete Comment Review of Relevant I have reviewed the following items génesis (where applicable) has been applied. ROBERTO ABRAHAM MD May 16, 2019 17:33
[2019-05-16 19:00] VITALS: BP 124/71
[2019-05-16] MEDS: AMITRIPTYLINE HCL 25 MG TABLET. PO SCH (22:14)
[2019-05-16 23:00] VITALS: BP 130/74
[2019-05-17] VITALS (7 sets, daily range): BP systolic 120–163; BP diastolic 72–82
[2019-05-17] MEDS: acetaZOLAMIDE 250 MG TABLET. PO SCH ×5 (00:40→23:50)
[2019-05-17] MEDS: fentaNYL PF VIAL 100 MCG/2 ML VIAL IV PRN (00:46)
[2019-05-17] MEDS: IV NORMAL SALINE 1000ML BAG 1,000 ML IV SCH (05:45)
[2019-05-17] MEDS: LEVOTHYROXINE 25 MCG TABLET. PO SCH (06:28)
[2019-05-17] MEDS: PANTOPRAZOLE 40 MG TABLET.DR. PO SCH (06:28)
[2019-05-17] MEDS: MORPHINE SULFATE 2 MG/ML VIAL. IV PRN ×3 (06:31→20:16)
[2019-05-17] MEDS: diphenhydrAMINE 50 MG/ML VIAL IVP PRN ×2 (06:31→20:16)
[2019-05-17 08:14] LABS: HERPES SIMPLEX TYPE 1 Negative (Negative); HERPES SIMPLEX TYPE 2 Negative (Negative)
--- NOTE | 2019-05-17 08:29 | RAD ---
CLINICAL HISTORY: Bilateral lower extremity swelling. Bilateral lower extremity pain COMPARISON: None available. TECHNIQUE: Ultrasound evaluation of the bilateral lower extremities was performed from the groin to the upper calf with prieto scale, spectral and color doppler evaluation. FINDINGS: The bilateral common femoral vein, and femoral vein, including the saphenous-femoral junction are normal in appearance. Color and spectral Doppler evaluation demonstrates normal spontaneous flow, augmentation and phasicity. The bilateral popliteal vein and visualized calf veins also demonstrate normal compressibility and flow. IMPRESSION: No evidence for bilateral lower extremity DVT Electronically signed by: Eric Nevarez MD (05/17/2019 8:25 AM) [facility]
[2019-05-17] MEDS: TOPIRAMATE 100 MG TABLET. PO SCH ×2 (08:37→20:22)
[2019-05-17] MEDS: buPROPion SR 150 MG TABLET.SA PO SCH ×2 (08:37→20:22)
[2019-05-17] MEDS: metFORMIN 500 MG TABLET PO SCH ×2 (08:37→16:34)
[2019-05-17] MEDS: VENLAFAXINE 75 MG TABLET. PO SCH ×3 (08:37→20:21)
[2019-05-17] MEDS: CELECOXIB 100 MG CAPSULE. PO SCH ×2 (08:38→20:21)
[2019-05-17] MEDS: PREGABALIN 75 MG CAPSULE PO SCH ×2 (08:38→20:22)
[2019-05-17] MEDS: SUMAtriptan SUCCINATE 100 MG TABLET PO PRN ×2 (08:42→16:34)
[2019-05-17] MEDS: KETOROLAC 30 MG/ML VIAL. IV PRN (09:52)
--- NOTE | 2019-05-17 11:00 | NUR ---
SS following up with discharge planning. PT recommended home independent. No discharge needs noted at this time. SS will continue to follow for discharge planning.
--- NOTE | 2019-05-17 11:49 | PDOC ---
PROGRESS NOTES Assessment Intractable migraine headache. Chronic migraine headache. Pseudotumor cerebri syndrome, CSF opening pressure was 28 on 07/28/2015, and 23 on 05/14/19, but prolonged intracranial pressure monitoring in 2011 was normal. 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 Old left parietal lesion as calcification. DM. HTN. HLD. Obesity. Calf pain. Plan Morphine 2mg IV q6h PRN. Increased Imitrex to 50 mg q6h, PRN. Continue Topamax 200 mg bid. Continue Diamox 250 mg q6h (helped her headaches). May taper it off after a few months. Continue Lyrica 75 mg bid. Continue Amitriptyline 50 mg HS. LE US. To obtain eye exam report from her insurance consultant. Will consider referral back to Dr. Gorman or neurosurgery, but with the negative workup in 2011, I doubt that she will be a candidate for shunting unless ophthalmology finds progressive visual field loss Ophthalmology to monitor visual crump Weight reduction. Aim for discharge tomorrow Subjective Still has headache Objective Vital Signs Date Time Temp Pulse Resp B/P (MAP) Pulse Ox O2 Delivery O2 Flow Rate FiO2 05/17/19 09:00 Room Air 05/17/19 07:12 16 05/17/19 07:00 98.4 72 131/82 (98) 92 98.4 05/16/19 08:00 96.0 Intake and Output 05/17/19 06:59 # Voids 3 PHYSICAL EXAM Alert. Oriented to time, place and person. PERRL. EOMI. CN: no focal findings.No papilledema appreciated Muscle tone: normal. Muscle strength: 5/5 DTR: 2+ Plantar reflex: flexor Gait: not examined in bed. Sensory exam: no abnormal findings. No cerebellar signs elicited. Review of Relevant I have reviewed the following items génesis (where applicable) has been applied. Labs Laboratory Tests Test 05/15/19 15:30 05/15/19 20:36 05/16/19 07:05 05/16/19 11:38 Glucose (Fingerstick) 78 mg/dL (70-99) 82 mg/dL (70-99) 85 mg/dL (70-99) 148 mg/dL (70-99) Test 05/16/19 16:42 05/16/19 20:37 05/17/19 07:13 05/17/19 11:13 Glucose (Fingerstick) 68 mg/dL (70-99) 116 mg/dL (70-99) 84 mg/dL (70-99) 79 mg/dL (70-99) Laboratory Tests Test 05/16/19 16:42 05/16/19 20:37 05/17/19 07:13 05/17/19 11:13 Glucose (Fingerstick) 68 mg/dL (70-99) 116 mg/dL (70-99) 84 mg/dL (70-99) 79 mg/dL (70-99) Microbiology 05/14/19 CSF Gram Stain - Final, Complete Medications Current Medications Sodium Chloride 1,000 ml @ 50 mls/hr Q20H IV Last administered on 05/16/19 00:07; Start 05/12/19 at 15:45 Bupropion HCl (Wellbutrin Sr) 150 mg BID PO Last administered on 05/17/19 08:37; Start 05/12/19 at 21:00 Pregabalin (Lyrica) 75 mg BID PO Last administered on 05/17/19 08:38; Start 05/12/19 at 21:00 Amitriptyline HCl (Elavil) 50 mg QHS PO Last administered on 05/16/19 22:14; Start 05/12/19 at 21:00 Celecoxib (CeleBREX) 200 mg BID PO Last administered on 05/17/19 08:38; Start 05/12/19 at 21:00 Diazepam (Valium) 10 mg PRN TID PRN PO ANXIETY Last administered on 05/14/19 13:31; Start 05/12/19 at 16:00 Levothyroxine Sodium (Synthroid) 25 mcg DAILY06 PO Last administered on 05/17/19 06:28; Start 05/13/19 at 06:00 Metformin HCl (Glucophage) 1,000 mg BIDWMEALS PO Last administered on 05/17/19 08:37; Start 05/12/19 at 17:00 Pantoprazole Sodium (Protonix) 40 mg DAILYAC PO Last administered on 05/17/19 06:28; Start 05/13/19 at 07:30 Topiramate (Topamax) 200 mg BID PO Last administered on 05/17/19 08:37; Start 05/12/19 at 21:00 Venlafaxine HCl (Effexor) 75 mg TID PO Last administered on 05/17/19 08:37; Start 05/12/19 at 21:00 Ketorolac Tromethamine (Toradol 30mg Vial) 30 mg PRN Q6HRS PRN IV PAIN Last administered on 05/17/19 09:52; Start 05/12/19 at 17:00; Stop 05/17/19 at 16:59 Fentanyl Citrate (Fentanyl 2ml Vial) 75 mcg PRN Q2HR PRN IV PAIN, 2ND CHOICE Last administered on 05/17/19 00:46; Start 05/12/19 at 17:45 Diphenhydramine HCl (Benadryl) 50 mg PRN Q6HRS PRN IVP ITCHING Last administered on 05/17/19 06:31; Start 05/12/19 at 17:45 Acetazolamide (Diamox) 250 mg Q6HRS PO Last administered on 05/17/19 11:27; Start 05/12/19 at 19:00 Gadoterate Meglumine (Dotarem) 25.2 ml 1X ONCE IVP Last administered on 05/13/19 09:40; Start 05/13/19 at 09:30; Stop 05/13/19 at 09:31; Status DC Morphine Sulfate (Morphine Sulfate) 2 mg PRN Q6HRS PRN IV PAIN, 1ST CHOICE Last administered on 05/17/19 06:31; Start 05/13/19 at 17:30 Sumatriptan Succinate (Imitrex) 50 mg PRN Q8HRS PRN PO MIGRAINE HEADACHE; Start 05/13/19 at 17:30; Stop 05/14/19 at 15:15; Status DC Sumatriptan Succinate (Imitrex) 50 mg PRN Q6HRS PRN PO MIGRAINE HEADACHE Last administered on 05/17/19 08:42; Start 05/14/19 at 15:15 Active Scripts Active Reported Celebrex (Celecoxib) 200 Mg Capsule 200 Mg PO BID 30 Days Levothyroxine Sodium 25 Mcg Tablet 1 Tab PO DAILY Amitriptyline Hcl 50 Mg Tablet 1 Tab PO QHS Omeprazole 40 Mg Capsule.dr 1 Cap PO DAILY Lyrica (Pregabalin) 75 Mg Capsule 1 Cap PO BID Diazepam 10 Mg Tablet 10 Mg PO TID PRN Effexor Xr (Venlafaxine Hcl) 150 Mg Cap.er.24h 225 Mg PO DAILY07 Wellbutrin (Bupropion Hcl) 100 Mg Tablet 150 Mg PO BID Metformin Hcl 1,000 Mg Tablet 1,000 Mg PO BID Topamax (Topiramate) 100 Mg Tablet 200 Mg PO BID Vitals/I & O Vital Sign - Last 24 Hours 05/16/19 05/16/19 05/16/19 05/16/19 12:28 13:49 15:00 19:00 Temp 97.5 98.5 97.5 98.5 Pulse 79 74 Resp 18 18 B/P (MAP) 134/80 (98) 124/71 (88) Pulse Ox 97 97 100 95 O2 Delivery Room Air Room Air Room Air 05/16/19 05/16/19 05/16/19 05/17/19 19:45 19:50 23:00 00:46 Temp 98.3 98.3 Pulse 77 Resp 18 B/P (MAP) 130/74 (92) Pulse Ox 94 O2 Delivery Room Air Room Air Room Air Room Air 05/17/19 05/17/19 05/17/19 05/17/19 01:16 03:00 06:31 07:00 Temp 98.2 98.4 98.2 98.4 Pulse 73 72 Resp 18 18 B/P (MAP) 135/79 (97) 131/82 (98) Pulse Ox 95 92 O2 Delivery Room Air Room Air Room Air Room Air 05/17/19 05/17/19 07:12 09:00 Resp 16 O2 Delivery Room Air Room Air BHARGAVI PEACOCK MD May 17, 2019 11:49
--- NOTE | 2019-05-17 15:57 | PDOC ---
GENERAL General: vss and afebrile. awake and alert but ongoing headache. neurology thinks increa sed csf pressure may contributing to symptoms. exam stable. probable dc in am. VITAL SIGNS/I&O Vital Signs/I&O: Vital Signs Date Time Temp Pulse Resp B/P (MAP) Pulse Ox O2 Delivery O2 Flow Rate FiO2 05/17/19 14:33 Room Air 05/17/19 11:00 97.6 71 18 120/78 (92) 95 97.6 05/16/19 08:00 96.0 ALLERGIES Allergies: Allergies Coded Allergies Type Severity Reaction Last Updated Verified No Known Drug Allergies 11/13/15 No LAB Lab: Laboratory Tests Test 05/16/19 16:42 05/16/19 20:37 05/17/19 07:13 05/17/19 11:13 Glucose (Fingerstick) 68 mg/dL (70-99) L 116 mg/dL (70-99) H 84 mg/dL (70-99) 79 mg/dL (70-99) BATOOL DONOHUE MD May 17, 2019 15:57
[2019-05-17] MEDS: diazePAM 5 MG TABLET PO PRN (18:43)
[2019-05-17] MEDS: AMITRIPTYLINE HCL 25 MG TABLET. PO SCH (20:22)
[2019-05-18] MEDS: IV NORMAL SALINE 1000ML BAG 1,000 ML IV SCH (01:45)
[2019-05-18 03:00] VITALS: BP 128/78
[2019-05-18] MEDS: MORPHINE SULFATE 2 MG/ML VIAL. IV PRN (05:18)
[2019-05-18] MEDS: diphenhydrAMINE 50 MG/ML VIAL IVP PRN (05:18)
[2019-05-18] MEDS: acetaZOLAMIDE 250 MG TABLET. PO SCH (05:19)
[2019-05-18] MEDS: LEVOTHYROXINE 25 MCG TABLET. PO SCH (05:19)
[2019-05-18] MEDS: PANTOPRAZOLE 40 MG TABLET.DR. PO SCH (05:26)
[2019-05-18 07:00] VITALS: BP 122/74
[2019-05-18] MEDS ORDERED: HYDR-3135 PO (07:13)
--- NOTE | 2019-05-18 07:49 | DS ---
DATE OF DISCHARGE: 05/18/2019 PRIMARY DIAGNOSIS: Intractable headache. 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 CHIEF COMPLAINT AND HISTORY OF PRESENT ILLNESS: This 48-year-old white female was admitted after 2 weeks of intractable headache despite outpatient intervention. SUMMARY OF STAY: The patient was admitted. Neurology was consulted. The patient was treated throughout the stay with pain as well as nausea medicine to try to break the headache. She still had some headache at the time of discharge, although it decreased dramatically from admission, was back to her baseline. She is followed by Neurology in addition. She did have a spinal tap during the stay showing an elevated opening pressure of 23. She had 4 years or so ago an elevated pressure of 28. The ongoing thought of the pseudotumor cerebri problem was entertained and Neurology was planning on getting opinions from [facility] experts after discharge. The patient was felt ready for dismissal on the day of discharge. DISPOSITION: The patient is discharged to home. DIET: As tolerated. ACTIVITY: As tolerated. FOLLOWUP: Office in 1 week. DISCHARGE MEDICATIONS: Listed on the med rec and have been addressed. BATOOL DONOHUE MD DR: EMILY/gil JOB#: [id number] / [id number]
[2019-05-18] MEDS: buPROPion SR 150 MG TABLET.SA PO SCH (08:35)
[2019-05-18] MEDS: CELECOXIB 100 MG CAPSULE. PO SCH (08:35)
[2019-05-18] MEDS: PREGABALIN 75 MG CAPSULE PO SCH (08:35)
[2019-05-18] MEDS: metFORMIN 500 MG TABLET PO SCH (08:35)
[2019-05-18] MEDS: TOPIRAMATE 100 MG TABLET. PO SCH (08:35)
[2019-05-18] MEDS: VENLAFAXINE 75 MG TABLET. PO SCH (08:35)
--- NOTE | 2019-05-18 11:38 | NUR ---
Discharge instructions and belongings reviewed with patient, verbalized understanding. Patient was escorted out of hospital via ambulation by Theron BRANNON.
--- NOTE | 2019-05-18 12:06 | PDOC ---
PROGRESS NOTES Assessment Intractable migraine headache. Chronic migraine headache. Pseudotumor cerebri syndrome, CSF opening pressure was 28 on 07/28/2015, and 23 on 05/14/19, but prolonged intracranial pressure monitoring in 2011 was normal. 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 Old left parietal lesion as calcification. DM. HTN. HLD. Obesity. Calf pain, No deep venous thrombosis. Plan Morphine 2mg IV q6h PRN. Increased Imitrex to 50 mg q6h, PRN. Continue Topamax 200 mg bid. Continue Diamox 250 mg q6h (helped her headaches). (I electronically prescribed 500 mg BID) Continue Lyrica 75 mg bid. Continue Amitriptyline 50 mg HS. Did not get eye exam report from her warehouse stock clerk, follow-up with op hthalmologist in 2-4 weeks to monitor visual crump Follow-up with me into-4 weeks. Will consider referral back to Dr. Gorman or neurosurgery, but with the negative workup in 2011, I doubt that she will be a candidate for shunting unless ophthalmology finds progressive visual field loss Weight reduction. Discussed with Dr. Faustin Subjective Headache is 02/03 Objective Vital Signs Date Time Temp Pulse Resp B/P (MAP) Pulse Ox O2 Delivery O2 Flow Rate FiO2 05/18/19 08:05 Room Air 05/18/19 07:00 98.1 67 17 122/74 (90) 98 98.1 05/17/19 20:16 96.0 PHYSICAL EXAM Alert. Oriented to time, place and person. PERRL. EOMI. CN: no focal findings.No papilledema appreciated Muscle tone: normal. Muscle strength: 5/5 DTR: 2+ Plantar reflex: flexor Gait: not examined in bed. Sensory exam: no abnormal findings. No cerebellar signs elicited. Review of Relevant I have reviewed the following items génesis (where applicable) has been applied. Labs Laboratory Tests Test 05/16/19 16:42 05/16/19 20:37 05/17/19 07:13 05/17/19 11:13 Glucose (Fingerstick) 68 mg/dL (70-99) 116 mg/dL (70-99) 84 mg/dL (70-99) 79 mg/dL (70-99) Test 05/17/19 15:16 05/17/19 20:44 05/18/19 07:54 Glucose (Fingerstick) 100 mg/dL (70-99) 100 mg/dL (70-99) 81 mg/dL (70-99) Laboratory Tests Test 05/17/19 15:16 05/17/19 20:44 05/18/19 07:54 Glucose (Fingerstick) 100 mg/dL (70-99) 100 mg/dL (70-99) 81 mg/dL (70-99) Microbiology 05/14/19 CSF Gram Stain - Final, Complete Medications Current Medications Sodium Chloride 1,000 ml @ 50 mls/hr Q20H IV Last administered on 05/16/19at 00:07; Start 05/12/19 at 15:45; Stop 05/18/19 at 11:40; Status DC Bupropion HCl (Wellbutrin Sr) 150 mg BID PO Last administered on 05/18/19at 08:35; Start 05/12/19 at 21:00; Stop 05/18/19 at 11:40; Status DC Pregabalin (Lyrica) 75 mg BID PO Last administered on 05/18/19at 08:35; Start 05/12/19 at 21:00; Stop 05/18/19 at 11:40; Status DC Amitriptyline HCl (Elavil) 50 mg QHS PO Last administered on 05/17/19at 20:22; Start 05/12/19 at 21:00; Stop 05/18/19 at 11:40; Status DC Celecoxib (CeleBREX) 200 mg BID PO Last administered on 05/18/19at 08:35; Start 05/12/19 at 21:00; Stop 05/18/19 at 11:40; Status DC Diazepam (Valium) 10 mg PRN TID PRN PO ANXIETY Last administered on 05/17/19at 18:43; Start 05/12/19 at 16:00; Stop 05/18/19 at 11:40; Status DC Levothyroxine Sodium (Synthroid) 25 mcg DAILY06 PO Last administered on 05/18/19at 05:19; Start 05/13/19 at 06:00; Stop 05/18/19 at 11:40; Status DC Metformin HCl (Glucophage) 1,000 mg BIDWMEALS PO Last administered on 05/18/19at 08:35; Start 05/12/19 at 17:00; Stop 05/18/19 at 11:40; Status DC Pantoprazole Sodium (Protonix) 40 mg DAILYAC PO Last administered on 05/18/19at 05:26; Start 05/13/19 at 07:30; Stop 05/18/19 at 11:40; Status DC Topiramate (Topamax) 200 mg BID PO Last administered on 05/18/19at 08:35; Start 05/12/19 at 21:00; Stop 05/18/19 at 11:40; Status DC Venlafaxine HCl (Effexor) 75 mg TID PO Last administered on 05/18/19at 08:35; Start 05/12/19 at 21:00; Stop 05/18/19 at 11:40; Status DC Ketorolac Tromethamine (Toradol 30mg Vial) 30 mg PRN Q6HRS PRN IV PAIN Last administered on 05/17/19at 09:52; Start 05/12/19 at 17:00; Stop 05/17/19 at 16:59; Status DC Fentanyl Citrate (Fentanyl 2ml Vial) 75 mcg PRN Q2HR PRN IV PAIN, 2ND CHOICE Last administered on 05/17/19at 00:46; Start 05/12/19 at 17:45; Stop 05/18/19 at 11:40; Status DC Diphenhydramine HCl (Benadryl) 50 mg PRN Q6HRS PRN IVP ITCHING Last administered on 05/18/19 05:18; Start 05/12/19 at 17:45; Stop 05/18/19 at 11:40; Status DC Acetazolamide (Diamox) 250 mg Q6HRS PO Last administered on 05/18/19 05:19; Start 05/12/19 at 19:00; Stop 05/18/19 at 11:40; Status DC Gadoterate Meglumine (Dotarem) 25.2 ml 1X ONCE IVP Last administered on 05/13/19at 09:40; Start 05/13/19 at 09:30; Stop 05/13/19 at 09:31; Status DC Morphine Sulfate (Morphine Sulfate) 2 mg PRN Q6HRS PRN IV PAIN, 1ST CHOICE Last administered on 05/18/19at 05:18; Start 05/13/19 at 17:30; Stop 05/18/19 at 11:40; Status DC Sumatriptan Succinate (Imitrex) 50 mg PRN Q8HRS PRN PO MIGRAINE HEADACHE; Start 05/13/19 at 17:30; Stop 05/14/19 at 15:15; Status DC Sumatriptan Succinate (Imitrex) 50 mg PRN Q6HRS PRN PO MIGRAINE HEADACHE Last administered on 05/17/19at 16:34; Start 05/14/19 at 15:15; Stop 05/18/19 at 11:40; Status DC Active Scripts Active [place] 10-325 Tablet (Acetaminophen/Hydrocodone Bitart) 1 Each Tablet 1 Tab PO QID Reported Celebrex (Celecoxib) 200 Mg Capsule 200 Mg PO BID 30 Days Levothyroxine Sodium 25 Mcg Tablet 1 Tab PO DAILY Amitriptyline Hcl 50 Mg Tablet 1 Tab PO QHS Omeprazole 40 Mg Capsule.dr 1 Cap PO DAILY Lyrica (Pregabalin) 75 Mg Capsule 1 Cap PO BID Effexor Xr (Venlafaxine Hcl) 150 Mg Cap.er.24h 225 Mg PO DAILY07 Wellbutrin (Bupropion Hcl) 100 Mg Tablet 150 Mg PO BID Metformin Hcl 1,000 Mg Tablet 1,000 Mg PO BID Topamax (Topiramate) 100 Mg Tablet 200 Mg PO BID Vitals/I & O Vital Sign - Last 24 Hours 05/17/19 05/17/19 05/17/19 05/17/19 14:03 15:00 19:00 19:50 Temp 98.8 97.9 98.8 97.9 Pulse 83 83 Resp 18 18 B/P (MAP) 140/73 (95) 143/72 (95) Pulse Ox 97 96 O2 Delivery Room Air Room Air Room Air Room Air 05/17/19 05/17/19 05/17/19 05/18/19 20:16 21:17 23:00 03:00 Temp 97.9 97.9 97.7 97.9 97.9 97.7 Pulse 83 80 78 Resp 18 18 18 B/P (MAP) 143/72 (95) 163/82 (109) 128/78 (95) Pulse Ox 97 96 93 94 O2 Delivery Room Air Room Air Room Air Room Air O2 Flow Rate 96.0 05/18/19 05/18/19 05/18/19 05/18/19 05:18 05:49 07:00 08:05 Temp 98.1 98.1 Pulse 67 Resp 17 B/P (MAP) 122/74 (90) Pulse Ox 98 O2 Delivery Room Air Room Air Room Air Room Air BHARGAVI PEACOCK MD May 18, 2019 12:06
[2019-05-24 10:12] LABS: VIRAL CULT FINAL No virus isolated. (.)
== END 2019-05-18 11:40 | disposition home or self-care (01) | DRG 103 ==
LOC: 4 NORTH 14:48
PROVIDERS: ADMIT Family Medicine; ATTEND Family Medicine
PROC: 00JU3ZZ Inspection of Spinal Canal, Percutaneous Approach (ICD-10-PCS; principal; 2019-05-13)
PROC: 009U3ZX Drainage of Spinal Canal, Percutaneous Approach, Diagnostic (ICD-10-PCS; 2019-05-14)
PROC: B01B1ZZ Fluoroscopy of Spinal Cord using Low Osmolar Contrast (ICD-10-PCS; 2019-05-14)
DX: G93.2 Benign intracranial hypertension (principal); Z68.41 Body mass index [BMI] 40.0-44.9, adult; G43.919 Migraine, unspecified, intractable, without status migrainosus; I10 Essential (primary) hypertension; E11.9 Type 2 diabetes mellitus without complications; E66.9 Obesity, unspecified; M79.669 Pain in unspecified lower leg; E78.5 Hyperlipidemia, unspecified; Z79.899 Other long term (current) drug therapy; Z86.73 Personal history of transient ischemic attack (TIA), and cerebral infarction without residual deficits; Z90.49 Acquired absence of other specified parts of digestive tract; Z79.84 Long term (current) use of oral hypoglycemic drugs
CPT/HCPCS: 36415; 62270; 70553; 72131; 80053; 80307; 81001; 82945; 82962; 84157; 84443; 85025; 85610; 85651; 87071; 87075; 87252; 87529; 89051; 93970; A9575; J1200; J1885; J2270; J3010; J7030

== ENCOUNTER 2019-11-23 20:25 | Inpatient (IN) | payer BC ==
[~2019-11-23] VITALS: Ht 170.2 cm; Wt 112.5 kg
[~2019-11-23 20:25] MED LIST changes: +HYDR-3135 PO; +LISI1TAB19 PO; -LISI1TAB5 PO; +OMEP40CA45 PO; -OMEP40CA5 PO; -TIZA4TAB PO; +TIZA4TAB2 PO
[2019-11-23 20:50] VITALS: BP 97/58
[2019-11-23] MEDS ORDERED: PRAM0.255 PO (21:01)
[2019-11-23] MEDS ORDERED: IRBE300T23 PO (21:01)
[2019-11-23] MEDS ORDERED: DICL75TA PO (21:01)
[2019-11-23] MEDS ORDERED: BUSP5TAB PO (21:01)
[2019-11-23] MEDS ORDERED: HYDR25TA PO (21:01)
[2019-11-23] MEDS ORDERED: busPIRone 5 MG TABLET. PO PRN (21:15)
[2019-11-23] MEDS: IV NORMAL SALINE 1000ML BAG 1,000 ML IV SCH (21:15)
[2019-11-23] MEDS: TOPIRAMATE 100 MG TABLET. PO SCH (21:30)
[2019-11-23] MEDS: hydrOXYzine 25 MG TABLET PO SCH (21:30)
[2019-11-23] MEDS: PREGABALIN 75 MG CAPSULE PO SCH (21:30)
[2019-11-23] MEDS: PRAMIPEXOLE 0.25 MG TABLET. PO SCH (21:30)
[2019-11-23] MEDS: AMITRIPTYLINE HCL 25 MG TABLET. PO SCH (21:30)
[2019-11-23] MEDS: DICLOFENAC SODIUM 25 MG TABLET.DR PO SCH (21:30)
[2019-11-23] MEDS: buPROPion 100 MG TABLET PO SCH (21:30)
[2019-11-23 22:37] LABS: BASO % 1 % (0-3); EOS # 0.1 x10^3/uL (0.0-0.7); EOS % 1 % (0-3); HEMATOCRIT 34.2 % (36.0-47.0); HEMOGLOBIN 11.3 g/dL (12.0-15.5); LYMPH # 3.3 x10^3/uL (1.0-4.8); LYMPH % 34 % (24-48); MEAN CORPUSCULAR HEMOGLOBIN 28 pg (25-35); MEAN CORPUSCULAR HGB CONC 33 g/dL (31-37); MEAN CORPUSCULAR VOLUME 85 fL (79-100); MONO # 0.6 x10^3/uL (0.0-1.1); MONO % 7 % (0-9); NEUT # 5.5 x10^3/uL (1.8-7.7); NEUT % 57 % (31-73); PLATELET COUNT 331 x10^3/uL (140-400); RED BLOOD COUNT 4.04 x10^6/uL (3.50-5.40); RED CELL DISTRIBUTION WIDTH 15.5 % (11.5-14.5); WHITE BLOOD COUNT 9.6 x10^3/uL (4.0-11.0)
[2019-11-23] MEDS: HYDROcodone/APAP 10/325 1 TAB TABLET PO SCH (22:46)
[2019-11-23 22:51] LABS: ALBUMIN 3.1 g/dL (3.4-5.0); ALBUMIN/GLOBULIN RATIO 0.9 (1.0-1.7); CALCIUM 9.1 mg/dL (8.5-10.1); CREATININE 0.7 mg/dL (0.6-1.0); GFR 89.3; TOTAL BILIRUBIN 0.2 mg/dL (0.2-1.0); TOTAL PROTEIN 6.4 g/dL (6.4-8.2)
[2019-11-23 23:29] VITALS: BP 116/62
[2019-11-23] MEDS ORDERED: SUMAtriptan SUCCINATE 25 MG TABLET PO PRN (23:30)
[2019-11-24] MEDS: acetaZOLAMIDE 250 MG TABLET. PO SCH ×5 (00:41→23:52)
[2019-11-24] MEDS: MORPHINE SULFATE 2 MG/ML VIAL. IV PRN ×3 (00:42→12:23)
[2019-11-24 03:25] VITALS: BP 108/59
[2019-11-24] MEDS: LEVOTHYROXINE 25 MCG TABLET. PO SCH (05:50)
[2019-11-24 07:00] VITALS: BP 125/65
[2019-11-24 08:43] LABS: PROTHROMBIN TIME PATIENT 12.6 SEC (11.7-14.0)
[2019-11-24] MEDS: VENLAFAXINE XR 37.5 MG CAP.ER.24H. PO SCH (08:55)
[2019-11-24] MEDS: buPROPion 100 MG TABLET PO SCH (08:55)
[2019-11-24] MEDS: hydrOXYzine 25 MG TABLET PO SCH ×3 (08:56→20:14)
[2019-11-24] MEDS: PANTOPRAZOLE 40 MG TABLET.DR. PO SCH (08:56)
[2019-11-24] MEDS: DICLOFENAC SODIUM 25 MG TABLET.DR PO SCH ×2 (08:56→20:13)
[2019-11-24] MEDS: PREGABALIN 75 MG CAPSULE PO SCH ×2 (08:56→20:14)
[2019-11-24] MEDS: metFORMIN 500 MG TABLET PO SCH ×2 (08:56→16:30)
[2019-11-24] MEDS: LOSARTAN POTASSIUM 50 MG TABLET. PO SCH (08:56)
[2019-11-24] MEDS: HYDROcodone/APAP 10/325 1 TAB TABLET PO SCH ×4 (08:57→20:14)
[2019-11-24] MEDS: TOPIRAMATE 100 MG TABLET. PO SCH ×2 (08:57→20:15)
[2019-11-24] MEDS: IV NORMAL SALINE 1000ML BAG 1,000 ML IV SCH ×2 (09:05→17:11)
[2019-11-24 11:00] VITALS: BP 130/76
[2019-11-24] MEDS: KETOROLAC 30 MG/ML VIAL. IVP PRN ×2 (11:01→16:30)
[2019-11-24] MEDS: diphenhydrAMINE 50 MG/ML VIAL IVP PRN ×2 (12:23→20:08)
--- NOTE | 2019-11-24 13:51 | NUR ---
SW following. Discussed with RN, pt is from home with , room air. RN advised no SW needs at this time. SW will continue to follow should any discharge needs arise.
--- NOTE | 2019-11-24 14:13 | RAD ---
CT of the lumbar spine degenerative 2019 compared to similar exam dated May 14, 2019 for changes from last exam, history of failed lumbar puncture, DVT, hiatal hernia, brain tumor. Known degenerative disc disease. TECHNIQUE: Contiguous helical 3 mm axial images are obtained through the lumbar spine. Sagittal and coronal reformations are evaluated. FINDINGS: There is mild straightening of the normal lumbar lordosis. There is mild degenerative disc disease at L3-4 and L5-S1, with vacuum phenomena present at both levels. The vacuum phenomenon is new. The disc space narrowing L5-S1 appears to be subtly worse today as well. There is no bony central canal stenosis at any level. No significant bony neuroforaminal narrowing is present. No osteoblastic grossly bone lesions are seen. There is a fusiform disc bulge at at L2-3, L3-4, and L4-5. This likely results in mild foraminal narrowing at L4-5, which is stable. There is mild bilateral facet arthrosis of the lower lumbar levels, also stable. Mild degenerative disc disease is seen at T11-12 as well, with bulky anterior osteophyte. There is aortoiliac atherosclerosis. Left adrenal nodular thickening without a discrete mass is stable. IMPRESSION: 1. No fracture or acute osseous or alignment abnormality of the lumbar spine. 2. Multilevel degenerative disc disease particularly involving T11-12, L3-4, and L5-S1. There is new vacuum phenomenon at L3-4 and L5-S1, and there is subtly worsening disc space narrowing at L5-S1. 3. Stable nodular thickening of the left adrenal gland. 4. Aortoiliac atherosclerosis. PQRS Compliance Statement: One or more of the following individualized dose reduction techniques were utilized for this examination: 1. Automated exposure control 2. Adjustment of the mA and/or kV according to patient size 3. Use of iterative reconstruction technique Electronically signed by: Walter Scott MD (11/24/2019 2:10 PM) [facility]
[2019-11-24 15:00] VITALS: BP 118/57
[2019-11-24] MEDS: fentaNYL PF VIAL 100 MCG/2 ML VIAL IVP PRN ×2 (17:24→20:17)
--- NOTE | 2019-11-24 19:26 | HP ---
ADMIT DATE: 11/23/2019 CHIEF COMPLAINT AND HISTORY OF PRESENT ILLNESS: This 49-year-old white female is well known to me from followup in the office. The patient is admitted at this point in time with intractable migraine headache with inability to get any sort of relief at home. She has been suffering with this for the last 1-2 weeks, it has gotten to the point where she is unable to get out of the house, drive, move, etc. PAST MEDICAL HISTORY: Remarkable for chronic migraine headaches. She has a history of increased intracranial pressure with pseudotumor cerebri. 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 She has a history of hyperlipidemia, hypertension, and diabetes. MEDICATIONS: Brought with the patient, listed on the computer and have been addressed. ALLERGIES: She has no known drug allergies. SOCIAL HISTORY: She is nonsmoker, nondrinker, does not abuse drugs. , lives at home with her . FAMILY HISTORY: Noncontributory. REVIEW OF SYSTEMS: Remarkable for the severe headache. She does have photophobia, phonophobia, nausea with the same. She denies any acute neurological changes with the same. Rest of review of systems is negative. PHYSICAL EXAMINATION: GENERAL: She is well-developed, well-nourished white female, appears uncomfortable. VITAL SIGNS: Stable. She is afebrile. HEAD, EYES, EARS, NOSE AND THROAT: Unremarkable. NECK: Supple, without adenopathy or thyromegaly. CHEST: Clear to auscultation and percussion. HEART: Regular rate and rhythm without S3, S4. ABDOMEN: Soft, nontender, without hepatosplenomegaly or masses. EXTREMITIES: Without cyanosis, clubbing, edema. NEUROLOGIC: She is intact. IMPRESSION: 1. Intractable headache with failed outpatient treatment. 2. Other problems listed above. PLAN: The patient has been admitted. She will be hydrated. We will resume her normal in-hospital routine for an intractable headache, which she has done several times, last time being in April of last year. The patient will be monitored, managed, and treated appropriately. BATOOL DONOHUE MD DR: EMILY/gil JOB#: [id number] / [id number]
[2019-11-24 19:47] VITALS: BP 109/76
[2019-11-24] MEDS: buPROPion 75 MG TABLET. PO SCH (20:14)
[2019-11-24] MEDS: AMITRIPTYLINE HCL 25 MG TABLET. PO SCH (20:14)
[2019-11-24] MEDS: PRAMIPEXOLE 0.25 MG TABLET. PO SCH (20:14)
[2019-11-24 23:32] VITALS: BP 101/56
[2019-11-25] MEDS: IV NORMAL SALINE 1000ML BAG 1,000 ML IV SCH ×3 (01:00→23:15)
[2019-11-25 03:51] VITALS: BP 97/61
[2019-11-25] MEDS: fentaNYL PF VIAL 100 MCG/2 ML VIAL IVP PRN ×7 (04:20→23:20)
[2019-11-25] MEDS: LEVOTHYROXINE 25 MCG TABLET. PO SCH (06:26)
[2019-11-25] MEDS: VENLAFAXINE XR 37.5 MG CAP.ER.24H. PO SCH (06:26)
[2019-11-25] MEDS: PANTOPRAZOLE 40 MG TABLET.DR. PO SCH (06:26)
[2019-11-25] MEDS: acetaZOLAMIDE 250 MG TABLET. PO SCH ×3 (06:26→16:58)
[2019-11-25] MEDS: KETOROLAC 30 MG/ML VIAL. IVP PRN ×3 (06:31→23:00)
[2019-11-25 07:00] VITALS: BP 111/73
[2019-11-25] MEDS: TOPIRAMATE 100 MG TABLET. PO SCH ×2 (08:47→19:54)
[2019-11-25] MEDS: DICLOFENAC SODIUM 25 MG TABLET.DR PO SCH ×2 (08:47→19:54)
[2019-11-25] MEDS: LOSARTAN POTASSIUM 50 MG TABLET. PO SCH (08:48)
[2019-11-25] MEDS: buPROPion 75 MG TABLET. PO SCH ×2 (08:48→19:54)
[2019-11-25] MEDS: metFORMIN 500 MG TABLET PO SCH ×2 (08:49→16:58)
[2019-11-25] MEDS: HYDROcodone/APAP 10/325 1 TAB TABLET PO SCH ×4 (08:50→19:53)
[2019-11-25] MEDS: PREGABALIN 75 MG CAPSULE PO SCH ×2 (08:50→19:53)
[2019-11-25] MEDS: hydrOXYzine 25 MG TABLET PO SCH ×3 (08:50→19:54)
--- NOTE | 2019-11-25 10:20 | NUR ---
SW following. Discussed with RN, pt from home. RN advised no SW needs, anticipates possible discharge home with self care tomorrow (11/26/2019). SW will continue to follow.
--- NOTE | 2019-11-25 10:50 | RAD ---
EXAM: 1. KNEE STANDING BILAT AP, 2. KNEE BILAT 2V. HISTORY: Bilateral knee pain. COMPARISON: None. FINDINGS: There are tiny osteophytes along all 3 compartments bilaterally. The joint spaces and alignment of both knees are maintained. There is no joint effusion bilaterally. IMPRESSION: 1. Mild bilateral tricompartmental osteoarthritis with preservation of joint spaces. Electronically signed by: Radha Renteria MD (11/25/2019 10:47 AM) [facility]
--- NOTE | 2019-11-25 10:50 | RAD ---
EXAM: 1. KNEE STANDING BILAT AP, 2. KNEE BILAT 2V. HISTORY: Bilateral knee pain. COMPARISON: None. FINDINGS: There are tiny osteophytes along all 3 compartments bilaterally. The joint spaces and alignment of both knees are maintained. There is no joint effusion bilaterally. IMPRESSION: 1. Mild bilateral tricompartmental osteoarthritis with preservation of joint spaces. Electronically signed by: Radha Renteria MD (11/25/2019 10:47 AM) [facility]
[2019-11-25 11:00] VITALS: BP 98/62
[2019-11-25] MEDS: diphenhydrAMINE 50 MG/ML VIAL IVP PRN ×2 (12:45→20:08)
--- NOTE | 2019-11-25 15:31 | PDOC ---
GENERAL General: vss and afebrile. awake and alert. able to sleep for 3 hours last night which a first in over a week. headache not as severe this am. complains right lateral knee pain ongoing for some time and will ask ortho to look at same. chest clear, heart regular, abdomen benign, neuro non focal. will continue same with possible dc tomorrow. VITAL SIGNS/I&O Vital Signs/I&O: Vital Signs Date Time Temp Pulse Resp B/P (MAP) Pulse Ox O2 Delivery O2 Flow Rate FiO2 11/25/19 14:01 16 Room Air 11/25/19 12:40 95 11/25/19 11:00 98.0 63 98/62 (74) 98.0 ALLERGIES Allergies: Allergies Coded Allergies Type Severity Reaction Last Updated Verified No Known Drug Allergies 11/13/15 No MEDS Medications: Current Medications Medications (Trade) Dose Ordered Sig/Arturo Route PRN Reason Start Time Stop Time Status Last Admin Dose Admin Bupropion HCl (Wellbutrin) 150 mg BID PO 11/24/19 21:00 11/25/19 08:48 BATOOL DONOHUE MD Nov 25, 2019 15:31
[2019-11-25] MEDS ORDERED: LIDOCAINE 1% PF 5 ML VIAL. ONE (18:30)
[2019-11-25] MEDS ORDERED: methylPREDNISolone ACETATE 80 MG/ML VIAL. INT ART ONE (18:30)
[2019-11-25] MEDS ORDERED: LIDOCAINE 1% PF 5 ML VIAL. INJ ONE (18:30)
[2019-11-25] MEDS ORDERED: methylPREDNISolone ACETATE 80 MG/ML VIAL. ONE (18:30)
--- NOTE | 2019-11-25 18:40 | PDOC2 ---
GIOVANI ROUSSEAU Shakir [facility] 11/25/19 1840: CONSULT Date of Consult Date of Consult DATE: 11/25/19 TIME: 18:22 Reason for Consult Reason for Consult: RIGHT lateral knee pain. Referring Physician Referring Physician: Sam Faustin MD Identification/Chief Complaint Chief Complaint RIGHT knee anterolateral pain, grating, stiffness watermaster worsening. Problems: (1) Osteoarthritis of right knee Source Source: Chart review, Patient History of Present Illness Reason for Visit: Patient is admitted for chronic RASHEED, intracranial pressure per pt and complains of chronic RIGHT knee pain anterolateral worse lying on lateral side, lindsay, stiff when sitting, Feels grating symptoms in both knees only symptomatic with pain on Right. Denies locking or instability. Past Medical History Cardiovascular: CHF, HTN, Hyperlipidemia, Other Pulmonary: Bronchitis, Pneumonia CENTRAL NERVOUS SYSTEM: CVA, Migraine GI: GERD, Peptic Ulcer disease Hepatobiliary: Cholelithiasis Psych: Anxiety, Depression Musculoskeletal: low back pain, Stiffness (RIGHT > Left knees) Infectious disease: No pertinent hx, Other Endocrine: Diabetes Past Surgical History Past Surgical History: , Other Family History Family History: Cancer, Coronary Artery Disease Social History No ALCOHOL: occassional Drugs: None Lives: with Family Domestic Violence: Neg Current Problem List Problem List Chronic RASHEED Low back pain RIGHT knee pain and stiffness. Current Medications Current Medications Current Medications Sodium Chloride 1,000 ml @ 100 mls/hr Q10H IV Last administered on 11/24/19at 09:05; Start 11/23/19 at 21:15 Bupropion HCl (Wellbutrin) 150 mg BID PO Last administered on 11/24/19at 08:55; Start 11/23/19 at 21:30; Stop 11/24/19 at 17:43; Status DC Buspirone HCl (Buspar) 5 mg PRN TID PRN PO ANXIETY; Start 11/23/19 at 21:15 Acetaminophen/ Hydrocodone Bitart (Lortab 10/325) 1 tab QID PO Last administered on 11/25/19at 16:58; Start 11/23/19 at 21:30 Hydroxyzine HCl (Atarax) 25 mg TID PO Last administered on 11/25/19at 14:28; Start 11/23/19 at 21:30 Levothyroxine Sodium (Synthroid) 25 mcg DAILY06 PO Last administered on 1/30/20at 06:26; Start 11/24/19 at 06:00 Pramipexole Dihydrochloride (miraPEX) 0.25 mg QHS PO Last administered on 10/28 20:14; Start 11/23/19 at 21:30 Pregabalin (Lyrica) 75 mg BID PO Last administered on 11/25/19 08:50; Start 11/23/19 at 21:30 Topiramate (Topamax) 200 mg BID PO Last administered on 11/25/19 08:47; Start 11/23/19 at 21:30 Amitriptyline HCl (Elavil) 50 mg QHS PO Last administered on 11/24/19 20:14; Start 11/23/19 at 21:30 Diclofenac Sodium (Voltaren) 75 mg BID PO Last administered on 11/25/19 08:47; Start 11/23/19 at 21:30 Losartan Potassium (Cozaar) 50 mg DAILY PO Last administered on 11/25/19 08:48; Start 11/24/19 at 09:00 Metformin HCl (Glucophage) 1,000 mg BIDWMEALS PO Last administered on 11/25/19 16:58; Start 11/24/19 at 08:00 Pantoprazole Sodium (Protonix) 40 mg DAILYAC PO Last administered on 11/25/19 06:26; Start 11/24/19 at 07:30 Venlafaxine HCl (Effexor Xr) 225 mg DAILY07 PO Last administered on 11/25/19 06:26; Start 11/24/19 at 07:00 Sumatriptan Succinate (Imitrex) 50 mg PRN Q8HRS PRN PO MIGRAINE HEADACHE Last administered on 11/24/19 05:51; Start 11/23/19 at 23:30 Morphine Sulfate (Morphine Sulfate) 2 mg PRN Q6HRS PRN IV PAIN Last administered on 11/24/19 12:23; Start 11/23/19 at 23:30; Stop 11/24/19 at 14:44; Status DC Acetazolamide (Diamox) 250 mg Q6HRS PO Last administered on 11/25/19 16:58; Start 11/24/19 at 00:00 Ketorolac Tromethamine (Toradol 30mg Vial) 30 mg PRN Q6HRS PRN IVP PAIN Last administered on 11/25/19at 15:41; Start 11/24/19 at 10:15; Stop 11/29/19 at 10:14 Diphenhydramine HCl (Benadryl) 50 mg PRN Q6HRS PRN IVP ITCHING Last administered on 11/25/19at 12:45; Start 11/24/19 at 10:15 Fentanyl Citrate (Fentanyl 2ml Vial) 75 mcg PRN Q2HR PRN IVP headache Last administered on 11/25/19at 17:37; Start 11/24/19 at 14:45 Bupropion HCl (Wellbutrin) 150 mg BID PO Last administered on 11/25/19at 08:48; Start 11/24/19 at 21:00 Lidocaine HCl (Xylocaine-Mpf 1% 5ml Vial) 5 ml 1X ONCE INJ ; Start 11/25/19 at 18:30; Stop 11/25/19 at 18:31; Status UNV Methylprednisolone Acetate (DEPO-Medrol 80MG VIAL) 80 mg 1X ONCE INT ART ; Start 11/25/19 at 18:30; Stop 11/25/19 at 18:31; Status UNV Active Scripts Active [place] 10-325 Tablet (Acetaminophen/Hydrocodone Bitart) 1 Each Tablet 1 Tab PO QID Reported Hydroxyzine Hcl 25 Mg Tablet 1 Tab PO TID Mirapex (Pramipexole Di-Hcl) 0.25 Mg Tablet 1 Tab PO QHS Buspirone Hcl 5 Mg Tablet 5 Mg PO TID PRN Diclofenac Sodium 75 Mg Tablet.dr 75 Mg PO BID Irbesartan 300 Mg Tablet 150 Mg PO DAILY Celebrex (Celecoxib) 200 Mg Capsule 200 Mg PO BID 30 Days Levothyroxine Sodium 25 Mcg Tablet 1 Tab PO DAILY Amitriptyline Hcl 50 Mg Tablet 1 Tab PO QHS Omeprazole 40 Mg Capsule.dr 1 Cap PO DAILY Lyrica (Pregabalin) 75 Mg Capsule 1 Cap PO BID Effexor Xr (Venlafaxine Hcl) 150 Mg Cap.er.24h 225 Mg PO DAILY07 Wellbutrin (Bupropion Hcl) 100 Mg Tablet 150 Mg PO BID Metformin Hcl 1,000 Mg Tablet 1,000 Mg PO BID Topamax (Topiramate) 100 Mg Tablet 200 Mg PO BID Allergies Allergies: Coded Allergies: No Known Drug Allergies (Unverified , 11/13/15) ROS Musculoskeletal: Yes Joint Stiffness (RIGHT > Left knees), Yes Joint Swelling (Right knee) Physical Exam General: Alert, Oriented X3, Cooperative, No acute distress HEENT: Atraumatic, Mucous membr. moist/pink Neuro: Strength at 5/5 X4 ext, Normal tone, Sensation intact Psych/Mental Status: Mental status NL, Mood NL MUSCULOSKELETAL: Abnormal exam of both (RIGHT > Left knee patella femoral crepitus, tender in lateral patellar facet right knee. No J sign, no instabil ity. Neg McMurrays, Neg Lachmans, normal ROM, extensor mechanisma and collateral ligaments intact.) Vitals VITALS Vital Signs Date Time Temp Pulse Resp B/P (MAP) Pulse Ox O2 Delivery O2 Flow Rate FiO2 11/25/19 18:06 16 Room Air 11/25/19 12:40 95 11/25/19 11:00 98.0 63 98/62 (74) 98.0 Labs Labs Laboratory Tests Test 11/23/19 22:15 11/24/19 08:12 White Blood Count 9.6 x10^3/uL (4.0-11.0) Red Blood Count 4.04 x10^6/uL (3.50-5.40) Hemoglobin 11.3 g/dL (12.0-15.5) Hematocrit 34.2 % (36.0-47.0) Mean Corpuscular Volume 85 fL (79-100) Mean Corpuscular Hemoglobin 28 pg (25-35) Mean Corpuscular Hemoglobin Concent 33 g/dL (31-37) Red Cell Distribution Width 15.5 % (11.5-14.5) Platelet Count 331 x10^3/uL (140-400) Neutrophils (%) (Auto) 57 % (31-73) Lymphocytes (%) (Auto) 34 % (24-48) Monocytes (%) (Auto) 7 % (0-9) Eosinophils (%) (Auto) 1 % (0-3) Basophils (%) (Auto) 1 % (0-3) Neutrophils # (Auto) 5.5 x10^3/uL (1.8-7.7) Lymphocytes # (Auto) 3.3 x10^3/uL (1.0-4.8) Monocytes # (Auto) 0.6 x10^3/uL (0.0-1.1) Eosinophils # (Auto) 0.1 x10^3/uL (0.0-0.7) Basophils # (Auto) 0.0 x10^3/uL (0.0-0.2) Erythrocyte Sedimentation Rate 15 (0-25) Sodium Level 143 mmol/L (136-145) Potassium Level 4.0 mmol/L (3.5-5.1) Chloride Level 107 mmol/L (98-107) Carbon Dioxide Level 27 mmol/L (21-32) Anion Gap 9 (6-14) Blood Urea Nitrogen 15 mg/dL (7-20) Creatinine 0.7 mg/dL (0.6-1.0) Estimated GFR (Cockcroft-Gault) 89.3 BUN/Creatinine Ratio 21 (6-20) Glucose Level 53 mg/dL (70-99) Calcium Level 9.1 mg/dL (8.5-10.1) Total Bilirubin 0.2 mg/dL (0.2-1.0) Aspartate Amino Transf (AST/SGOT) 11 U/L (15-37) Alanine Aminotransferase (ALT/SGPT) 16 U/L (14-59) Alkaline Phosphatase 84 U/L (46-116) Total Protein 6.4 g/dL (6.4-8.2) Albumin 3.1 g/dL (3.4-5.0) Albumin/Globulin Ratio 0.9 (1.0-1.7) Prothrombin Time 12.6 SEC (11.7-14.0) Prothromb Time International Ratio 1.0 (0.8-1.1) Images Images Bilateral knee x-rays show mild flattening of the MFCs but good retention of j oint space both knees. Moderate patella femoral compartment DJD with osteophytes most prominent at inferior retropatellar pole. Assessment/Plan Assessment/Plan Discussed treatment options of NSAIDs, PT, vs injections of steroid vs viscosupplementation, the latter which can only be done in clinic. Since Diclofenac taken previously for her other symptoms provided no relief and she is currently in pain, she elects to undergo a intraarticular injection of Depo Medrol 80 mg + 5 cc lidocaine 1% which is performed after preparation with alcohol pad per Dr Vazquez's preferred technique without complications. Bandaged. Patient had relief after several minutes. Consent obtained and signed prior to procedure after patient is identified by full name and date of . Patient will follow in clinic by scheduling appt as necessary for ongoing treatment in 4-6 weeks. Discussed possibility of Voltaren gel topically if insurance will approve and her primary care doctor is on board. MANN VAZQUEZ II, MD 11/26/19 1256: CONSULT Assessment/Plan Assessment/Plan Patient was seen and examined by myself. I reviewed the history, physical exam and imaging. I formulated the treatment plan. She'll follow-up in orthopedics in 4-6 weeks GIOVANI ROUSSEAU Jr. [facility] Nov 25, 2019 18:40 MANN VAZQUEZ II, MD Nov 26, 2019 12:56
[2019-11-25 19:00] VITALS: BP 118/61
[2019-11-25] MEDS: AMITRIPTYLINE HCL 25 MG TABLET. PO SCH (19:54)
[2019-11-25] MEDS: PRAMIPEXOLE 0.25 MG TABLET. PO SCH (19:54)
[2019-11-25 23:58] VITALS: BP 100/58
[2019-11-26] MEDS: fentaNYL PF VIAL 100 MCG/2 ML VIAL IVP PRN ×4 (03:19→17:25)
[2019-11-26] MEDS: diphenhydrAMINE 50 MG/ML VIAL IVP PRN (03:19)
[2019-11-26 03:22] VITALS: BP 107/62
[2019-11-26] MEDS: KETOROLAC 30 MG/ML VIAL. IVP PRN (05:33)
[2019-11-26] MEDS: LEVOTHYROXINE 25 MCG TABLET. PO SCH (05:33)
[2019-11-26] MEDS: PANTOPRAZOLE 40 MG TABLET.DR. PO SCH (05:33)
[2019-11-26] MEDS: acetaZOLAMIDE 250 MG TABLET. PO SCH ×4 (05:38→17:24)
[2019-11-26] MEDS: VENLAFAXINE XR 37.5 MG CAP.ER.24H. PO SCH (05:41)
[2019-11-26 07:49] VITALS: BP 107/63
[2019-11-26] MEDS: buPROPion 75 MG TABLET. PO SCH (08:56)
[2019-11-26] MEDS: hydrOXYzine 25 MG TABLET PO SCH ×2 (08:57→14:24)
[2019-11-26] MEDS: LOSARTAN POTASSIUM 50 MG TABLET. PO SCH (08:57)
[2019-11-26] MEDS: TOPIRAMATE 100 MG TABLET. PO SCH (08:57)
[2019-11-26] MEDS: PREGABALIN 75 MG CAPSULE PO SCH (08:57)
[2019-11-26] MEDS: HYDROcodone/APAP 10/325 1 TAB TABLET PO SCH ×3 (08:58→17:00)
[2019-11-26] MEDS: metFORMIN 500 MG TABLET PO SCH ×2 (10:47→17:24)
[2019-11-26] MEDS: DICLOFENAC SODIUM 25 MG TABLET.DR PO SCH (10:47)
[2019-11-26] MEDS: IV NORMAL SALINE 1000ML BAG 1,000 ML IV SCH (10:48)
[2019-11-26 11:40] VITALS: BP 128/85
--- NOTE | 2019-11-26 12:13 | NUR ---
MRI: Pt had active MRI order. Spoke with MRI dept, they stated they were awaiting approval x3 days. Called Dr. Faustin to notify, he stated he did not order a MRI or CT of pt's head. Cxl order.
--- NOTE | 2019-11-26 12:26 | NUR ---
SW following. Discussed with RN, pt from home. Per RN, Dr. Faustin will call pt this afternoon to see how she feels and possibly discharge her this afternoon. No SW needs.
--- NOTE | 2019-11-26 14:10 | NUR ---
Pt called requesting pain med. Went to pt's room to admin, she was on the phone and this nurse could not have a conversation with the pt. Will check on the pt after she is off the phone.
[2019-11-26 15:25] VITALS: BP 124/76
--- NOTE | 2019-11-26 16:35 | NUR ---
1300 Lortab: Pt requested fentanyl instead of Lortab, stated Lortab has not been working for her. For AM dose, had pt take Lortab as first choice prior to giving fentanyl as Lortab was scheduled. Pt reported she did have some relief from fentanyl.
--- NOTE | 2019-11-26 19:47 | NUR ---
Discharge Note: VIRIDIANA BADILLO Discharge instructions and discharge home medications reviewed with Patient and a copy given. All questions have been answered and understanding verbalized. The following instructions and handouts were given: patient visit report, medication information, education. Discontinued lines and drains: peripheral IV, tip intact. Patient discharged to home with self care via private vehicle. Patient left unit awake, in stable condition, with all personal belongings.
--- NOTE | 2019-11-26 20:23 | DS ---
DATE OF DISCHARGE: 11/26/2019 PRIMARY DIAGNOSIS: Intractable migraine headache. ADDITIONAL DIAGNOSES: Nausea and vomiting, pseudotumor cerebri, history of prior left parietal and temporal cerebrovascular accident related to migrainous spasm, hyperlipidemia, hypertension, and diabetes. CHIEF COMPLAINT AND HISTORY OF PRESENT ILLNESS: This is a 49-year-old white female, admitted with intractable headache and unable to control at home with usual medications lasting over the last 1-2 weeks. SUMMARY OF STAY: The patient was admitted. She was placed on IV fluids, IV pain medicine, ketorolac, Benadryl with the headache eventually breaking to the point where she was functional, and felt she could be dismissed to home back on her usual home medication and this was accomplished. DISPOSITION: The patient is discharged to home. DIET: Regular ADA diet. ACTIVITY: As tolerated. FOLLOWUP: Office in 2 weeks. DISCHARGE MEDICATIONS: Listed on the med rec and have been addressed. BATOOL DONOHUE MD DR: EMILY/gil JOB#: [id number] / [id number]
== END 2019-11-26 18:00 | disposition home or self-care (01) | DRG 103 ==
LOC: 4 NORTH 20:25
PROVIDERS: ADMIT Family Medicine; ATTEND Family Medicine
DX: G43.119 Migraine with aura, intractable, without status migrainosus (principal); E11.9 Type 2 diabetes mellitus without complications; E78.5 Hyperlipidemia, unspecified; G89.29 Other chronic pain; I11.0 Hypertensive heart disease with heart failure; I50.9 Heart failure, unspecified; M17.11 Unilateral primary osteoarthritis, right knee; Z82.49 Family history of ischemic heart disease and other diseases of the circulatory system; Z86.73 Personal history of transient ischemic attack (TIA), and cerebral infarction without residual deficits; Z87.11 Personal history of peptic ulcer disease; F32.9 Major depressive disorder, single episode, unspecified; F41.9 Anxiety disorder, unspecified
CPT/HCPCS: 36415; 72131; 73560; 73565; 80053; 85025; 85610; 85651; J1040; J1200; J1885; J2270; J3010; J7030; G0378

== ENCOUNTER 2020-05-24 18:18 | Inpatient (IN) | payer BC ==
[~2020-05-24] VITALS: Ht 170.2 cm; Wt 128.2 kg
[~2020-05-24 18:18] MED LIST changes: +BUSP5TAB PO; +DICL75TA PO; +HYDR25TA PO; +IRBE300T23 PO; -LISI1TAB19 PO; +LISI1TAB37 PO; +PRAM0.255 PO; +PREG-9 PO; -PREG75CA PO
[2020-05-24 19:00] VITALS: BP 103/49
[2020-05-24] MEDS: IV NORMAL SALINE 1000ML BAG 1,000 ML IV SCH (20:05)
[2020-05-24] MEDS ORDERED: busPIRone 10 MG TABLET. PO PRN (20:15)
[2020-05-24] MEDS ORDERED: FLUT1BLS3 PO (20:24)
[2020-05-24] MEDS ORDERED: CELE200C PO (20:24)
[2020-05-24] MEDS ORDERED: ACYC400T PO (20:24)
[2020-05-24] MEDS ORDERED: TIZA4TAB2 PO (20:24)
--- NOTE | 2020-05-24 20:30 | NUR ---
ADMIT NOTE The patient, VIRIDIANA BADILLO, 49 y/o, F admitted by BATOOL FAUSTIN MD, was given written information regarding hospital policies, unit procedures and contact persons. Patient orientated to unit, plan of care discussed and admit packet reviewed. Dr. Faustin notified of admission and orders received. Unable to obtain IV access at this time, charge nurse notified and will attempt. Patient in bed, call light within reach and no other needs voiced at this time.
[2020-05-24] MEDS ORDERED: BUPR150T27 PO (20:31)
[2020-05-24] MEDS: TOPIRAMATE 100 MG TABLET. PO SCH (20:56)
[2020-05-24] MEDS: HYDROcodone/APAP 10/325 1 TAB TABLET PO PRN (20:57)
[2020-05-24] MEDS: DICLOFENAC SODIUM 25 MG TABLET.DR PO SCH (20:57)
[2020-05-24] MEDS: buPROPion SR 150 MG TABLET.SA PO SCH (20:59)
[2020-05-24] MEDS: AMITRIPTYLINE HCL 25 MG TABLET. PO SCH (20:59)
[2020-05-24] MEDS: hydrOXYzine 25 MG TABLET PO SCH (20:59)
[2020-05-24] MEDS: PREGABALIN 75 MG CAPSULE PO SCH (20:59)
[2020-05-24] MEDS: PRAMIPEXOLE 0.25 MG TABLET. PO SCH (20:59)
[2020-05-24] MEDS ORDERED: HYDROcodone/APAP 10/325 1 TAB TABLET PO SCH (21:00)
--- NOTE | 2020-05-24 21:00 | NUR ---
machine feeder raw stock unable to obtain IV access and nursing filing and polishing supervisor notified for assistance.
[2020-05-24 23:00] VITALS: BP 105/55
--- NOTE | 2020-05-24 23:15 | NUR ---
Nursing felt finishing supervisor unable to obtain IV access at this time; nursing felt finishing supervisor will contact anesthesia for assistance.
[2020-05-25 03:00] VITALS: BP 112/62
[2020-05-25] MEDS: HYDROcodone/APAP 10/325 1 TAB TABLET PO PRN ×3 (03:04→16:06)
[2020-05-25] MEDS: LEVOTHYROXINE 25 MCG TABLET. PO SCH (05:45)
[2020-05-25] MEDS: IV NORMAL SALINE 1000ML BAG 1,000 ML IV SCH ×3 (05:46→20:32)
[2020-05-25 07:00] VITALS: BP 123/47
--- NOTE | 2020-05-25 07:35 | NUR ---
Lack of IV access endorsed to SALUD Wilson during shift report.
[2020-05-25] MEDS: PREGABALIN 75 MG CAPSULE PO SCH ×2 (08:51→19:41)
[2020-05-25] MEDS: VENLAFAXINE 75 MG TABLET. PO SCH ×3 (08:52→19:42)
[2020-05-25] MEDS: hydrOXYzine 25 MG TABLET PO SCH ×3 (08:52→19:40)
[2020-05-25] MEDS: DICLOFENAC SODIUM 25 MG TABLET.DR PO SCH ×2 (08:52→16:36)
[2020-05-25] MEDS: LOSARTAN POTASSIUM 50 MG TABLET. PO SCH (08:52)
[2020-05-25] MEDS: PANTOPRAZOLE 40 MG TABLET.DR. PO SCH (08:52)
[2020-05-25] MEDS: TOPIRAMATE 100 MG TABLET. PO SCH ×2 (08:52→19:42)
[2020-05-25] MEDS: metFORMIN 500 MG TABLET PO SCH ×2 (08:52→16:36)
[2020-05-25] MEDS: buPROPion SR 150 MG TABLET.SA PO SCH ×2 (08:59→19:41)
--- NOTE | 2020-05-25 09:13 | NUR ---
SW following. Discussed with RN, pt from home, independent, room air, regular diet. RN advised no SW needs. SW will continue to follow, should any discharge needs arise.
[2020-05-25] MEDS: MORPHINE SULFATE 2 MG/ML VIAL. IV PRN ×2 (10:26→16:37)
[2020-05-25 11:00] VITALS: BP 113/64
[2020-05-25] MEDS: KETOROLAC 30 MG/ML VIAL. IVP PRN ×2 (12:27→19:35)
[2020-05-25 15:00] VITALS: BP 109/62
[2020-05-25 19:00] VITALS: BP 143/56
[2020-05-25] MEDS ORDERED: ONDANSETRON PF 4 MG/2 ML VIAL. IVP PRN (19:00)
--- NOTE | 2020-05-25 19:01 | HP ---
ADMIT DATE: 05/24/2020 HISTORY OF PRESENT ILLNESS: This 49-year-old white female is well known to me from followup in the office. The patient was admitted on the day of admission because of intractable migraine headache with inability to get relief as an outpatient on multiple medications. She notes this usually once or twice a year and we were able to finally get her broke through inpatient ____ over the last couple of years. PAST MEDICAL HISTORY: Remarkable for migraines. She does have a history of prior CVA, likely related to vasospasm related to migraine. She has a history of increased intracranial pressure and pseudotumor cerebri, diabetes and other problems listed in prior charts. Medications brought with the patient, listed on the computer and as are allergies. SOCIAL HISTORY: She is , nonsmoker, nondrinker, does not use drugs. Lives at home with her family. FAMILY HISTORY: Noncontributory. REVIEW OF SYSTEMS: Remarkable for phonophobia, photophobia, thalamic headache, nausea, vomiting and inability to break the headache as an outpatient. It is her typical migraine. PHYSICAL EXAMINATION: GENERAL: She is a well-developed, well-nourished white female, lying in the dark, appears uncomfortable. VITAL SIGNS: Stable. She is afebrile. HEAD, EYES, EARS, NOSE AND THROAT: Remarkable for some dryness of mucous membranes. NECK: Supple, without adenopathy or thyromegaly. CHEST: Clear to auscultation and percussion. HEART: Regular rate and rhythm without S3, S4 or murmur. ABDOMEN: Soft, nontender, without hepatosplenomegaly or masses. EXTREMITIES: Without cyanosis, clubbing, or edema. NEUROLOGIC: Her usual which is very mild expressive aphasia, which is followed her prior CVA. IMPRESSION: 1. Intractable migraine. 2. Other problems listed above. PLAN: The patient has been admitted. Home meds will be restarted. Her usual migraine medicines will be given. She will be IV hydrated as she is somewhat dry, the patient will be monitored, managed and treated appropriately. BATOOL DONOHUE MD DR: EMILY/gil JOB#: [id number] / [id number]
[2020-05-25] MEDS: AMITRIPTYLINE HCL 25 MG TABLET. PO SCH (19:41)
[2020-05-25] MEDS: PRAMIPEXOLE 0.25 MG TABLET. PO SCH (19:42)
[2020-05-25] MEDS: diphenhydrAMINE 50 MG/ML VIAL IVP PRN (20:36)
[2020-05-25 23:00] VITALS: BP 88/50
[2020-05-26 03:00] VITALS: BP 82/51
[2020-05-26] MEDS: LEVOTHYROXINE 25 MCG TABLET. PO SCH (06:35)
[2020-05-26] MEDS: PANTOPRAZOLE 40 MG TABLET.DR. PO SCH (06:38)
--- NOTE | 2020-05-26 07:48 | PDOC ---
GENERAL General: vss and afebrile. getting some sleep and feels little better. exam stable. blood pressures for most part run in 80's systolic anytime she has been in hospital before and should not preclude her getting meds. pruritis with morphine and benadryl ordered for same. hopefully dc this weekend. VITAL SIGNS/I&O Vital Signs/I&O: Vital Signs Date Time Temp Pulse Resp B/P (MAP) Pulse Ox O2 Delivery O2 Flow Rate FiO2 05/26/20 03:00 98.2 74 18 82/51 (61) 93 Room Air 98.2 ALLERGIES Allergies: Allergies Coded Allergies Type Severity Reaction Last Updated Verified No Known Drug Allergies 11/13/15 No MEDS Medications: Current Medications Medications (Trade) Dose Ordered Sig/Arturo Route PRN Reason Start Time Stop Time Status Last Admin Dose Admin Losartan Potassium (Cozaar) 50 mg DAILY PO 05/25/20 09:00 05/25/20 08:52 Metformin HCl (Glucophage) 1,000 mg BIDWMEALS PO 05/25/20 08:00 05/25/20 16:36 Venlafaxine HCl (Effexor) 75 mg TID PO 05/25/20 09:00 05/25/20 19:42 Diphenhydramine HCl (Benadryl) 50 mg PRN Q6HRS PRN IVP ITCHING 05/25/20 20:30 05/25/20 20:36 Justicifation of Admission Dx: Justifications for Admission: Justification of Admission Dx: Yes BATOOL DONOHUE MD May 26, 2020 07:47
[2020-05-26 07:57] VITALS: BP 97/44
[2020-05-26] MEDS: IV NORMAL SALINE 1000ML BAG 1,000 ML IV SCH ×2 (08:22→21:24)
[2020-05-26] MEDS: DICLOFENAC SODIUM 25 MG TABLET.DR PO SCH ×2 (08:23→17:23)
[2020-05-26] MEDS: metFORMIN 500 MG TABLET PO SCH ×2 (08:24→17:24)
[2020-05-26] MEDS: hydrOXYzine 25 MG TABLET PO SCH ×3 (08:24→21:00)
[2020-05-26] MEDS: PREGABALIN 75 MG CAPSULE PO SCH ×2 (08:25→21:00)
[2020-05-26] MEDS: TOPIRAMATE 100 MG TABLET. PO SCH ×2 (08:25→20:59)
[2020-05-26] MEDS: LOSARTAN POTASSIUM 50 MG TABLET. PO SCH (08:25)
[2020-05-26] MEDS: VENLAFAXINE 75 MG TABLET. PO SCH ×3 (08:25→20:59)
[2020-05-26] MEDS: buPROPion SR 150 MG TABLET.SA PO SCH ×2 (08:25→20:59)
[2020-05-26] MEDS: MORPHINE SULFATE 2 MG/ML VIAL. IV PRN ×3 (08:31→21:01)
--- NOTE | 2020-05-26 09:56 | NUR ---
SW following. Chart reviewed, pt from home, gets around fine. Dr. Faustin's note states, "hopefully dc this weekend". No SW needs. SW will continue to follow, should any needs arise.
[2020-05-26] MEDS: KETOROLAC 30 MG/ML VIAL. IVP PRN ×2 (10:30→17:24)
[2020-05-26 11:09] VITALS: BP 114/60
[2020-05-26] MEDS: HYDROcodone/APAP 10/325 1 TAB TABLET PO PRN (12:21)
[2020-05-26 14:59] VITALS: BP 96/56
[2020-05-26] MEDS: diphenhydrAMINE 50 MG/ML VIAL IVP PRN (18:39)
[2020-05-26 19:19] VITALS: BP 99/45
[2020-05-26] MEDS: PRAMIPEXOLE 0.25 MG TABLET. PO SCH (20:59)
[2020-05-26] MEDS: AMITRIPTYLINE HCL 25 MG TABLET. PO SCH (20:59)
[2020-05-26 22:22] VITALS: BP 93/39
[2020-05-27 03:30] VITALS: BP 96/45
[2020-05-27] MEDS: LEVOTHYROXINE 25 MCG TABLET. PO SCH (05:57)
[2020-05-27] MEDS: IV NORMAL SALINE 1000ML BAG 1,000 ML IV SCH ×2 (05:58→20:25)
[2020-05-27] MEDS: KETOROLAC 30 MG/ML VIAL. IVP PRN ×3 (06:00→22:54)
[2020-05-27 07:30] VITALS: BP 117/64
[2020-05-27] MEDS: PANTOPRAZOLE 40 MG TABLET.DR. PO SCH (08:17)
[2020-05-27] MEDS: LOSARTAN POTASSIUM 50 MG TABLET. PO SCH (08:17)
[2020-05-27] MEDS: metFORMIN 500 MG TABLET PO SCH ×2 (08:17→16:51)
[2020-05-27] MEDS: PREGABALIN 75 MG CAPSULE PO SCH ×2 (08:18→21:44)
[2020-05-27] MEDS: DICLOFENAC SODIUM 25 MG TABLET.DR PO SCH ×2 (08:18→16:51)
[2020-05-27] MEDS: buPROPion SR 150 MG TABLET.SA PO SCH ×2 (08:18→21:42)
[2020-05-27] MEDS: hydrOXYzine 25 MG TABLET PO SCH ×3 (08:18→21:42)
[2020-05-27] MEDS: VENLAFAXINE 75 MG TABLET. PO SCH ×3 (08:18→21:41)
[2020-05-27] MEDS: TOPIRAMATE 100 MG TABLET. PO SCH ×2 (08:18→21:41)
--- NOTE | 2020-05-27 09:47 | PDOC ---
Provider Note Provider Note bp low so will hold losartan- on iv ms, toradol for RASHEED- exam same, no labs noted- still iv saline re nausea- cont same Justicifation of Admission Dx: Justifications for Admission: Justification of Admission Dx: Yes ANABELL FIELDS MD May 27, 2020 09:47
[2020-05-27] MEDS: MORPHINE SULFATE 2 MG/ML VIAL. IV PRN ×2 (11:25→18:05)
[2020-05-27 11:40] VITALS: BP 128/51
[2020-05-27 15:06] VITALS: BP 121/57
[2020-05-27] MEDS: diphenhydrAMINE 50 MG/ML VIAL IVP PRN (18:09)
[2020-05-27 19:00] VITALS: BP 109/59
[2020-05-27] MEDS: HYDROcodone/APAP 10/325 1 TAB TABLET PO PRN (20:22)
[2020-05-27] MEDS: PRAMIPEXOLE 0.25 MG TABLET. PO SCH (21:41)
[2020-05-27] MEDS: AMITRIPTYLINE HCL 25 MG TABLET. PO SCH (21:42)
[2020-05-27 23:00] VITALS: BP_SYST 109; BP_SYST 119; BP_DIAS 59; BP_DIAS 65
[2020-05-28 03:00] VITALS: BP 125/64
[2020-05-28] MEDS: LEVOTHYROXINE 25 MCG TABLET. PO SCH (06:15)
[2020-05-28] MEDS: diphenhydrAMINE 50 MG/ML VIAL IVP PRN ×2 (06:18→19:35)
[2020-05-28] MEDS: MORPHINE SULFATE 2 MG/ML VIAL. IV PRN ×3 (06:22→21:09)
[2020-05-28 07:34] VITALS: BP 114/60
[2020-05-28] MEDS: PANTOPRAZOLE 40 MG TABLET.DR. PO SCH (07:42)
[2020-05-28] MEDS: KETOROLAC 30 MG/ML VIAL. IVP PRN ×3 (07:42→23:28)
--- NOTE | 2020-05-28 08:35 | PDOC ---
Provider Note Provider Note sleeping after iv benadryl and ms- bp beter off losartan, rest same- cont current care Justicifation of Admission Dx: Justifications for Admission: Justification of Admission Dx: Yes ANABELL FIELDS MD May 28, 2020 08:35
[2020-05-28] MEDS: metFORMIN 500 MG TABLET PO SCH ×2 (08:43→17:02)
[2020-05-28] MEDS: VENLAFAXINE 75 MG TABLET. PO SCH ×3 (08:44→21:10)
[2020-05-28] MEDS: DICLOFENAC SODIUM 25 MG TABLET.DR PO SCH ×2 (08:44→17:02)
[2020-05-28] MEDS: buPROPion SR 150 MG TABLET.SA PO SCH ×2 (08:44→21:09)
[2020-05-28] MEDS: TOPIRAMATE 100 MG TABLET. PO SCH ×2 (08:44→21:10)
[2020-05-28] MEDS: hydrOXYzine 25 MG TABLET PO SCH ×3 (08:46→21:10)
[2020-05-28] MEDS: PREGABALIN 75 MG CAPSULE PO SCH ×2 (08:46→21:10)
[2020-05-28 11:29] VITALS: BP 92/50
[2020-05-28 15:36] VITALS: BP 117/65
[2020-05-28] MEDS: IV NORMAL SALINE 1000ML BAG 1,000 ML IV SCH (17:05)
[2020-05-28 19:00] VITALS: BP 115/59
--- NOTE | 2020-05-28 19:45 | NUR ---
Attempted to restart IV x4 sticks. Not able to get IV in. Nursing spring assembler supervisor notified. Patient has been anesthesia stick in the past during this admission. Anesthesia to be notified.
--- NOTE | 2020-05-28 21:00 | NUR ---
Anesthesia here to restart IV. IV placed in left forearm 22g x2 attempts.
[2020-05-28] MEDS: PRAMIPEXOLE 0.25 MG TABLET. PO SCH (21:09)
[2020-05-28] MEDS: AMITRIPTYLINE HCL 25 MG TABLET. PO SCH (21:11)
[2020-05-28 23:00] VITALS: BP 130/67
[2020-05-29 03:00] VITALS: BP 116/71
[2020-05-29] MEDS: diphenhydrAMINE 50 MG/ML VIAL IVP PRN (06:06)
[2020-05-29] MEDS: MORPHINE SULFATE 2 MG/ML VIAL. IV PRN (06:07)
[2020-05-29] MEDS: LEVOTHYROXINE 25 MCG TABLET. PO SCH (06:08)
[2020-05-29 07:00] VITALS: BP 122/67
[2020-05-29] MEDS: buPROPion SR 150 MG TABLET.SA PO SCH (08:14)
[2020-05-29] MEDS: PANTOPRAZOLE 40 MG TABLET.DR. PO SCH (08:14)
[2020-05-29] MEDS: metFORMIN 500 MG TABLET PO SCH (08:14)
[2020-05-29] MEDS: TOPIRAMATE 100 MG TABLET. PO SCH (08:15)
[2020-05-29] MEDS: PREGABALIN 75 MG CAPSULE PO SCH (08:15)
[2020-05-29] MEDS: DICLOFENAC SODIUM 25 MG TABLET.DR PO SCH (08:15)
[2020-05-29] MEDS: VENLAFAXINE 75 MG TABLET. PO SCH (08:15)
[2020-05-29] MEDS: hydrOXYzine 25 MG TABLET PO SCH (08:15)
[2020-05-29] MEDS: HYDROcodone/APAP 10/325 1 TAB TABLET PO PRN (08:20)
[2020-05-29] MEDS: KETOROLAC 30 MG/ML VIAL. IVP PRN (08:20)
--- NOTE | 2020-05-29 08:35 | NUR ---
SW following. Chart reviewed, discharge order for home with self care. No SW needs.
--- NOTE | 2020-05-29 09:22 | NUR ---
Pt discharged home with self care. Discharge instructions discussed. Pt verbalized understanding. IV removed. Pt packed belongings. Ambulated to main entrance and was secured in car with .
--- NOTE | 2020-05-29 21:53 | DS ---
DATE OF DISCHARGE: 05/29/2020 PRIMARY DIAGNOSIS: Intractable migraine headache. ADDITIONAL DIAGNOSES: Diabetes, prior cerebrovascular accident from migrainous spasm or vasospasm related to migraine, elevated intracranial pressure, and pseudotumor cerebri. CHIEF COMPLAINT AND HISTORY OF PRESENT ILLNESS: This 49-year-old white female was admitted with intractable headache despite outpatient interventions. SUMMARY OF STAY: The patient was admitted. She was treated her usual, which includes ____ hydration, morphine, and Toradol with eventual decrease in her headache to the point where she was felt ready for discharge on the day of dismissal. DISPOSITION: The patient is discharged to home. DISCHARGE DIET: ADA diet. ACTIVITY: As tolerated. FOLLOWUP: Office in 2 weeks. DISCHARGE MEDICATIONS: Listed on the med rec and have been addressed and are her usual home medications. BATOOL DONOHUE MD DR: EMILY/gil JOB#: [id number] / [id number]
== END 2020-05-29 09:23 | disposition home or self-care (01) | DRG 103 ==
LOC: 4 NORTH 18:18
PROVIDERS: ADMIT Family Medicine; ATTEND Family Medicine
DX: G43.919 Migraine, unspecified, intractable, without status migrainosus (principal); E11.9 Type 2 diabetes mellitus without complications; Z86.73 Personal history of transient ischemic attack (TIA), and cerebral infarction without residual deficits
CPT/HCPCS: J1200; J1885; J2270; J7030; G0378

== ENCOUNTER 2020-10-11 18:43 | Inpatient (IN) | payer BC ==
[~2020-10-11] VITALS: Ht 170.2 cm; Wt 127.6 kg
[~2020-10-11 18:43] MED LIST changes: +ACYC400T PO; +BUPR150T27 PO; +FLUT1BLS3 PO; +diphenhydrAMINE 50 MG/ML VIAL IVP ONE
[2020-10-11 18:55] VITALS: BP 106/55
[2020-10-11] MEDS ORDERED: MORPHINE SULFATE 2 MG/ML VIAL. IV PRN (19:45)
[2020-10-11] MEDS ORDERED: ONDANSETRON PF 4 MG/2 ML VIAL. IVP PRN (19:45)
[2020-10-11] MEDS: IV NORMAL SALINE 1000ML BAG 1,000 ML IV SCH (19:45)
[2020-10-11] MEDS: diphenhydrAMINE 50 MG/ML VIAL IVP PRN (21:22)
[2020-10-11] MEDS: KETOROLAC 30 MG/ML VIAL. IVP PRN (21:22)
[2020-10-11] MEDS ORDERED: busPIRone 5 MG TABLET. PO PRN (22:15)
[2020-10-11] MEDS ORDERED: tiZANidine 4 MG TABLET. PO PRN (22:15)
[2020-10-11 23:00] VITALS: BP 133/71
[2020-10-11] MEDS: buPROPion SR 150 MG TABLET.SA PO SCH (23:00)
[2020-10-11] MEDS: AMITRIPTYLINE HCL 25 MG TABLET. PO SCH (23:00)
[2020-10-11] MEDS: PRAMIPEXOLE 0.25 MG TABLET. PO SCH (23:00)
[2020-10-11] MEDS: PREGABALIN 75 MG CAPSULE PO SCH (23:00)
[2020-10-11] MEDS: hydrOXYzine 25 MG TABLET PO SCH (23:00)
[2020-10-11] MEDS: TOPIRAMATE 100 MG TABLET. PO SCH (23:00)
[2020-10-12 03:00] VITALS: BP 142/72
[2020-10-12] MEDS: KETOROLAC 30 MG/ML VIAL. IVP PRN ×3 (03:28→20:27)
[2020-10-12] MEDS: diphenhydrAMINE 50 MG/ML VIAL IVP PRN ×3 (03:28→17:11)
[2020-10-12] MEDS: MORPHINE SULFATE 4 MG/ML VIAL. IV PRN ×4 (03:29→20:29)
--- NOTE | 2020-10-12 04:14 | NUR ---
Order placed for [facility] to place midline due to patient being a hard stick. Pt signed consents. Will continue to monitor. M[facility]
[2020-10-12] MEDS: LEVOTHYROXINE 25 MCG TABLET. PO SCH (05:42)
[2020-10-12] MEDS: IV NORMAL SALINE 1000ML BAG 1,000 ML IV SCH ×2 (05:43→17:12)
[2020-10-12 07:00] VITALS: BP 115/76
[2020-10-12] MEDS: IPRATRPIUM/ALBUTEROL 0.5/2.5MG 3 ML NEBU. NEB SCH ×4 (07:14→19:57)
[2020-10-12] MEDS: BUDESONIDE 0.5 MG/2 ML NEBU. NEB SCH ×2 (07:14→19:57)
[2020-10-12] MEDS: hydrOXYzine 25 MG TABLET PO SCH ×3 (08:09→20:28)
[2020-10-12] MEDS: PANTOPRAZOLE 40 MG TABLET.DR. PO SCH (08:09)
[2020-10-12] MEDS: metFORMIN 500 MG TABLET PO SCH ×2 (08:09→17:10)
[2020-10-12] MEDS: PREGABALIN 75 MG CAPSULE PO SCH ×2 (08:09→20:28)
[2020-10-12] MEDS: buPROPion SR 150 MG TABLET.SA PO SCH ×2 (08:09→20:28)
[2020-10-12] MEDS: CELECOXIB 100 MG CAPSULE. PO SCH (08:09)
[2020-10-12] MEDS: VENLAFAXINE 75 MG TABLET. PO SCH ×3 (08:09→20:28)
[2020-10-12] MEDS: TOPIRAMATE 100 MG TABLET. PO SCH ×2 (08:09→20:28)
[2020-10-12] MEDS: LOSARTAN POTASSIUM 50 MG TABLET. PO SCH (08:10)
[2020-10-12] MEDS ORDERED: DICLOFENAC SODIUM 25 MG TABLET.DR PO SCH (09:00)
[2020-10-12] MEDS ORDERED: NON FORMULARY ITEM (Fluticasone/Umeclidin/Vilanter (Trelegy Ellipta 100-62.5-25) 1 PUFF) PO SCH (09:00)
--- NOTE | 2020-10-12 09:37 | NUR ---
SW following. Discussed with RN, pt from home with , room air, ada diet. RN advised no SW needs at this time. SW will continue to follow.
[2020-10-12 10:56] VITALS: BP 146/71
[2020-10-12 14:46] VITALS: BP 126/77
[2020-10-12 19:00] VITALS: BP 134/76
--- NOTE | 2020-10-12 19:33 | HP ---
ADMIT DATE: 10/11/2020 CHIEF COMPLAINT AND HISTORY OF PRESENT ILLNESS: This 50-year-old white female well known to me from followup in the office. The patient was seen in the office on the day of admission and admitted because of intractable migraine headache with inability to get relief as an outpatient. PAST MEDICAL HISTORY: Remarkable for migraines. 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 She has a history of increased intracranial pressure and pseudotumor cerebri, diabetes. MEDICATIONS: Brought with the patient, listed on computer and have been addressed. ALLERGIES: She has no known drug allergies. SOCIAL HISTORY: She is , nonsmoker, nondrinker, does not use drugs. Lives at home with her family. FAMILY HISTORY: Noncontributory. REVIEW OF SYSTEMS: Remarkable for pounding, throbbing headache, phonophobia, photophobia, some nausea, but no vomiting. Otherwise, her review of systems is unremarkable. PHYSICAL EXAMINATION: GENERAL: She is a well-developed, well-nourished white female, lying in bed with covers over her eyes. She appears uncomfortable. VITAL SIGNS: Stable. She is afebrile. HEAD, EYES, EARS, NOSE AND THROAT: Unremarkable. NECK: Supple, without adenopathy or thyromegaly. CHEST: Clear to auscultation and percussion. HEART: Regular rate and rhythm without S3, S4 or murmur. ABDOMEN: Soft, nontender, without hepatosplenomegaly or masses. EXTREMITIES: Without cyanosis, clubbing or edema. NEUROLOGIC: Nonfocal other than her mild expressive aphasia, which has been for years since her prior CVA. IMPRESSION: 1. Intractable migraine. 2. Other problems listed above. PLAN: The patient has been admitted. Home meds have been restarted. Her usual migraine cocktail will be given. She will be hydrated IV lynn, monitored, managed and treated appropriately. BATOOL DONOHUE MD DR: EMILY/gil JOB#: [id number] / [id number]
[2020-10-12] MEDS: PRAMIPEXOLE 0.25 MG TABLET. PO SCH (20:28)
[2020-10-12] MEDS: AMITRIPTYLINE HCL 25 MG TABLET. PO SCH (20:28)
[2020-10-12 23:00] VITALS: BP 124/70
[2020-10-13] MEDS: diphenhydrAMINE 50 MG/ML VIAL IVP PRN ×4 (00:37→19:49)
[2020-10-13] MEDS: MORPHINE SULFATE 4 MG/ML VIAL. IV PRN ×6 (00:47→21:33)
--- NOTE | 2020-10-13 01:43 | PN ---
DATE: 10/12/2020 LOCATION: She is in room 424. SUBJECTIVE: The patient is awake and alert. States the headache has not improved much, although we have not been able to give her much in the way of medications because of troubles with the IV access until the PICC line was placed just a short while ago. She is awake and alert, continues to complain of headaches. Has had no nausea or vomiting. OBJECTIVE: VITAL SIGNS: Stable. She is afebrile. Blood pressures are on the lower side. CHEST: Clear. HEART: Regular. ABDOMEN: Benign. NEUROLOGIC: Without any changes from her normal. Mild expressive aphasia. IMPRESSION: 1. Intractable migraine. 2. Diabetes. 3. Pseudotumor cerebri with increased intracranial pressure. PLAN: Continue current cocktail, which has evolved over the years when she was admitted, seems to get rid of the migraine in the best fashion which has been tested over time and suggested by Neurology in the past. I see no reason to consult Neurology as this appears to be her usual migraine. BATOOL DONOHUE MD DR: EMILY/gil JOB#: [id number] / [id number]
[2020-10-13] MEDS: IV NORMAL SALINE 1000ML BAG 1,000 ML IV SCH ×2 (01:58→13:07)
[2020-10-13] MEDS: KETOROLAC 30 MG/ML VIAL. IVP PRN ×4 (02:55→21:31)
[2020-10-13 03:37] VITALS: BP 96/56
[2020-10-13] MEDS: LEVOTHYROXINE 25 MCG TABLET. PO SCH (06:11)
[2020-10-13 07:00] VITALS: BP 96/45
[2020-10-13] MEDS: IPRATRPIUM/ALBUTEROL 0.5/2.5MG 3 ML NEBU. NEB SCH ×4 (07:43→20:50)
[2020-10-13] MEDS: BUDESONIDE 0.5 MG/2 ML NEBU. NEB SCH ×2 (07:43→20:50)
[2020-10-13] MEDS: PANTOPRAZOLE 40 MG TABLET.DR. PO SCH (07:49)
--- NOTE | 2020-10-13 07:56 | PN ---
DATE: 10/13/2020 LOCATION: She is in room 424. SUBJECTIVE: The patient was asleep when I came in the room, but awakens easily. States the headache has lessened a slight amount, but she is happy for any decrease. She is receiving her usual migraine cocktail to try to break this intractable headache. OBJECTIVE: VITAL SIGNS: Stable. She is afebrile. CHEST: Clear. HEART: Regular. ABDOMEN: Benign. NEUROLOGIC: Without any changes. IMPRESSION: 1. Intractable migraine. 2. Diabetes. 3. Pseudotumor cerebri with increased intracranial pressure. PLAN: Continue present and wait for of the headache with discharge to home. BATOOL DONOHUE MD DR: EMILY/gil JOB#: [id number] / [id number]
[2020-10-13] MEDS: LOSARTAN POTASSIUM 50 MG TABLET. PO SCH (09:00)
[2020-10-13] MEDS: metFORMIN 500 MG TABLET PO SCH ×2 (09:04→17:29)
[2020-10-13] MEDS: hydrOXYzine 25 MG TABLET PO SCH ×3 (09:05→20:48)
[2020-10-13] MEDS: CELECOXIB 100 MG CAPSULE. PO SCH (09:05)
[2020-10-13] MEDS: TOPIRAMATE 100 MG TABLET. PO SCH ×2 (09:06→20:47)
[2020-10-13] MEDS: VENLAFAXINE 75 MG TABLET. PO SCH ×3 (09:06→20:48)
[2020-10-13] MEDS: PREGABALIN 75 MG CAPSULE PO SCH ×2 (09:06→20:48)
[2020-10-13] MEDS: buPROPion SR 150 MG TABLET.SA PO SCH ×2 (09:06→20:47)
--- NOTE | 2020-10-13 09:29 | NUR ---
SW following. Discussed with RN, pt from home with , room air, ada diet. Pt receiving medication for migraine. RN advised no SW needs at this time, pt will discharge home when medically stable. SW will continue to follow.
[2020-10-13 11:00] VITALS: BP 100/47
[2020-10-13 15:00] VITALS: BP 96/49
[2020-10-13 19:15] VITALS: BP 111/61
[2020-10-13] MEDS: PRAMIPEXOLE 0.25 MG TABLET. PO SCH (20:47)
[2020-10-13] MEDS: AMITRIPTYLINE HCL 25 MG TABLET. PO SCH (20:48)
[2020-10-13 22:58] VITALS: BP 114/54
[2020-10-14] MEDS: IV NORMAL SALINE 1000ML BAG 1,000 ML IV SCH ×3 (00:26→09:22)
[2020-10-14 03:06] VITALS: BP 99/50
[2020-10-14] MEDS: LEVOTHYROXINE 25 MCG TABLET. PO SCH (06:34)
[2020-10-14 07:00] VITALS: BP 119/63
[2020-10-14] MEDS: MORPHINE SULFATE 4 MG/ML VIAL. IV PRN ×2 (07:27→13:40)
[2020-10-14] MEDS: PANTOPRAZOLE 40 MG TABLET.DR. PO SCH (07:27)
[2020-10-14] MEDS: diphenhydrAMINE 50 MG/ML VIAL IVP PRN ×2 (07:31→13:41)
[2020-10-14] MEDS: BUDESONIDE 0.5 MG/2 ML NEBU. NEB SCH (07:34)
[2020-10-14] MEDS: IPRATRPIUM/ALBUTEROL 0.5/2.5MG 3 ML NEBU. NEB SCH ×2 (07:34→11:50)
[2020-10-14] MEDS: TOPIRAMATE 100 MG TABLET. PO SCH (09:14)
[2020-10-14] MEDS: CELECOXIB 100 MG CAPSULE. PO SCH (09:14)
[2020-10-14] MEDS: metFORMIN 500 MG TABLET PO SCH (09:14)
[2020-10-14] MEDS: LOSARTAN POTASSIUM 50 MG TABLET. PO SCH (09:15)
[2020-10-14] MEDS: buPROPion SR 150 MG TABLET.SA PO SCH (09:15)
[2020-10-14] MEDS: PREGABALIN 75 MG CAPSULE PO SCH (09:15)
[2020-10-14] MEDS: VENLAFAXINE 75 MG TABLET. PO SCH (09:15)
[2020-10-14] MEDS: hydrOXYzine 25 MG TABLET PO SCH (09:15)
[2020-10-14] MEDS: KETOROLAC 30 MG/ML VIAL. IVP PRN (09:20)
[2020-10-14 10:47] VITALS: BP 105/55
--- NOTE | 2020-10-14 13:04 | DS ---
DATE OF DISCHARGE: 10/14/2020 PRIMARY DIAGNOSIS: Intractable migraine headache. ADDITIONAL DIAGNOSES: Diabetes; prior cerebrovascular accident, felt related to vasospasm due to migraine with expressive aphasia, mild; history of increased intracranial pressure and pseudotumor cerebri. CHIEF COMPLAINT AND HISTORY OF PRESENT ILLNESS: This 50-year-old white female admitted with a headache that we are unable to control as an outpatient, which she has done a couple of times a year over the last several years. SUMMARY OF STAY: The patient was admitted, put on her usual cocktail, which has evolved over the years for headaches with daily improvement to the point where she was felt she could be dismissed on the day of discharge as things were under better control, although she still had a mild headache, but that is her normal daily routine. DISPOSITION: The patient is discharged to home, ADA diet. ACTIVITY: As tolerated. FOLLOWUP: Followup in the office as scheduled. DISCHARGE MEDICATIONS: Listed on the computer and have been addressed and they are her usual home medication routine. BATOOL DONOHUE MD DR: EMILY/gil JOB#: [id number] / [id number]
--- NOTE | 2020-10-14 14:30 | NUR ---
Pt. discharged to home, verbalized understanding of discharge instructions.
== END 2020-10-14 15:16 | disposition home or self-care (01) | DRG 103 ==
LOC: 4 NORTH 18:43
PROVIDERS: ADMIT Family Medicine; ATTEND Family Medicine
DX: G43.919 Migraine, unspecified, intractable, without status migrainosus (principal); R47.01 Aphasia; E11.9 Type 2 diabetes mellitus without complications; G93.2 Benign intracranial hypertension; Z86.73 Personal history of transient ischemic attack (TIA), and cerebral infarction without residual deficits
CPT/HCPCS: 94640; 94760; J1200; J1885; J2270; J7030; G0378; J7626

== ENCOUNTER 2020-11-28 16:33 | Inpatient (IN) | payer BC, OTHER ==
[~2020-11-28] VITALS: Ht 170.2 cm; Wt 125.0 kg
[~2020-11-28 16:33] MED LIST changes: -LISI-338 PO; +LISI-517 PO; -diphenhydrAMINE 50 MG/ML VIAL IVP ONE
[2020-11-28] MEDS ORDERED: ONDANSETRON PF 4 MG/2 ML VIAL. IVP PRN (17:15)
[2020-11-28 18:19] LABS: BASO # 0.1 x10^3/uL (0.0-0.2); BASO % 1 % (0-3); EOS # 0.1 x10^3/uL (0.0-0.7); EOS % 1 % (0-3); LYMPH # 2.9 x10^3/uL (1.0-4.8); LYMPH % 37 % (24-48); MEAN CORPUSCULAR HEMOGLOBIN 24 pg (25-35); MEAN CORPUSCULAR HGB CONC 32 g/dL (31-37); MEAN CORPUSCULAR VOLUME 75 fL (79-100); MONO # 0.5 x10^3/uL (0.0-1.1); MONO % 6 % (0-9); NEUT # 4.2 x10^3/uL (1.8-7.7); NEUT % 54 % (31-73); PLATELET COUNT 397 x10^3/uL (140-400); RED BLOOD COUNT 4.51 x10^6/uL (3.50-5.40); RED CELL DISTRIBUTION WIDTH 17.2 % (11.5-14.5); WHITE BLOOD COUNT 7.8 x10^3/uL (4.0-11.0)
[2020-11-28 18:33] LABS: ALBUMIN 3.6 g/dL (3.4-5.0); CREATININE 0.8 mg/dL (0.6-1.0); GFR 76.2; POTASSIUM 3.7 mmol/L (3.5-5.1); TOTAL BILIRUBIN 0.2 mg/dL (0.2-1.0); TOTAL PROTEIN 7.2 g/dL (6.4-8.2)
[2020-11-28] MEDS ORDERED: busPIRone 5 MG TABLET. PO PRN (18:45)
--- NOTE | 2020-11-28 18:45 | HP ---
ADMIT DATE: 11/28/2020 CHIEF COMPLAINT AND HISTORY OF PRESENT ILLNESS: This 50-year-old white female is well known to me from followup in the office. The patient has longstanding history of severe migraines with vasospasm due to the same causing a CVA in the past. She is admitted at this point in time for intractable migraine despite outpatient medicines to try to get relief. PAST MEDICAL HISTORY: Remarkable for migraines and CVA related to the same. She has a history of increased intracranial pressure with pseudotumor cerebri and diabetes. MEDICATIONS: Brought with the patient, listed on the computer and have been addressed. ALLERGIES: She has no known drug allergies. SOCIAL HISTORY: , lives at home with family, is a nonsmoker, nondrinker, does not use drugs. FAMILY HISTORY: Noncontributory. REVIEW OF SYSTEMS: Remarkable for pounding, throbbing of her head, phonophobia and photophobia, nausea without vomiting. PHYSICAL EXAMINATION: GENERAL: She is well-developed, well-nourished white female who appears very uncomfortable. VITAL SIGNS: Stable. She is afebrile. HEAD, EYES, EARS, NOSE AND THROAT: Unremarkable. NECK: Supple, without adenopathy or thyromegaly. CHEST: Clear to auscultation and percussion. HEART: Regular rate and rhythm without S3, S4 or murmur. ABDOMEN: Soft, nontender, without hepatosplenomegaly or mass. EXTREMITIES: Without cyanosis, clubbing, edema. NEUROLOGIC: Remarkable for some very mild expressive aphasia from a prior CVA. IMPRESSION: 1. Intractable migraine. 2. Other problems listed above. PLAN: The patient will be admitted. Home meds will be continued. Her usual migraine cocktail will be instituted and the patient will be monitored, managed and treated appropriately. BATOOL DONOHUE MD DR: EMILY/gil JOB#: [id number] / [id number]
[2020-11-28 19:20] VITALS: BP 115/63
[2020-11-28] MEDS: IV 1/2 NORMAL SALINE 1,000 ML IV SCH (19:50)
[2020-11-28 19:54] LABS: BILIRUBIN,URINE NEGATIVE (NEG); CLARITY,URINE CLEAR; COLOR,URINE YELLOW; NITRITE,URINE NEGATIVE (NEG); PROTEIN,URINE NEGATIVE (NEG-TRACE); UROBILINOGEN,URINE 0.2 mg/dL (0.2 mg/dL)
[2020-11-28] MEDS: MORPHINE SULFATE 4 MG/ML VIAL. IV PRN (19:59)
[2020-11-28] MEDS: diphenhydrAMINE 50 MG/ML VIAL IVP PRN (20:02)
[2020-11-28 20:03] LABS: BACTERIA,URINE MOD /HPF (0-FEW); RBC,URINE OCC /HPF (0-2)
[2020-11-28] MEDS: ALBUTEROL SULFATE 2.5 MG/3 ML NEBU. NEB SCH (20:13)
[2020-11-28] MEDS: BUDESONIDE 0.5 MG/2 ML NEBU. NEB SCH (20:13)
[2020-11-28] MEDS: PRAMIPEXOLE 0.25 MG TABLET. PO SCH (21:00)
[2020-11-28] MEDS: PREGABALIN 75 MG CAPSULE PO SCH (21:12)
[2020-11-28] MEDS: buPROPion SR 150 MG TABLET.SA PO SCH (21:13)
[2020-11-28] MEDS: hydrOXYzine 25 MG TABLET PO SCH (21:13)
[2020-11-28] MEDS: HYDROcodone/APAP 10/325 1 TAB TABLET PO SCH (21:13)
[2020-11-28] MEDS: AMITRIPTYLINE HCL 25 MG TABLET. PO SCH (21:14)
[2020-11-28] MEDS: TOPIRAMATE 100 MG TABLET. PO SCH (21:14)
[2020-11-28 22:53] VITALS: BP 141/68
[2020-11-28] MEDS: KETOROLAC 30 MG/ML VIAL. IVP PRN (23:05)
[2020-11-29] MEDS: MORPHINE SULFATE 4 MG/ML VIAL. IV PRN ×4 (02:04→20:34)
[2020-11-29] MEDS: diphenhydrAMINE 50 MG/ML VIAL IVP PRN ×4 (02:04→20:34)
[2020-11-29 02:53] VITALS: BP 122/64
[2020-11-29] MEDS: LEVOTHYROXINE 25 MCG TABLET. PO SCH (05:42)
[2020-11-29] MEDS: IV 1/2 NORMAL SALINE 1,000 ML IV SCH ×3 (05:47→21:05)
[2020-11-29 07:00] VITALS: BP 101/65
[2020-11-29] MEDS: ALBUTEROL SULFATE 2.5 MG/3 ML NEBU. NEB SCH ×4 (07:46→19:09)
[2020-11-29] MEDS: BUDESONIDE 0.5 MG/2 ML NEBU. NEB SCH ×2 (07:47→19:10)
--- NOTE | 2020-11-29 08:16 | PN ---
DATE: 11/29/2020 DAILY PROGRESS NOTE LOCATION: She is in room 426. SUBJECTIVE: The patient is awake, coming into the room. She still is quite miserable from the headache. They had IV access difficulties and really did not get started until later 9:00 last night. She feels like she got a couple of hours of sleep with this. OBJECTIVE: VITAL SIGNS: Stable. She is afebrile. GENERAL: She is awake and alert. She has some mild expressive aphasia. CHEST: Clear. HEART: Regular. ABDOMEN: Benign. NEUROLOGIC: Otherwise, nonfocal. IMPRESSION: 1. Intractable migraine headache. 2. Pseudotumor cerebri. 3. Increased intracranial pressure. PLAN: Continue present migraine regimen that has developed over the years by Neurology, with Neurology consultation only if she does not continue to improve. BATOOL DONOHUE MD DR: EMILY/gil JOB#: [id number] / [id number]
[2020-11-29] MEDS: TOPIRAMATE 100 MG TABLET. PO SCH ×2 (08:35→20:33)
[2020-11-29] MEDS: metFORMIN 500 MG TABLET PO SCH ×2 (08:35→17:55)
[2020-11-29] MEDS: PANTOPRAZOLE 40 MG TABLET.DR. PO SCH (08:35)
[2020-11-29] MEDS: buPROPion SR 150 MG TABLET.SA PO SCH ×2 (08:35→20:32)
[2020-11-29] MEDS: VENLAFAXINE 75 MG TABLET. PO SCH ×3 (08:35→20:33)
[2020-11-29] MEDS: CELECOXIB 100 MG CAPSULE. PO SCH (08:35)
[2020-11-29] MEDS: hydrOXYzine 25 MG TABLET PO SCH ×3 (08:36→20:33)
[2020-11-29] MEDS: HYDROcodone/APAP 10/325 1 TAB TABLET PO SCH ×4 (08:36→20:33)
[2020-11-29] MEDS: PREGABALIN 75 MG CAPSULE PO SCH ×2 (08:36→20:33)
[2020-11-29] MEDS ORDERED: NON FORMULARY ITEM (Fluticasone/Umeclidin/Vilanter (Trelegy Ellipta 100-62.5-25) 1 PUFF) PO SCH (09:00)
[2020-11-29] MEDS: LOSARTAN POTASSIUM 50 MG TABLET. PO SCH (09:00)
--- NOTE | 2020-11-29 09:16 | NUR ---
SW following. Discussed with RN, pt from home with , room air, ada diet. RN advised no SW needs at this time. SW will continue to follow.
[2020-11-29] MEDS: KETOROLAC 30 MG/ML VIAL. IVP PRN ×2 (11:01→17:56)
[2020-11-29 11:04] VITALS: BP 105/44
[2020-11-29] MEDS: tiZANidine 4 MG TABLET. PO PRN ×2 (13:22→20:00)
[2020-11-29 15:59] VITALS: BP 95/47
[2020-11-29 19:00] VITALS: BP 113/63
[2020-11-29] MEDS: AMITRIPTYLINE HCL 25 MG TABLET. PO SCH (20:32)
[2020-11-29] MEDS: PRAMIPEXOLE 0.25 MG TABLET. PO SCH (20:32)
[2020-11-29] MEDS ORDERED: NEOMY/BACITR/POLYMYXIN OINT PACKET. TP ONE (22:00)
[2020-11-29 23:00] VITALS: BP 107/32
[2020-11-30] MEDS: KETOROLAC 30 MG/ML VIAL. IVP PRN ×3 (01:59→17:18)
[2020-11-30 03:00] VITALS: BP 107/32
[2020-11-30] MEDS: diphenhydrAMINE 50 MG/ML VIAL IVP PRN ×3 (03:05→15:15)
[2020-11-30] MEDS: MORPHINE SULFATE 4 MG/ML VIAL. IV PRN ×3 (03:05→15:15)
[2020-11-30] MEDS: tiZANidine 4 MG TABLET. PO PRN ×2 (03:08→11:58)
[2020-11-30] MEDS: PANTOPRAZOLE 40 MG TABLET.DR. PO SCH (06:09)
[2020-11-30] MEDS: LEVOTHYROXINE 25 MCG TABLET. PO SCH (06:09)
[2020-11-30 07:00] VITALS: BP 119/68
[2020-11-30] MEDS: ALBUTEROL SULFATE 2.5 MG/3 ML NEBU. NEB SCH ×3 (07:16→15:07)
[2020-11-30] MEDS: BUDESONIDE 0.5 MG/2 ML NEBU. NEB SCH (07:16)
[2020-11-30] MEDS: TOPIRAMATE 100 MG TABLET. PO SCH (08:47)
[2020-11-30] MEDS: CELECOXIB 100 MG CAPSULE. PO SCH (08:47)
[2020-11-30] MEDS: metFORMIN 500 MG TABLET PO SCH ×2 (08:48→17:19)
[2020-11-30] MEDS: PREGABALIN 75 MG CAPSULE PO SCH (08:48)
[2020-11-30] MEDS: buPROPion SR 150 MG TABLET.SA PO SCH (08:48)
[2020-11-30] MEDS: VENLAFAXINE 75 MG TABLET. PO SCH ×2 (08:48→13:56)
[2020-11-30] MEDS: HYDROcodone/APAP 10/325 1 TAB TABLET PO SCH ×3 (08:48→17:19)
[2020-11-30] MEDS: LOSARTAN POTASSIUM 50 MG TABLET. PO SCH (08:48)
[2020-11-30] MEDS: hydrOXYzine 25 MG TABLET PO SCH ×2 (08:48→13:56)
--- NOTE | 2020-11-30 09:11 | NUR ---
SW following. Discussed with RN, pt from home with , room air, ada diet. RN advised no SW needs at this time. Anticipate pt will discharge home with self care in the next day or two. SW will continue to follow.
[2020-11-30] MEDS: IV 1/2 NORMAL SALINE 1,000 ML IV SCH ×2 (09:15→11:55)
[2020-11-30 11:00] VITALS: BP 105/48
[2020-11-30 15:00] VITALS: BP 130/42
--- NOTE | 2020-11-30 17:45 | DS ---
DATE OF DISCHARGE: 11/30/2020 PRIMARY DIAGNOSIS: Intractable migraine headache. ADDITIONAL DIAGNOSES: Pseudotumor cerebri, increased intracranial pressure, diabetes mellitus, restless legs. CHIEF COMPLAINT AND HISTORY OF PRESENT ILLNESS: This 50-year-old white female admitted with intractable headache and unable to break the same at home. She had photophobia, phonophobia, nausea, throbbing. No vomiting. SUMMARY OF STAY: The patient was admitted and placed on her usual migraine cocktail, developed by Neurology over the years and slowly improved. She was able to get some sleep, did feel like it was brought to the point, although was not gone that she could function at home and it was felt she could be dismissed on the day of discharge. DISPOSITION: The patient is discharged to home on ADA diet. ACTIVITY: As tolerated, office as scheduled. DISCHARGE MEDICATIONS: Listed on the med rec and have been addressed. BATOOL DONOHUE MD DR: EMILY/gil JOB#: [id number] / [id number]
--- NOTE | 2020-11-30 18:20 | NUR ---
Pt. discharged to home, verbalized understanding of discharge instructions.
== END 2020-11-30 18:21 | disposition home or self-care (01) | DRG 103 ==
LOC: 4 NORTH 16:33
PROVIDERS: ADMIT Family Medicine; ATTEND Family Medicine
DX: G43.919 Migraine, unspecified, intractable, without status migrainosus (principal); E11.9 Type 2 diabetes mellitus without complications; G93.2 Benign intracranial hypertension; Z86.73 Personal history of transient ischemic attack (TIA), and cerebral infarction without residual deficits
CPT/HCPCS: 36415; 80053; 81001; 82962; 83540; 83550; 85025; 94640; 94760; J1200; J1885; J2270; J3490; G0378; J7613; J7626

== ENCOUNTER → 2021-05-22 | Outpatient (CLI) | payer BC ==
[2021-04-01 11:00] VITALS: BP 124/64
[~2021-05-22] MED LIST changes: +ACYC-12 PO; -ACYC400T PO; +HYDR-2761 PO; +HYDR-2767 PO; +KETO10TA PO; +NYST15PO9 TP; -OMEP40CA45 PO; +OMEP40CA7 PO; +PROC10TA57 PO; +SUMA100T3 PO; +VENL75TA PO; +ZOLP10TA PO
--- NOTE | 2021-05-22 13:08 | KCIC ---
EXAM: DUAL ENERGY X-RAY ABSORPTIOMETRY (DEXA). HISTORY: Postmenopausal screening. FINDINGS: The lowest measured T-score is 1.2 in the left total femur, based on a bone mineral density of 1.085 g/cm^2. Refer to the worksheets for full detail. No comparison examinations are available. IMPRESSION: Normal. Bone mineral density yields a T-score of -1.0 or greater. Fracture risk is low. FRAX was not calculated. METHODOLOGY: Dual energy x-ray absorptiometry was performed to measure bone mineral density. The foll owing analysis is based on the 2019 Official Positions of the International Society for Clinical Dens itometry: Measurements of the hips and the average of L1-L4 are preferred. When the spine and/or hip cannot be feasibly measured or interpreted, or in the setting of hyperparathyroidism, distal radial bone minera l density may be measured. The lumbar spine T-score is based on the average bone mineral density of L1-L4. In the setting of art ifact or anatomic abnormality, some lumbar levels may be excluded, and the remaining levels used for calculation. A single lumbar level is not used for diagnosis, and if only a single level is available for assessment, another anatomic site will be used to assign a diagnosis. The hip T-score is based on the bone mineral density measurement of the femoral neck or total proxima l femur of either side, whichever is lowest. Bilateral mean values are not used for diagnosis. The forearm T-score is derived from 33% of the distal radius of the nondominant forearm. For postmenopausal and perimenopausal women, and men age 50 or older, of all ethnic groups, T-scores are calculated through comparison of the current measurement with the NHANES III database standard fo r females aged 20-29 years. The lowest T-score of the evaluated anatomic sites is used to a ssign a diagnosis based on the World Health Organization densitometric classification. In premenopausal females and males younger than age 50, a Z-score is calculated based on population s pecific reference data for patient sex and self-reported ethnicity. Electronically signed by: Radha Renteria MD (05/22/2021 1:06 PM) [facility]
== END ==
LOC: KCIC DEXA 12:37
PROVIDERS: ATTEND Family Medicine
DX: M81.0 Age-related osteoporosis without current pathological fracture (principal)
CPT/HCPCS: 77080

== ENCOUNTER 2021-08-16 15:15 | Inpatient (IN) | payer BC ==
[~2021-08-16] VITALS: Ht 170.2 cm; Wt 135.8 kg
[~2021-08-16 15:15] MED LIST changes: -LISI-517 PO; +LISI5TAB15 PO; +TIZA-75 PO; -TIZA4TAB2 PO
[2021-08-16 15:53] VITALS: BP 118/64
[2021-08-16] MEDS ORDERED: KETOROLAC TROMETHAMINE 10 MG TABLET PO PRN (16:15)
[2021-08-16] MEDS ORDERED: tiZANidine 4 MG TABLET. PO PRN (16:15)
[2021-08-16] MEDS ORDERED: BYSTOLIC10 MG PO (16:54)
[2021-08-16] MEDS ORDERED: SEMA1PEN3 SQ (16:55)
[2021-08-16] MEDS ORDERED: CHOL500021 PO (16:56)
[2021-08-16] MEDS ORDERED: CELE200C PO (16:59)
[2021-08-16] MEDS ORDERED: PREG150C PO (17:00)
[2021-08-16] MEDS ORDERED: ONDANSETRON PF 4 MG/2 ML VIAL. IVP PRN (17:15)
[2021-08-16] MEDS: PROCHLORPERAZINE 5 MG TABLET. PO SCH (18:00)
[2021-08-16] MEDS: metFORMIN 500 MG TABLET PO SCH (18:29)
[2021-08-16] MEDS: diphenhydrAMINE 50 MG/ML VIAL IVP PRN (18:29)
[2021-08-16] MEDS: MORPHINE SULFATE 4 MG/ML INJ. IV PRN (18:30)
[2021-08-16] MEDS: IV NORMAL SALINE 1000ML BAG 1,000 ML IV SCH (18:38)
[2021-08-16 19:00] VITALS: BP 153/83
--- NOTE | 2021-08-16 19:30 | NUR ---
Nurse's note: The patient is a direct admission under the service of Dr. Faustin, med surg status. She came in due to intractable headache with history of chronic migraine ,pseudotumor cerebri. Dr. Faustin notified of admission at 1553, orders received. The patient meds were reviewed, IV was started. Report given to next shift.
[2021-08-16] MEDS: BUDESONIDE 0.5 MG/2 ML NEBU. NEB SCH (20:32)
[2021-08-16] MEDS: IPRATRPIUM/ALBUTEROL 0.5/2.5MG 3 ML NEBU. NEB SCH (20:32)
[2021-08-16] MEDS: PRAMIPEXOLE 0.25 MG TABLET. PO SCH (20:47)
[2021-08-16] MEDS: buPROPion SR 150 MG TABLET.SA PO SCH (20:48)
[2021-08-16] MEDS: PREGABALIN 75 MG CAPSULE PO SCH (20:48)
[2021-08-16] MEDS: AMITRIPTYLINE HCL 25 MG TABLET. PO SCH (20:48)
[2021-08-16] MEDS: HYDROcodone/APAP 5/325MG 1 TAB TABLET PO PRN (20:48)
[2021-08-16] MEDS: KETOROLAC 30 MG/ML VIAL. IVP PRN (20:49)
[2021-08-16 23:06] VITALS: BP 135/67
[2021-08-17] MEDS: MORPHINE SULFATE 4 MG/ML INJ. IV PRN ×4 (00:31→20:48)
[2021-08-17] MEDS: diphenhydrAMINE 50 MG/ML VIAL IVP PRN ×4 (00:32→20:47)
[2021-08-17] MEDS: PROCHLORPERAZINE 5 MG TABLET. PO SCH ×4 (00:32→18:27)
[2021-08-17] MEDS: ZOLPIDEM 5 MG TABLET. PO PRN (00:37)
[2021-08-17 05:07] VITALS: BP 133/77
[2021-08-17] MEDS: KETOROLAC 30 MG/ML VIAL. IVP PRN ×3 (05:29→18:27)
[2021-08-17] MEDS: LEVOTHYROXINE 25 MCG TABLET. PO SCH (05:29)
[2021-08-17] MEDS: IV NORMAL SALINE 1000ML BAG 1,000 ML IV SCH ×2 (05:34→18:32)
[2021-08-17 07:00] VITALS: BP 132/66
[2021-08-17] MEDS: BUDESONIDE 0.5 MG/2 ML NEBU. NEB SCH ×2 (07:16→21:11)
[2021-08-17] MEDS: IPRATRPIUM/ALBUTEROL 0.5/2.5MG 3 ML NEBU. NEB SCH ×4 (07:16→21:11)
--- NOTE | 2021-08-17 08:13 | HP ---
DATE OF SERVICE: 08/17/2021 ADMIT DATE: 08/16/2021 ADMISSION HISTORY AND PHYSICAL HISTORY OF PRESENT ILLNESS: This 50-year-old white female is well known to me from followup in the office. The patient has a history of severe migraine headaches including migraine and spasm with prior cerebrovascular accident in the past from the same. She has been battling a headache now outpatient with medications for a couple of weeks, probably to the point where she is completely nonfunctional, unable to go to work and admitted on her usual cocktail developed by Neurology over the years to break this and get her on her way. PAST MEDICAL HISTORY: Remarkable for migraines with CVA related to the same, history of increased intracranial pressure with pseudotumor cerebri, diabetes. MEDICATIONS: Brought by the patient listed on computer have been addressed. ALLERGIES: She has no known drug allergies. SOCIAL HISTORY: She is and lives at home with family. She is nonsmoker, nondrinker, does not use drugs. FAMILY HISTORY: Noncontributory. REVIEW OF SYSTEMS: Remarkable for typical migraine symptomatology with phonophobia, photophobia, nausea without vomiting, pounding headache. PHYSICAL EXAMINATION: GENERAL: She is well-developed, well-nourished female who appears uncomfortable. VITAL SIGNS: Stable. She is afebrile. HEAD, EYES, EARS, NOSE AND THROAT: Unremarkable. NECK: Supple, without adenopathy or thyromegaly. CHEST: Clear to auscultation and percussion. HEART: Regular rate and rhythm without S3, S4 or murmur. ABDOMEN: Soft, nontender, without hepatosplenomegaly or masses. EXTREMITIES: No cyanosis, clubbing, or edema. NEUROLOGIC: Remarkable for very mild expressive aphasia, which is chronic after her cerebrovascular accident. ASSESSMENT: 1. Intractable migraine. 2. Other problems listed above. PLAN: She has been started on a protocol for her headaches. She still feels like she is very severe at times, does get some relief from the morphine, has not seen much this time from Toradol, but we will continue present regimen as she has some improvement, was able to get 3-4 hours of sleep last night. LEONA DR: Amber TID: [id number]
[2021-08-17] MEDS: LOSARTAN POTASSIUM 50 MG TABLET. PO SCH (08:29)
[2021-08-17] MEDS: buPROPion SR 150 MG TABLET.SA PO SCH ×2 (08:29→20:12)
[2021-08-17] MEDS: PREGABALIN 75 MG CAPSULE PO SCH ×2 (08:29→20:11)
[2021-08-17] MEDS: metFORMIN 500 MG TABLET PO SCH ×2 (08:29→18:27)
[2021-08-17] MEDS: VENLAFAXINE 75 MG TABLET. PO SCH ×3 (08:29→20:11)
[2021-08-17] MEDS: PANTOPRAZOLE 40 MG TABLET.DR. PO SCH (08:29)
[2021-08-17] MEDS ORDERED: NON FORMULARY ITEM (Fluticasone/Umeclidin/Vilanter (Trelegy Ellipta 100-62.5-25) 1 PUFF) PO SCH (09:00)
[2021-08-17 11:03] VITALS: BP 133/67
--- NOTE | 2021-08-17 11:44 | NUR ---
SW following. Discussed with RN, pt from home, room air, ada diet. RN advised no SW needs at this time. SW will continue to follow.
[2021-08-17 15:00] VITALS: BP 150/82
--- NOTE | 2021-08-17 15:53 | NUR ---
Patient refused 1200 and 1600 breathing treatments. Patient would like Duonebs to be BID, not QID. Spoke with Barbara BRANNON about changing frequency.
[2021-08-17 19:00] VITALS: BP 150/69
[2021-08-17] MEDS: AMITRIPTYLINE HCL 25 MG TABLET. PO SCH (20:11)
[2021-08-17] MEDS: PRAMIPEXOLE 0.25 MG TABLET. PO SCH (20:12)
[2021-08-17 23:00] VITALS: BP 174/79
[2021-08-17] MEDS: diazePAM 5 MG TABLET PO PRN (23:18)
[2021-08-18] VITALS (7 sets, daily range): BP systolic 121–158; BP diastolic 57–81
[2021-08-18] MEDS: KETOROLAC 30 MG/ML VIAL. IVP PRN ×4 (00:41→20:57)
[2021-08-18] MEDS: diphenhydrAMINE 50 MG/ML VIAL IVP PRN ×3 (03:44→18:41)
[2021-08-18] MEDS: MORPHINE SULFATE 4 MG/ML INJ. IV PRN ×4 (03:45→18:41)
[2021-08-18] MEDS: PROCHLORPERAZINE 5 MG TABLET. PO SCH ×4 (06:40→17:44)
[2021-08-18] MEDS: LEVOTHYROXINE 25 MCG TABLET. PO SCH (06:40)
[2021-08-18] MEDS: PANTOPRAZOLE 40 MG TABLET.DR. PO SCH (06:40)
[2021-08-18] MEDS: IPRATRPIUM/ALBUTEROL 0.5/2.5MG 3 ML NEBU. NEB SCH ×2 (07:21→20:33)
[2021-08-18] MEDS: BUDESONIDE 0.5 MG/2 ML NEBU. NEB SCH ×2 (07:21→20:33)
[2021-08-18] MEDS: HYDROcodone/APAP 5/325MG 1 TAB TABLET PO PRN (08:00)
[2021-08-18] MEDS: VENLAFAXINE 75 MG TABLET. PO SCH ×3 (10:03→20:57)
[2021-08-18] MEDS: metFORMIN 500 MG TABLET PO SCH ×2 (10:04→17:44)
[2021-08-18] MEDS: LOSARTAN POTASSIUM 50 MG TABLET. PO SCH (10:05)
[2021-08-18] MEDS: PREGABALIN 75 MG CAPSULE PO SCH ×2 (10:05→20:58)
[2021-08-18] MEDS: buPROPion SR 150 MG TABLET.SA PO SCH ×2 (10:05→20:58)
[2021-08-18] MEDS: IV NORMAL SALINE 1000ML BAG 1,000 ML IV SCH (10:10)
--- NOTE | 2021-08-18 20:12 | PN ---
DATE: 08/18/2021 LOCATION: She is in room 569. SUBJECTIVE: This 50-year-old female remains hospitalized with intractable migraine. She was able to get some sleep last night, but does not feel like the headache is lessened significantly since admission. She is wondering about the change in medication. OBJECTIVE: VITAL SIGNS: Stable. She is afebrile. GENERAL: She is awake and alert. CHEST: Clear. HEART: Regular. ABDOMEN: Benign. NEUROLOGIC: Nonfocal. IMPRESSION: Intractable migraine. PLAN: Continue present regimen, but will increase the morphine dose slightly. KETAN DR: Amber TID: [id number]
[2021-08-18] MEDS: ZOLPIDEM 5 MG TABLET. PO PRN (20:56)
[2021-08-18] MEDS: AMITRIPTYLINE HCL 25 MG TABLET. PO SCH (20:57)
[2021-08-18] MEDS: PRAMIPEXOLE 0.25 MG TABLET. PO SCH (20:57)
[2021-08-19] MEDS: PROCHLORPERAZINE 5 MG TABLET. PO SCH ×4 (00:41→17:43)
[2021-08-19] MEDS: IV NORMAL SALINE 1000ML BAG 1,000 ML IV SCH ×2 (00:41→12:54)
[2021-08-19] MEDS: diphenhydrAMINE 50 MG/ML VIAL IVP PRN ×4 (00:41→19:12)
[2021-08-19] MEDS: MORPHINE SULFATE 4 MG/ML INJ. IV PRN ×4 (00:42→19:12)
[2021-08-19] MEDS: KETOROLAC 30 MG/ML VIAL. IVP PRN ×4 (04:08→23:29)
[2021-08-19 04:29] VITALS: BP 124/67
[2021-08-19] MEDS: PANTOPRAZOLE 40 MG TABLET.DR. PO SCH (06:38)
[2021-08-19] MEDS: LEVOTHYROXINE 25 MCG TABLET. PO SCH (06:38)
[2021-08-19 07:00] VITALS: BP 141/74
[2021-08-19] MEDS: BUDESONIDE 0.5 MG/2 ML NEBU. NEB SCH ×2 (08:02→20:22)
[2021-08-19] MEDS: IPRATRPIUM/ALBUTEROL 0.5/2.5MG 3 ML NEBU. NEB SCH ×2 (08:02→20:22)
[2021-08-19] MEDS: buPROPion SR 150 MG TABLET.SA PO SCH ×2 (08:22→21:20)
[2021-08-19] MEDS: metFORMIN 500 MG TABLET PO SCH ×2 (08:22→17:43)
[2021-08-19] MEDS: VENLAFAXINE 75 MG TABLET. PO SCH ×3 (08:22→21:20)
[2021-08-19] MEDS: PREGABALIN 75 MG CAPSULE PO SCH ×2 (08:22→21:20)
[2021-08-19] MEDS: LOSARTAN POTASSIUM 50 MG TABLET. PO SCH (08:23)
[2021-08-19 11:00] VITALS: BP 135/61
--- NOTE | 2021-08-19 11:55 | PN ---
DATE: 08/19/2021 LOCATION: She is in room 569. SUBJECTIVE: This 50-year-old female remains hospitalized with intractable migraine headache. Pain has decreased to 5 this morning. She has had some hypoxia this morning and increased cough. She is coughing up some what she describes as neon green phlegm. OBJECTIVE: VITAL SIGNS: Stable. She is afebrile. GENERAL: She is awake and alert. CHEST: Clear. HEART: Regular. ABDOMEN: Benign. NEUROLOGIC: Nonfocal. IMPRESSION: 1. Intractable migraine. 2. Cough some desaturations. PLAN: Chest x-ray. COVID rapid test with nursing to call me results with plans to follow there. CHRISTIAN DR: Amber TID: [id number]
--- NOTE | 2021-08-19 14:19 | RAD ---
PA and lateral chest. HISTORY: Increased cough PA and lateral views were taken of the chest. Heart is normal in size. There is blunting of the costo phrenic angle on the left suggesting a small effusion. There is slight hazy left lung infiltrates. IMPRESSION: 1. Mild left lower lobe infiltrates. 2. Small left pleural effusion. Electronically signed by: Rj Schofield MD (08/19/2021 2:17 PM) [facility]
[2021-08-19] MEDS: HYDROcodone/APAP 5/325MG 1 TAB TABLET PO PRN ×2 (14:24→21:20)
[2021-08-19 15:00] VITALS: BP 164/76
[2021-08-19] MEDS: cefTRIAXone IV Push 1 GM VIAL. IVP SCH (17:43)
[2021-08-19 19:00] VITALS: BP 112/61
[2021-08-19] MEDS: PRAMIPEXOLE 0.25 MG TABLET. PO SCH (21:20)
[2021-08-19] MEDS: diazePAM 5 MG TABLET PO PRN (21:20)
[2021-08-19] MEDS: AMITRIPTYLINE HCL 25 MG TABLET. PO SCH (21:20)
[2021-08-19] MEDS: ZOLPIDEM 5 MG TABLET. PO PRN (21:21)
[2021-08-19 23:40] VITALS: BP 110/52
[2021-08-20] MEDS: diphenhydrAMINE 50 MG/ML VIAL IVP PRN ×3 (02:07→19:50)
[2021-08-20] MEDS: IV NORMAL SALINE 1000ML BAG 1,000 ML IV SCH ×2 (02:07→14:50)
[2021-08-20] MEDS: MORPHINE SULFATE 4 MG/ML INJ. IV PRN ×4 (02:08→23:28)
[2021-08-20 03:20] VITALS: BP 106/61
[2021-08-20] MEDS: KETOROLAC 30 MG/ML VIAL. IVP PRN ×4 (06:11→19:50)
[2021-08-20] MEDS: PROCHLORPERAZINE 5 MG TABLET. PO SCH ×4 (06:11→19:50)
[2021-08-20] MEDS: LEVOTHYROXINE 25 MCG TABLET. PO SCH (06:11)
[2021-08-20 07:00] VITALS: BP 147/78
[2021-08-20] MEDS: BUDESONIDE 0.5 MG/2 ML NEBU. NEB SCH ×2 (07:12→21:01)
[2021-08-20] MEDS: IPRATRPIUM/ALBUTEROL 0.5/2.5MG 3 ML NEBU. NEB SCH ×2 (07:12→21:01)
--- NOTE | 2021-08-20 08:39 | PDOC ---
PULMONARY PROGRESS NOTES DATE: 08/20/21 TIME: 08:39 Vitals Vital Signs Date Time Temp Pulse Resp B/P (MAP) Pulse Ox O2 Delivery O2 Flow Rate FiO2 08/20/21 07:13 97 Nasal Cannula 2.0 08/20/21 03:20 98.1 69 18 106/61 (76) 98.1 General: Alert, No acute distress HEENT: Other Lungs: Clear Cardiovascular: S1, S2 Abdomen: Soft Extremities: No Edema Labs Laboratory Tests Test 08/19/21 11:45 SARS-CoV-2 Antigen (Rapid) Negative (NEGATIVE) Laboratory Tests Test 08/19/21 11:45 SARS-CoV-2 Antigen (Rapid) Negative (NEGATIVE) Medications Active Scripts Medications Dose Route/Sig Max Daily Dose Days Date Category Lyrica (Pregabalin) 150 Mg Capsule 1 Cap PO BID 08/16/21 Reported Celebrex (Celecoxib) 200 Mg Capsule 200 Mg PO BID 30 08/16/21 Reported D3-50 (Cholecalciferol (Vitamin D3)) 50,000 Unit Capsule 1 Cap PO WEEKLY 28 08/16/21 Reported Ozempic (Semaglutide) 1 Mg/0.75 Ml Pen.injctr 1 Mg SQ WEEKLY 08/16/21 Reported Bystolic (Nebivolol) 10 Mg Tablet 10 Mg PO DAILY 08/16/21 Reported Compazine (Prochlorperazine Maleate) 10 Mg Tablet 1 Tab PO Q6HRS 30 04/01/21 Reported Ketorolac Tromethamine 10 Mg Tablet 30 Mg PO PRN Q6HRS PRN 04/01/21 Reported Imitrex (Sumatriptan Succinate) 100 Mg Tablet 1 Tab PO UD 04/01/21 Reported Hydrocodone-Apap 5-325 (Hydrocodone Bit/Acetaminophen) 1 Tab Tablet 1 Tab PO PRN Q6HRS PRN 03/30/21 Reported Diazepam 10 Mg Tablet 10 Mg PO PRN TID PRN 03/30/21 Reported Ambien (Zolpidem Tartrate) 10 Mg Tablet 10 Mg PO HS PRN 03/30/21 Reported Venlafaxine Hcl 75 Mg Tablet 3 Tab PO DAILY 03/30/21 Reported Bupropion Hcl Sr (Bupropion Hcl) 150 Mg Tablet.er 150 Mg PO BID 05/24/20 Reported Trelegy Ellipta 100-62.5-25 (Fluticasone/Umeclidin/Vilanter) 1 Each Blst.w.dev 1 Puff PO DAILY 05/24/20 Reported Tizanidine Hcl 4 Mg Tablet 1 Tab PO Q8HRS PRN 05/24/20 Reported Mirapex (Pramipexole Di-Hcl) 0.25 Mg Tablet 1 Tab PO QHS 11/23/19 Reported Irbesartan 300 Mg Tablet 150 Mg PO DAILY 11/23/19 Reported Levothyroxine Sodium 25 Mcg Tablet 1 Tab PO DAILY 09/03/18 Reported Amitriptyline Hcl 50 Mg Tablet 1 Tab PO QHS 09/03/18 Reported Omeprazole 40 Mg Capsule. 1 Cap PO DAILY 03/27/15 Reported Metformin Hcl 1,000 Mg Tablet 1,000 Mg PO BID 01/04/14 Reported Impression . Abnormal chest x-ray, suspect mainly atelectasis Initiate incentive spirometry We will discuss with LESLIE Cagle MD Aug 20, 2021 08:39
[2021-08-20] MEDS: VENLAFAXINE 75 MG TABLET. PO SCH ×3 (09:47→19:49)
[2021-08-20] MEDS: buPROPion SR 150 MG TABLET.SA PO SCH ×2 (09:47→19:49)
[2021-08-20] MEDS: metFORMIN 500 MG TABLET PO SCH ×2 (09:47→16:57)
[2021-08-20] MEDS: LOSARTAN POTASSIUM 50 MG TABLET. PO SCH (09:48)
[2021-08-20] MEDS: PANTOPRAZOLE 40 MG TABLET.DR. PO SCH (09:48)
[2021-08-20] MEDS: PREGABALIN 75 MG CAPSULE PO SCH ×2 (09:49→19:49)
[2021-08-20 11:00] VITALS: BP 143/82
[2021-08-20] MEDS: LACTOBACILLUS RHAMNOSUS GG 1 CAPSULE. PO SCH ×2 (12:23→19:48)
--- NOTE | 2021-08-20 13:18 | NUR ---
SS following for discharge planning. SS reviewed pt chart and discussed with pt RN. Pt is from home with spouse and is currently requiring oxygen at two liters nasal canula. Pt on IV Rocephin. COVID19 negative. Discharge plan is currently to home when medically ready for discharge. SS will continue to follow for discharge planning.
--- NOTE | 2021-08-20 14:36 | CONS ---
DATE OF CONSULTATION: 08/20/2021 ATTENDING PHYSICIAN: Sam Faustin MD REASON FOR CONSULTATION: The patient is seen in pulmonary consultation at the request of Dr. Faustin for abnormal chest x-ray. HISTORY OF PRESENT ILLNESS: The patient is a 50-year-old who has a history of migraine headaches. She was having great difficulty controlling her symptoms at home. She failed outpatient treatment. She was admitted. Part of her workup included a chest x-ray as reviewed. There is mild left lower lobe infiltrate with a very, very small effusion on the left. I was asked to see her in consultation. The patient used to smoke. In the past, she used Trilogy at home, currently is not utilizing anything. She is not vaccinated for COVID-19. She denies any productive cough, wheezing, shortness of breath. PAST MEDICAL HISTORY: CVA related to migraines. She has had previous intracranial pressures that were elevated, compatible with pseudotumor cerebri. She has a history of diabetes. MEDICATIONS: List reviewed. ALLERGIES: No known drug allergies. SOCIAL HISTORY: She is a nonsmoker. FAMILY HISTORY: Noncontributory. REVIEW OF SYSTEMS: As indicated above, otherwise a 10-point system was reviewed and negative. PHYSICAL EXAMINATION: VITAL SIGNS: Stable. O2 saturation was greater than 92%, currently on room air. HEENT: Eyes: The sclerae were nonicteric. NECK: Jugular venous distention was not elevated. No lymphadenopathy. CHEST: Full expansion. LUNGS: Adequate flow, no wheezes. CARDIOVASCULAR: Regular rate and rhythm with S1, S2, no S3. ABDOMEN: Soft. EXTREMITIES: No clubbing, cyanosis or edema. LABORATORY DATA: Labs were reviewed. SARS-CoV-2 rapid test was negative. IMPRESSION: 1. Abnormal x-ray, suspect mainly atelectasis, clinically, I doubt this is related to pneumonia. 2. Migraine headaches per PCP. 3. Negative SARS-CoV-2 rapid test. PLAN: 1. Continue current support. 2. We will discuss with Dr. Faustin. SS/[facility] – [place], [place] : RJ/gil TID: [id number]
[2021-08-20 15:00] VITALS: BP 157/83
[2021-08-20] MEDS: cefTRIAXone IV Push 1 GM VIAL. IVP SCH (16:57)
[2021-08-20 19:00] VITALS: BP 136/66
[2021-08-20] MEDS: diazePAM 5 MG TABLET PO PRN (19:48)
[2021-08-20] MEDS: ZOLPIDEM 5 MG TABLET. PO PRN (19:48)
[2021-08-20] MEDS: PRAMIPEXOLE 0.25 MG TABLET. PO SCH (19:49)
[2021-08-20] MEDS: AMITRIPTYLINE HCL 25 MG TABLET. PO SCH (19:49)
[2021-08-20 23:00] VITALS: BP 160/85
--- NOTE | 2021-08-21 02:00 | PN ---
DATE: 08/20/2021 LOCATION: She is in room 569. SUBJECTIVE: This 50-year-old white female admitted with intractable migraine headache. This has started to decrease when she developed cough, desaturations and had to go on some oxygen, was found to have left lower lobe infiltrate with small pleural effusion and COVID negative yesterday. She was started on Rocephin and I am going to ask for Pulmonary opinion. OBJECTIVE: VITAL SIGNS: Stable. She is afebrile. GENERAL: She is awake and alert. CHEST: Clear. HEART: Regular. ABDOMEN: Benign. NEUROLOGIC: Nonfocal. O2 sats are better today. IMPRESSION: 1. Intractable migraine. 2. Questionable pneumonia. PLAN: Continue Rocephin. Pulmonary consult. Continue treatment for headache. Discharge when Pulmonary feels safe from a pneumonia standpoint. EMILY/LOLITA/LEONIDES DR: Amber TID: [id number]
[2021-08-21 03:00] VITALS: BP 146/79
[2021-08-21] MEDS: IV NORMAL SALINE 1000ML BAG 1,000 ML IV SCH (03:44)
[2021-08-21] MEDS: diazePAM 5 MG TABLET PO PRN (05:15)
[2021-08-21] MEDS: LEVOTHYROXINE 25 MCG TABLET. PO SCH (05:15)
[2021-08-21] MEDS: PROCHLORPERAZINE 5 MG TABLET. PO SCH ×2 (05:16)
[2021-08-21] MEDS: PANTOPRAZOLE 40 MG TABLET.DR. PO SCH (05:16)
[2021-08-21 07:00] VITALS: BP 133/95
[2021-08-21] MEDS: BUDESONIDE 0.5 MG/2 ML NEBU. NEB SCH (07:17)
[2021-08-21] MEDS: IPRATRPIUM/ALBUTEROL 0.5/2.5MG 3 ML NEBU. NEB SCH (07:17)
--- NOTE | 2021-08-21 08:39 | PDOC ---
PULMONARY PROGRESS NOTES DATE: 08/21/21 TIME: 08:39 Vitals Vital Signs Date Time Temp Pulse Resp B/P (MAP) Pulse Ox O2 Delivery O2 Flow Rate FiO2 08/21/21 07:18 95 Nasal Cannula 2.0 08/21/21 03:00 98.5 79 18 146/79 (101) 98.5 General: Alert, No acute distress HEENT: Other Lungs: Clear Cardiovascular: S1, S2 Abdomen: Soft Extremities: No Edema Labs Laboratory Tests Test 08/19/21 11:45 SARS-CoV-2 Antigen (Rapid) Negative (NEGATIVE) Medications Active Scripts Medications Dose Route/Sig Max Daily Dose Days Date Category Lyrica (Pregabalin) 150 Mg Capsule 1 Cap PO BID 08/16/21 Reported Celebrex (Celecoxib) 200 Mg Capsule 200 Mg PO BID 30 08/16/21 Reported D3-50 (Cholecalciferol (Vitamin D3)) 50,000 Unit Capsule 1 Cap PO WEEKLY 28 08/16/21 Reported Ozempic (Semaglutide) 1 Mg/0.75 Ml Pen.injctr 1 Mg SQ WEEKLY 08/16/21 Reported Bystolic (Nebivolol) 10 Mg Tablet 10 Mg PO DAILY 08/16/21 Reported Compazine (Prochlorperazine Maleate) 10 Mg Tablet 1 Tab PO Q6HRS 30 04/01/21 Reported Ketorolac Tromethamine 10 Mg Tablet 30 Mg PO PRN Q6HRS PRN 04/01/21 Reported Imitrex (Sumatriptan Succinate) 100 Mg Tablet 1 Tab PO UD 04/01/21 Reported Hydrocodone-Apap 5-325 (Hydrocodone Bit/Acetaminophen) 1 Tab Tablet 1 Tab PO PRN Q6HRS PRN 03/30/21 Reported Diazepam 10 Mg Tablet 10 Mg PO PRN TID PRN 03/30/21 Reported Ambien (Zolpidem Tartrate) 10 Mg Tablet 10 Mg PO HS PRN 03/30/21 Reported Venlafaxine Hcl 75 Mg Tablet 3 Tab PO DAILY 03/30/21 Reported Bupropion Hcl Sr (Bupropion Hcl) 150 Mg Tablet.er 150 Mg PO BID 05/24/20 Reported Trelegy Ellipta 100-62.5-25 (Fluticasone/Umeclidin/Vilanter) 1 Each Blst.w.dev 1 Puff PO DAILY 05/24/20 Reported Tizanidine Hcl 4 Mg Tablet 1 Tab PO Q8HRS PRN 05/24/20 Reported Mirapex (Pramipexole Di-Hcl) 0.25 Mg Tablet 1 Tab PO QHS 11/23/19 Reported Irbesartan 300 Mg Tablet 150 Mg PO DAILY 11/23/19 Reported Levothyroxine Sodium 25 Mcg Tablet 1 Tab PO DAILY 09/03/18 Reported Amitriptyline Hcl 50 Mg Tablet 1 Tab PO QHS 09/03/18 Reported Omeprazole 40 Mg Capsule. 1 Cap PO DAILY 03/27/15 Reported Metformin Hcl 1,000 Mg Tablet 1,000 Mg PO BID 01/04/14 Reported Impression . Abnormal chest x-ray, suspect mainly atelectasis Initiate incentive spirometry We will discuss with LESLIE Cagle MD Aug 21, 2021 08:39
[2021-08-21] MEDS: PREGABALIN 75 MG CAPSULE PO SCH (08:40)
[2021-08-21] MEDS: buPROPion SR 150 MG TABLET.SA PO SCH (08:40)
[2021-08-21] MEDS: LACTOBACILLUS RHAMNOSUS GG 1 CAPSULE. PO SCH (08:40)
[2021-08-21] MEDS: VENLAFAXINE 75 MG TABLET. PO SCH (08:41)
[2021-08-21] MEDS: metFORMIN 500 MG TABLET PO SCH (08:41)
[2021-08-21 08:42] VITALS: BP 146/79
[2021-08-21] MEDS: LOSARTAN POTASSIUM 50 MG TABLET. PO SCH (08:42)
[2021-08-21] MEDS ORDERED: CEFD300C PO (08:47)
[2021-08-21] MEDS: diphenhydrAMINE 50 MG/ML VIAL IVP PRN (08:49)
[2021-08-21] MEDS: MORPHINE SULFATE 4 MG/ML INJ. IV PRN (08:50)
--- NOTE | 2021-08-21 09:41 | DS ---
DATE OF DISCHARGE: 08/21/2021 PRIMARY DIAGNOSIS: Intractable migraine headache. ADDITIONAL DIAGNOSES: 1. Left lower lobe pneumonia with some hypoxia during stay. 2. Diabetes. CHIEF COMPLAINT AND HISTORY OF PRESENT ILLNESS: This 50-year-old female admitted with intractable headache and inability to control at home. SUMMARY OF STAY: The patient was admitted, put on her usual migraine cocktail. Was improving slowly with the same and developed desaturations and a cough with purulent phlegm. Had a chest x-ray showing some left lower lobe infiltrate with possible effusion. Was started on antibiotics with rapid improvement. Pulmonary saw her, felt it was safe for discharge on oral antibiotics and this was accomplished on the day of dismissal. DISPOSITION: The patient is discharged to home. Regular diet. Activity as tolerated. Office in 1 week. Discharge meds are her regular home meds plus Omnicef 300 b.i.d. for the next week. VANESSA DR: Amber TID: [id number]
--- NOTE | 2021-08-21 10:28 | NUR ---
SS following up with discharge planning. SS reviewed pt chart and discussed with pt RN. Pt is currently on room air. COVID19 negative. IV antibiotic switched to PO. Discharge order on the chart for home with self care.
--- NOTE | 2021-08-21 10:50 | NUR ---
DISCHARGE INSTRUCTIONS GIVEN, QUESTIONS AND CONCERNS ANSWERED, PATIENT VERBALIZED UNDERSTANDING OF DISCHARGE INFORMATION INCLUDING TAKING ALL MEDICATIONS INSTRUCTED AND FOLLOWING UP WITH DR. DONOHUE IN 1 WEEK. PRESCRIPTION FOR CEFDINIR CALLED TO PATIENTS' PHARMACY.
--- NOTE | 2021-08-21 11:01 | NUR ---
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
[2021-08-22] MEDS ORDERED: CELECOXIB 100 MG CAPSULE. PO SCH (09:00)
== END 2021-08-21 11:01 | disposition home or self-care (01) | DRG 102 ==
LOC: 5 SOUTH 15:15
PROVIDERS: ADMIT Family Medicine; ATTEND Family Medicine
DX: G43.919 Migraine, unspecified, intractable, without status migrainosus (principal); J15.6 Pneumonia due to other Gram-negative bacteria; J90 Pleural effusion, not elsewhere classified; E11.9 Type 2 diabetes mellitus without complications; Z20.822 Contact with and (suspected) exposure to COVID-19; Z87.891 Personal history of nicotine dependence; I69.398 Other sequelae of cerebral infarction; I69.320 Aphasia following cerebral infarction; Z79.899 Other long term (current) drug therapy; R09.02 Hypoxemia
CPT/HCPCS: 71046; 87426; 94640; 94760; G0238; J0696; J1200; J1885; J2270; J7030; G0378; J7626; Q0164

== ENCOUNTER 2022-02-27 17:27 | Inpatient (IN) | payer BC ==
[~2022-02-27] VITALS: Ht 167.6 cm; Wt 137.1 kg
[~2022-02-27 17:27] MED LIST changes: +BYSTOLIC10 MG PO; +CEFD300C PO; +CHOL500021 PO; +PREG150C PO; +SEMA1PEN3 SQ; -VENL150C PO; +VENL150C3 PO
[2022-02-27] MEDS ORDERED: KETOROLAC TROMETHAMINE 10 MG TABLET PO PRN (22:15)
[2022-02-27] MEDS ORDERED: diphenhydrAMINE 50 MG/ML VIAL IVP PRN (22:30)
[2022-02-27] MEDS ORDERED: PROCHLORPERAZINE 5 MG TABLET. PO PRN (22:45)
[2022-02-27 23:00] VITALS: BP 122/56
[2022-02-27] MEDS: PRAMIPEXOLE 0.25 MG TABLET. PO SCH (23:00)
[2022-02-27] MEDS: CELECOXIB 100 MG CAPSULE. PO SCH (23:00)
[2022-02-27] MEDS: METOPROLOL TART IMMED RELEASE 50 MG TABLET. PO SCH (23:00)
[2022-02-27] MEDS: buPROPion SR 150 MG TABLET.SA PO SCH (23:00)
[2022-02-27] MEDS: AMITRIPTYLINE HCL 25 MG TABLET. PO SCH (23:00)
[2022-02-27] MEDS: PREGABALIN 75 MG CAPSULE PO SCH (23:00)
[2022-02-28] MEDS: IV NORMAL SALINE 1000ML BAG 1,000 ML IV SCH ×2 (00:57→08:30)
[2022-02-28] MEDS: KETOROLAC 30 MG/ML VIAL. IVP PRN ×4 (00:58→19:52)
[2022-02-28] MEDS: MORPHINE SULFATE 4 MG/ML INJ. IV PRN ×6 (00:58→21:02)
[2022-02-28] MEDS: ZOLPIDEM 5 MG TABLET. PO PRN (00:59)
[2022-02-28] MEDS: diphenhydrAMINE 50 MG/ML VIAL IVP PRN ×5 (04:38→20:58)
[2022-02-28 07:00] VITALS: BP 101/46
[2022-02-28] MEDS: PANTOPRAZOLE 40 MG TABLET.DR. PO SCH (07:30)
[2022-02-28] MEDS: BUDESONIDE 0.5 MG/2 ML NEBU. NEB SCH ×2 (07:54→20:13)
[2022-02-28] MEDS: IPRATRPIUM/ALBUTEROL 0.5/2.5MG 3 ML NEBU. NEB SCH ×4 (07:54→20:13)
[2022-02-28] MEDS: buPROPion SR 150 MG TABLET.SA PO SCH ×2 (08:47→20:51)
[2022-02-28] MEDS: metFORMIN 500 MG TABLET PO SCH ×2 (08:47→16:54)
[2022-02-28] MEDS: PREGABALIN 75 MG CAPSULE PO SCH ×2 (08:47→20:51)
[2022-02-28] MEDS: METOPROLOL TART IMMED RELEASE 50 MG TABLET. PO SCH ×2 (08:48→20:51)
[2022-02-28] MEDS: CELECOXIB 100 MG CAPSULE. PO SCH ×2 (08:48→20:53)
[2022-02-28] MEDS: LEVOTHYROXINE 25 MCG TABLET. PO SCH (08:48)
[2022-02-28] MEDS: VENLAFAXINE 75 MG TABLET. PO SCH (08:51)
[2022-02-28] MEDS: LOSARTAN POTASSIUM 50 MG TABLET. PO SCH (08:51)
--- NOTE | 2022-02-28 10:13 | NUR ---
original surgical dressing removed. it was saturated with large amount of serosanguineous drainage. appears to bleeding along the incisional line. 10 pack 4x4's 2 abd kerlix and mesh applied. aspirin held until Dr. Arango observes. PT to go easy on exercise Addendum: 02/28/22 at 1754 by KAYLIE ADDISON RN charted on the wrong patient
--- NOTE | 2022-02-28 10:16 | HP ---
DATE OF SERVICE: 02/28/2022 ADMIT DATE: 02/27/2022 CHIEF COMPLAINT AND HISTORY OF PRESENT ILLNESS: This 51-year-old female is well known to me from followup in the office. The patient admitted at this point in time with intractable headache after 7 days of therapy at home with no avail. PAST MEDICAL HISTORY: Remarkable for diabetes, polycystic ovarian disease, prior CVA with mild expressive aphasia, felt due to migraine and spasm. Pseudotumor cerebri with a history of increased intracranial pressures, history of pericarditis, hypertension, history of DVT. MEDICATIONS: Brought with the patient, listed on computer and have been addressed. ALLERGIES: She has no known drug allergies. 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 Smokes on a regular basis, but denies any alcohol or drug use. FAMILY HISTORY: Noncontributory. REVIEW OF SYSTEMS: Remarkable for headache with photophobia, phonophobia, nausea and to date, no significant relief of the headache with her usual migraine cocktail. PHYSICAL EXAMINATION: GENERAL: She is a well-developed, well-nourished white female, who appears uncomfortable. VITAL SIGNS: Stable. She is afebrile. She is awake and alert. CHEST: Clear to auscultation. HEART: Regular rate and rhythm. ABDOMEN: Soft, nontender without hepatosplenomegaly or mass. EXTREMITIES: Without cyanosis, clubbing or edema. NEUROLOGIC: Nonfocal, although she does have very mild expressive aphasic speechless issues. ASSESSMENT: 1. Severe migraine with failed outpatient treatment. 2. Multiple other problems listed above. PLAN: Continue present cocktail. She does have a history of iron deficiency anemia. With us, we are trying to send her to see GI. She does state that GI told her that any procedures would need to be done inpatient because of her poor IV access and we will ask GI to see her during the stay, whether it is something they can do during this stay or figure out how to schedule it following the stay. I am also going to check a cortisol level as she complains of unexplained weight gain despite being on a very good diet. GILDARDO/EVANGELINA CHRISTIANSON: Amber TID: [id number]
[2022-02-28 11:00] VITALS: BP 115/54
[2022-02-28 11:53] LABS: ALBUMIN 2.8 g/dL (3.4-5.0); ALBUMIN/GLOBULIN RATIO 0.7 (1.0-1.7); CALCIUM 8.7 mg/dL (8.5-10.1); CREATININE 0.7 mg/dL (0.6-1.0); GFR 88.6; POTASSIUM 3.9 mmol/L (3.5-5.1); TOTAL BILIRUBIN 0.2 mg/dL (0.2-1.0); TOTAL PROTEIN 6.6 g/dL (6.4-8.2)
--- NOTE | 2022-02-28 13:28 | PDOC2 ---
CONSULT Date of Consult Date of Consult DATE: 02/28/22 TIME: 13:19 Reason for Consult Reason for Consult: Iron deficiency anemia Identification/Chief Complaint Chief Complaint Headaches History of Present Illness Reason for Visit: 51 year old Female is seen in consultation with anemia iron deficient. Prior egd and colonoscopy last year did reveal hiatal hernia as well as tubular adenomas fo the colon that were removed. No visible bleeding is noted. No menstrual periods have been noted since her ablation over five years ago. She does have ice pica at this time and has gained twenty-five pounds despite persistent anemi a. No family history of celiac disease or IBD is elicited. No extra-intestinal manifestations of IBD or celiac are noted. With the continued problems, she requests further evaluation. Past Medical History Cardiovascular: CHF, HTN, Hyperlipidemia, Other Pulmonary: Bronchitis, Pneumonia CENTRAL NERVOUS SYSTEM: CVA, Migraine GI: GERD, Peptic Ulcer disease Heme/Onc: Iron deficiency Anemia Hepatobiliary: Cholelithiasis Psych: Anxiety, Depression Musculoskeletal: low back pain, Stiffness Infectious disease: No pertinent hx, Other Endocrine: Diabetes Past Surgical History Past Surgical History: , Other, No pertinent history Family History Family History: Cancer, Coronary Artery Disease, Depression Social History ALCOHOL: occassional Drugs: None Lives: with Family Domestic Violence: Neg Current Medications Current Medications Current Medications Acetaminophen/ Hydrocodone Bitart (Lortab 5/325) 1 tab PRN Q6HRS PRN PO MODERATE PAIN 4-6; Start 02/27/22 at 22:15 Ketorolac Tromethamine (Toradol) 10 mg PRN Q6HRS PRN PO HEADACHE; Start 02/27/22 at 22:15; Stop 03/04/22 at 22:14 Levothyroxine Sodium (Synthroid) 25 mcg DAILY06 PO Last administered on 02/28/22at 08:48; Start 02/28/22 at 06:00 Pramipexole Dihydrochloride (miraPEX) 0.25 mg QHS PO ; Start 02/27/22 at 23:00 Sumatriptan Succinate (Imitrex) 100 mg PRN 1X PRN PO MIGRAINE HEADACHE; Start 02/27/22 at 22:15 Venlafaxine HCl (Effexor) 225 mg DAILY PO Last administered on 02/28/22at 08:51; Start 02/28/22 at 09:00 Amitriptyline HCl (Elavil) 50 mg QHS PO ; Start 02/27/22 at 23:00 Bupropion HCl (Wellbutrin Sr) 150 mg BID PO Last administered on 02/28/22 08:47; Start 02/27/22 at 23:00 Celecoxib (CeleBREX) 200 mg BID PO Last administered on 02/28/22at 08:48; Start 02/27/22 at 23:00 Ergocalciferol (Vitamin D2) 50,000 unit WEEKLY PO ; Start 03/06/22 at 09:00 Diazepam (Valium) 10 mg PRN TID PRN PO ANXIETY / AGITATION; Start 02/27/22 at 22:45 Budesonide (Pulmicort) 0.5 mg RTBID NEB Last administered on 02/28/22 07:54; Start 02/28/22 at 08:00 Losartan Potassium (Cozaar) 100 mg DAILY PO Last administered on 02/28/22 08:51; Start 02/28/22 at 09:00 Metformin HCl (Glucophage) 1,000 mg BIDWMEALS PO Last administered on 02/28/22 08:47; Start 02/28/22 at 08:00 Metoprolol Tartrate (Lopressor) 50 mg BID PO Last administered on 02/28/22 08:48; Start 02/27/22 at 23:00 Pantoprazole Sodium (Protonix) 40 mg DAILYAC PO Last administered on 02/28/22at 07:30; Start 02/28/22 at 07:30 Pregabalin (Lyrica) 150 mg BID PO Last administered on 02/28/22at 08:47; Start 02/27/22 at 23:00 Prochlorperazine Maleate (Compazine) 10 mg PRN Q6HRS PRN PO NAUSEA/VOMITING; Start 02/27/22 at 22:45 Non-Formulary Medication (Semaglutide (Ozempic)) 1 mg WEEKLY SQ ; Start 03/06/22 at 09:00; Status UNV Zolpidem Tartrate (Ambien) 5 mg PRN QHS PRN PO INSOMNIA, MAY REPEAT X1 Last administered on 02/28/22at 00:59; Start 02/27/22 at 22:45 Morphine Sulfate (Morphine Sulfate) 4 mg PRN Q4HRS PRN IV SEVERE PAIN 7-10 Last administered on 02/28/22 13:00; Start 02/27/22 at 22:30 Ketorolac Tromethamine (Toradol 30mg Vial) 30 mg PRN Q6HRS PRN IVP INFLAMMATION Last administered on 02/28/22 11:48; Start 02/27/22 at 22:30; Stop 03/04/22 at 22:29 Diphenhydramine HCl (Benadryl) 25 mg PRN Q6HRS PRN IVP ITCHING Last administered on 02/28/22at 00:58; Start 02/27/22 at 22:30; Stop 02/28/22 at 04:25; Status DC Sodium Chloride 1,000 ml @ 100 mls/hr Q10H IV Last administered on 02/28/22 08:30; Start 02/27/22 at 22:30 Albuterol/ Ipratropium (Duoneb) 3 ml RTQID NEB Last administered on 02/28/22 12 :32; Start 02/28/22 at 08:00 Diphenhydramine HCl (Benadryl) 25 mg PRN Q4HRS PRN IVP ITCHING Last administered on 02/28/22 13:01; Start 02/28/22 at 04:30 Active Scripts Active Reported Lyrica (Pregabalin) 150 Mg Capsule 1 Cap PO BID Celebrex (Celecoxib) 200 Mg Capsule 200 Mg PO BID 30 Days D3-50 (Cholecalciferol (Vitamin D3)) 50,000 Unit Capsule 1 Cap PO WEEKLY 28 Days Ozempic (Semaglutide) 1 Mg/0.75 Ml Pen.injctr 1 Mg SQ WEEKLY Bystolic (Nebivolol) 10 Mg Tablet 10 Mg PO DAILY Compazine (Prochlorperazine Maleate) 10 Mg Tablet 1 Tab PO Q6HRS 30 Days Ketorolac Tromethamine 10 Mg Tablet 30 Mg PO PRN Q6HRS PRN Imitrex (Sumatriptan Succinate) 100 Mg Tablet 1 Tab PO UD Hydrocodone-Apap 5-325 (Hydrocodone Bit/Acetaminophen) 1 Tab Tablet 1 Tab PO PRN Q6HRS PRN Diazepam 10 Mg Tablet 10 Mg PO PRN TID PRN Ambien (Zolpidem Tartrate) 10 Mg Tablet 10 Mg PO HS PRN Venlafaxine Hcl 75 Mg Tablet 3 Tab PO DAILY Bupropion Hcl Sr (Bupropion Hcl) 150 Mg Tablet.er 150 Mg PO BID Trelegy Ellipta 100-62.5-25 (Fluticasone/Umeclidin/Vilanter) 1 Each Blst.w.dev 1 Puff PO DAILY Mirapex (Pramipexole Di-Hcl) 0.25 Mg Tablet 1 Tab PO QHS Irbesartan 300 Mg Tablet 150 Mg PO DAILY Levothyroxine Sodium 25 Mcg Tablet 1 Tab PO DAILY Amitriptyline Hcl 50 Mg Tablet 1 Tab PO QHS Omeprazole 40 Mg Capsule.dr 1 Cap PO DAILY Metformin Hcl 1,000 Mg Tablet 1,000 Mg PO BID Allergies Allergies: Coded Allergies: No Known Drug Allergies (Unverified , 12/18/21) ROS Hematological and Lymphatic: YES: Blood Clots Cardiovascular: yes Palpitations Physical Exam General: Alert, Oriented X3 HEENT: PERRLA Lungs: Clear to auscultation Heart: Normal S1, Normal S2 Abdomen: Normal bowel sounds, Soft, No tenderness Vitals VITALS Vital Signs Date Time Temp Pulse Resp B/P (MAP) Pulse Ox O2 Delivery O2 Flow Rate FiO2 02/28/22 12:33 Room Air 02/28/22 11:00 69 18 115/54 (74) 96 02/27/22 23:00 98.3 98.3 Labs Labs Laboratory Tests Test 02/28/22 08:34 02/28/22 11:13 02/28/22 12:14 Glucose (Fingerstick) 120 mg/dL (70-99) 159 mg/dL (70-99) Sodium Level 140 mmol/L (136-145) Potassium Level 3.9 mmol/L (3.5-5.1) Chloride Level 108 mmol/L (98-107) Carbon Dioxide Level 23 mmol/L (21-32) Anion Gap 9 (6-14) Blood Urea Nitrogen 13 mg/dL (7-20) Creatinine 0.7 mg/dL (0.6-1.0) Estimated GFR (Cockcroft-Gault) 88.6 BUN/Creatinine Ratio 19 (6-20) Glucose Level 208 mg/dL (70-99) Calcium Level 8.7 mg/dL (8.5-10.1) Total Bilirubin 0.2 mg/dL (0.2-1.0) Aspartate Amino Transf (AST/SGOT) 82 U/L (15-37) Alanine Aminotransferase (ALT/SGPT) 50 U/L (14-59) Alkaline Phosphatase 88 U/L (46-116) Total Protein 6.6 g/dL (6.4-8.2) Albumin 2.8 g/dL (3.4-5.0) Albumin/Globulin Ratio 0.7 (1.0-1.7) Laboratory Tests Test 02/28/22 08:34 02/28/22 11:13 02/28/22 12:14 Glucose (Fingerstick) 120 mg/dL (70-99) 159 mg/dL (70-99) Sodium Level 140 mmol/L (136-145) Potassium Level 3.9 mmol/L (3.5-5.1) Chloride Level 108 mmol/L (98-107) Carbon Dioxide Level 23 mmol/L (21-32) Anion Gap 9 (6-14) Blood Urea Nitrogen 13 mg/dL (7-20) Creatinine 0.7 mg/dL (0.6-1.0) Estimated GFR (Cockcroft-Gault) 88.6 BUN/Creatinine Ratio 19 (6-20) Glucose Level 208 mg/dL (70-99) Calcium Level 8.7 mg/dL (8.5-10.1) Total Bilirubin 0.2 mg/dL (0.2-1.0) Aspartate Amino Transf (AST/SGOT) 82 U/L (15-37) Alanine Aminotransferase (ALT/SGPT) 50 U/L (14-59) Alkaline Phosphatase 88 U/L (46-116) Total Protein 6.6 g/dL (6.4-8.2) Albumin 2.8 g/dL (3.4-5.0) Albumin/Globulin Ratio 0.7 (1.0-1.7) Assessment/Plan Assessment/Plan Iron deficiency anemia- with priro hiatal hernia and colon polyps, SB disease leads differential AVMSs, and/or celiac disease. IBD possible as well. Plan retic/b12 levels celaic panel Sb series. o/p capsuel endoscopy if above are unhelpful as patient is requiring iron supplements and transfusions to maintain her blood counts. LENORE MI MD February 28, 2022 13:28
[2022-02-28 15:00] VITALS: BP 101/47
[2022-02-28 19:15] VITALS: BP 113/50
[2022-02-28] MEDS: PRAMIPEXOLE 0.25 MG TABLET. PO SCH (20:51)
[2022-02-28] MEDS: AMITRIPTYLINE HCL 25 MG TABLET. PO SCH (20:55)
[2022-02-28 23:03] VITALS: BP 93/42
[2022-03-01] MEDS: IV NORMAL SALINE 1000ML BAG 1,000 ML IV SCH ×3 (02:42→21:40)
[2022-03-01] MEDS: diphenhydrAMINE 50 MG/ML VIAL IVP PRN ×5 (02:50→21:57)
[2022-03-01] MEDS: MORPHINE SULFATE 4 MG/ML INJ. IV PRN ×5 (02:53→21:58)
[2022-03-01 03:03] VITALS: BP 95/53
--- NOTE | 2022-03-01 07:11 | PDOC ---
G I PROGRESS NOTE Reason for Follow-up Anemia Objective Headaches persist Physical Exam Lungs clear CV S1 S2 ABD +BS, soft, nontender Review of Relevant I have reviewed the following items génesis (where applicable) has been applied. Labs Laboratory Tests Test 02/28/22 08:34 02/28/22 11:13 02/28/22 12:14 02/28/22 20:37 Glucose (Fingerstick) 120 mg/dL (70-99) 159 mg/dL (70-99) 129 mg/dL (70-99) Red Blood Count 4.08 x10^6/uL (3.50-5.70) Absolute Reticulocyte Count 0.041 x10^6/uL (0.020-0.120) Percent Reticulocyte Count 1.0 % (0.5-2.3) Immature Reticulocyte Fraction 0.39 (0.20-0.60) Sodium Level 140 mmol/L (136-145) Potassium Level 3.9 mmol/L (3.5-5.1) Chloride Level 108 mmol/L (98-107) Carbon Dioxide Level 23 mmol/L (21-32) Anion Gap 9 (6-14) Blood Urea Nitrogen 13 mg/dL (7-20) Creatinine 0.7 mg/dL (0.6-1.0) Estimated GFR (Cockcroft-Gault) 88.6 BUN/Creatinine Ratio 19 (6-20) Glucose Level 208 mg/dL (70-99) Calcium Level 8.7 mg/dL (8.5-10.1) Total Bilirubin 0.2 mg/dL (0.2-1.0) Aspartate Amino Transf (AST/SGOT) 82 U/L (15-37) Alanine Aminotransferase (ALT/SGPT) 50 U/L (14-59) Alkaline Phosphatase 88 U/L (46-116) Total Protein 6.6 g/dL (6.4-8.2) Albumin 2.8 g/dL (3.4-5.0) Albumin/Globulin Ratio 0.7 (1.0-1.7) Vitamin B12 Level 373 pg/mL (247-911) Laboratory Tests Test 02/28/22 08:34 02/28/22 11:13 02/28/22 12:14 02/28/22 20:37 Glucose (Fingerstick) 120 mg/dL (70-99) 159 mg/dL (70-99) 129 mg/dL (70-99) Red Blood Count 4.08 x10^6/uL (3.50-5.70) Absolute Reticulocyte Count 0.041 x10^6/uL (0.020-0.120) Percent Reticulocyte Count 1.0 % (0.5-2.3) Immature Reticulocyte Fraction 0.39 (0.20-0.60) Sodium Level 140 mmol/L (136-145) Potassium Level 3.9 mmol/L (3.5-5.1) Chloride Level 108 mmol/L (98-107) Carbon Dioxide Level 23 mmol/L (21-32) Anion Gap 9 (6-14) Blood Urea Nitrogen 13 mg/dL (7-20) Creatinine 0.7 mg/dL (0.6-1.0) Estimated GFR (Cockcroft-Gault) 88.6 BUN/Creatinine Ratio 19 (6-20) Glucose Level 208 mg/dL (70-99) Calcium Level 8.7 mg/dL (8.5-10.1) Total Bilirubin 0.2 mg/dL (0.2-1.0) Aspartate Amino Transf (AST/SGOT) 82 U/L (15-37) Alanine Aminotransferase (ALT/SGPT) 50 U/L (14-59) Alkaline Phosphatase 88 U/L (46-116) Total Protein 6.6 g/dL (6.4-8.2) Albumin 2.8 g/dL (3.4-5.0) Albumin/Globulin Ratio 0.7 (1.0-1.7) Vitamin B12 Level 373 pg/mL (247-911) Medications Current Medications Acetaminophen/ Hydrocodone Bitart (Lortab 5/325) 1 tab PRN Q6HRS PRN PO MODERATE PAIN 4-6; Start 02/27/22 at 22:15 Ketorolac Tromethamine (Toradol) 10 mg PRN Q6HRS PRN PO HEADACHE; Start 02/27/22 at 22:15; Stop 03/04/22 at 22:14 Levothyroxine Sodium (Synthroid) 25 mcg DAILY06 PO Last administered on 02/28/22at 08:48; Start 02/28/22 at 06:00 Pramipexole Dihydrochloride (miraPEX) 0.25 mg QHS PO Last administered on 02/28/22 20:51; Start 02/27/22 at 23:00 Sumatriptan Succinate (Imitrex) 100 mg PRN 1X PRN PO MIGRAINE HEADACHE; Start 02/27/22 at 22:15 Venlafaxine HCl (Effexor) 225 mg DAILY PO Last administered on 02/28/22 08:51; Start 02/28/22 at 09:00 Amitriptyline HCl (Elavil) 50 mg QHS PO ; Start 02/27/22 at 23:00 Bupropion HCl (Wellbutrin Sr) 150 mg BID PO Last administered on 02/28/22 20:51; Start 02/27/22 at 23:00 Celecoxib (CeleBREX) 200 mg BID PO Last administered on 02/28/22 20:53; Start 02/27/22 at 23:00 Ergocalciferol (Vitamin D2) 50,000 unit WEEKLY PO ; Start 03/06/22 at 09:00 Diazepam (Valium) 10 mg PRN TID PRN PO ANXIETY / AGITATION; Start 02/27/22 at 22:45 Budesonide (Pulmicort) 0.5 mg RTBID NEB Last administered on 02/28/22 20:13; Start 02/28/22 at 08:00 Losartan Potassium (Cozaar) 100 mg DAILY PO Last administered on 02/28/22 08:51; Start 02/28/22 at 09:00 Metformin HCl (Glucophage) 1,000 mg BIDWMEALS PO Last administered on 02/28/22 16:54; Start 02/28/22 at 08:00 Metoprolol Tartrate (Lopressor) 50 mg BID PO Last administered on 02/28/22 08 :48; Start 02/27/22 at 23:00 Pantoprazole Sodium (Protonix) 40 mg DAILYAC PO Last administered on 02/28/22 07:30; Start 02/28/22 at 07:30 Pregabalin (Lyrica) 150 mg BID PO Last administered on 02/28/22 20:51; Start 02/27/22 at 23:00 Prochlorperazine Maleate (Compazine) 10 mg PRN Q6HRS PRN PO NAUSEA/VOMITING; Start 02/27/22 at 22:45 Non-Formulary Medication (Semaglutide (Ozempic)) 1 mg WEEKLY SQ ; Start 03/06/22 at 09:00; Status UNV Zolpidem Tartrate (Ambien) 5 mg PRN QHS PRN PO INSOMNIA, MAY REPEAT X1 Last administered on 02/28/22at 00:59; Start 02/27/22 at 22:45 Morphine Sulfate (Morphine Sulfate) 4 mg PRN Q4HRS PRN IV SEVERE PAIN 7-10 Last administered on 03/01/22at 02:53; Start 02/27/22 at 22:30 Ketorolac Tromethamine (Toradol 30mg Vial) 30 mg PRN Q6HRS PRN IVP INFLAMMATION Last administered on 02/28/22 19:52; Start 02/27/22 at 22:30; Stop 03/04/22 at 22:29 Diphenhydramine HCl (Benadryl) 25 mg PRN Q6HRS PRN IVP ITCHING Last administered on 02/28/22at 00:58; Start 02/27/22 at 22:30; Stop 02/28/22 at 04:25; Status DC Sodium Chloride 1,000 ml @ 100 mls/hr Q10H IV Last administered on 03/01/22 02:42; Start 02/27/22 at 22:30 Albuterol/ Ipratropium (Duoneb) 3 ml RTQID NEB Last administered on 02/28/22at 20:13; Start 02/28/22 at 08:00 Diphenhydramine HCl (Benadryl) 25 mg PRN Q4HRS PRN IVP ITCHING Last administered on 03/01/22at 02:50; Start 02/28/22 at 04:30 Barium Sulfate (Liquid E-Z Paque) 710 ml 1X ONCE PO ; Start 03/01/22 at 07:15; Stop 03/01/22 at 07:16 Active Scripts Active Reported Lyrica (Pregabalin) 150 Mg Capsule 1 Cap PO BID Celebrex (Celecoxib) 200 Mg Capsule 200 Mg PO BID 30 Days D3-50 (Cholecalciferol (Vitamin D3)) 50,000 Unit Capsule 1 Cap PO WEEKLY 28 Days Ozempic (Semaglutide) 1 Mg/0.75 Ml Pen.injctr 1 Mg SQ WEEKLY Bystolic (Nebivolol) 10 Mg Tablet 10 Mg PO DAILY Compazine (Prochlorperazine Maleate) 10 Mg Tablet 1 Tab PO Q6HRS 30 Days Ketorolac Tromethamine 10 Mg Tablet 30 Mg PO PRN Q6HRS PRN Imitrex (Sumatriptan Succinate) 100 Mg Tablet 1 Tab PO UD Hydrocodone-Apap 5-325 (Hydrocodone Bit/Acetaminophen) 1 Tab Tablet 1 Tab PO PRN Q6HRS PRN Diazepam 10 Mg Tablet 10 Mg PO PRN TID PRN Ambien (Zolpidem Tartrate) 10 Mg Tablet 10 Mg PO HS PRN Venlafaxine Hcl 75 Mg Tablet 3 Tab PO DAILY Bupropion Hcl Sr (Bupropion Hcl) 150 Mg Tablet.er 150 Mg PO BID Trelegy Ellipta 100-62.5-25 (Fluticasone/Umeclidin/Vilanter) 1 Each Blst.w.dev 1 Puff PO DAILY Mirapex (Pramipexole Di-Hcl) 0.25 Mg Tablet 1 Tab PO QHS Irbesartan 300 Mg Tablet 150 Mg PO DAILY Levothyroxine Sodium 25 Mcg Tablet 1 Tab PO DAILY Amitriptyline Hcl 50 Mg Tablet 1 Tab PO QHS Omeprazole 40 Mg Capsule.dr 1 Cap PO DAILY Metformin Hcl 1,000 Mg Tablet 1,000 Mg PO BID Vitals/I & O Vital Sign - Last 24 Hours 02/28/22 02/28/22 02/28/22 02/28/22 07:57 08:00 08:48 08:51 Pulse 67 61 B/P (MAP) 122/56 126/56 Pulse Ox 98 O2 Delivery Room Air Room Air 02/28/22 02/28/22 02/28/22 02/28/22 09:15 11:00 12:33 13:30 Pulse 69 Resp 20 18 20 B/P (MAP) 115/54 (74) Pulse Ox 98 96 96 O2 Delivery Room Air Room Air Room Air Room Air 02/28/22 02/28/22 02/28/22 02/28/22 15:00 16:19 16:55 17:29 Pulse 75 Resp 18 20 20 B/P (MAP) 101/47 (65) Pulse Ox 96 96 O2 Delivery Room Air Room Air Room Air 02/28/22 02/28/22 02/28/22 02/28/22 19:15 19:55 20:15 20:51 Temp 97.4 97.4 Pulse 70 63 Resp 18 B/P (MAP) 113/50 (71) 93/45 Pulse Ox 93 95 O2 Delivery Room Air Room Air Room Air 02/28/22 02/28/22 02/28/22 03/01/22 21:02 21:32 23:03 02:53 Temp 98.0 98.0 Pulse 68 Resp 18 18 20 B/P (MAP) 93/42 (59) Pulse Ox 95 91 91 O2 Delivery Room Air Room Air Room Air Room Air 03/01/22 03/01/22 03:03 03:23 Temp 97.6 97.6 Pulse 66 Resp 18 B/P (MAP) 95/53 (67) Pulse Ox 91 O2 Delivery Room Air Room Air Intake and Output 02/28/22 02/28/22 03/01/22 15:00 23:00 07:00 Intake Total 240 ml 320 ml 240 ml Balance 240 ml 320 ml 240 ml Assessment Anemia- with borderline B12 level, await celiac panel and SB series, will start B12 injections pending CBC today, o/p capsule endoscopy if above unhelpful/unrevealing Justicifation of Admission Dx: Justifications for Admission: Justification of Admission Dx: Yes LENORE MI MD March 01, 2022 07:11
[2022-03-01 07:14] LABS: BASO # 0.1 x10^3/uL (0.0-0.2); BASO % 1 % (0-3); EOS # 0.2 x10^3/uL (0.0-0.7); EOS % 2 % (0-3); HEMATOCRIT 32.2 % (36.0-47.0); HEMOGLOBIN 10.1 g/dL (12.0-15.5); LYMPH % 21 % (24-48); MEAN CORPUSCULAR HEMOGLOBIN 25 pg (25-35); MEAN CORPUSCULAR HGB CONC 31 g/dL (31-37); MEAN CORPUSCULAR VOLUME 80 fL (79-100); MONO # 0.6 x10^3/uL (0.0-1.1); MONO % 7 % (0-9); NEUT # 6.5 x10^3/uL (1.8-7.7); NEUT % 69 % (31-73); PLATELET COUNT 304 x10^3/uL (140-400); RED BLOOD COUNT 4.03 x10^6/uL (3.50-5.40); RED CELL DISTRIBUTION WIDTH 17.7 % (11.5-14.5); WHITE BLOOD COUNT 9.5 x10^3/uL (4.0-11.0)
[2022-03-01 07:15] VITALS: BP 93/42
[2022-03-01] MEDS ORDERED: BARIUM SULFATE 60% 355 ML SUSP PO ONE (07:15)
[2022-03-01] MEDS: IPRATRPIUM/ALBUTEROL 0.5/2.5MG 3 ML NEBU. NEB SCH ×4 (07:49→20:00)
[2022-03-01] MEDS: BUDESONIDE 0.5 MG/2 ML NEBU. NEB SCH ×2 (07:49→20:00)
[2022-03-01] MEDS: metFORMIN 500 MG TABLET PO SCH ×2 (08:00→17:37)
[2022-03-01] MEDS: CELECOXIB 100 MG CAPSULE. PO SCH ×2 (09:00→21:39)
[2022-03-01] MEDS: PREGABALIN 75 MG CAPSULE PO SCH ×2 (09:00→21:39)
[2022-03-01] MEDS: buPROPion SR 150 MG TABLET.SA PO SCH ×2 (09:00→21:38)
[2022-03-01] MEDS: LOSARTAN POTASSIUM 50 MG TABLET. PO SCH (09:00)
[2022-03-01] MEDS: METOPROLOL TART IMMED RELEASE 50 MG TABLET. PO SCH ×2 (09:00→21:39)
--- NOTE | 2022-03-01 09:23 | PN ---
DATE: 03/01/2022 LOCATION: She is in room 422. SUBJECTIVE: This 51-year-old female remains hospitalized with intractable migraine headache with failed outpatient treatment. She is finally getting a little bit of sleep and the headache is maybe minimally dulled, but still not to the point of considering discharge today. GI is following for anemia. OBJECTIVE: VITAL SIGNS: Stable. She is afebrile. GENERAL: She is awake and alert. CHEST: Clear. HEART: Regular. ABDOMEN: Benign. NEUROLOGIC: Nonfocal. ASSESSMENT: 1. Intractable migraine headache, on her usual cocktail. 2. Anemia. PLAN: Per GI. Cortisol level drawn this morning. Anticipate discharge this weekend. GILDARDO DR: Amber TID: [id number]
[2022-03-01] MEDS ORDERED: CYANOCOBALAMIN (VITAMIN B-12) 1,000 MCG/ML VIAL. IM ONE ×2 (10:00→18:00)
[2022-03-01 15:07] VITALS: BP 123/51
[2022-03-01] MEDS: PANTOPRAZOLE 40 MG TABLET.DR. PO SCH (15:23)
[2022-03-01] MEDS: VENLAFAXINE 75 MG TABLET. PO SCH (15:23)
[2022-03-01] MEDS: LEVOTHYROXINE 25 MCG TABLET. PO SCH (15:25)
[2022-03-01] MEDS: KETOROLAC 30 MG/ML VIAL. IVP PRN ×2 (15:27→21:38)
--- NOTE | 2022-03-01 15:27 | RAD ---
EXAM: DG SMALL BOWEL FOLLOW THROUGH 03/01/2022 8:38 AM CLINICAL INDICATION: Anemia COMPARISON: None TECHNIQUE: A blood bank technician image was obtained. The patient drank barium contrast and additional abdominal ra diograph obtained at various time intervals for a total of 5 hours and 15 minutes. FINDINGS: The small bowel is normal in caliber and morphology. Small bowel folds are normal in appea rosalba. No small bowel obstruction. There is delayed small bowel transit time of 5 hours and 15 minute s. IMPRESSION: 1. Delayed small bowel transit time of 5 hours and 50 minutes. 2. Otherwise normal appearance of the small bowel. Electronically signed by: Ashley Garcia MD (03/01/2022 3:25 PM) [id number]
[2022-03-01 19:15] VITALS: BP 125/60
[2022-03-01] MEDS: diazePAM 5 MG TABLET PO PRN (19:52)
[2022-03-01] MEDS: HYDROcodone/APAP 5/325MG 1 TAB TABLET PO PRN (19:53)
[2022-03-01] MEDS: PRAMIPEXOLE 0.25 MG TABLET. PO SCH (21:38)
[2022-03-01] MEDS: ZOLPIDEM 5 MG TABLET. PO PRN (21:39)
[2022-03-01] MEDS: AMITRIPTYLINE HCL 25 MG TABLET. PO SCH (21:39)
[2022-03-01 23:11] VITALS: BP 109/48
[2022-03-02] MEDS: IV NORMAL SALINE 1000ML BAG 1,000 ML IV SCH ×3 (00:30→19:30)
[2022-03-02 03:04] VITALS: BP 111/52
[2022-03-02] MEDS: LEVOTHYROXINE 25 MCG TABLET. PO SCH (06:14)
[2022-03-02] MEDS: diphenhydrAMINE 50 MG/ML VIAL IVP PRN ×3 (06:14→16:34)
[2022-03-02] MEDS: MORPHINE SULFATE 4 MG/ML INJ. IV PRN (06:15)
[2022-03-02 06:24] VITALS: BP 98/59
[2022-03-02] MEDS: BUDESONIDE 0.5 MG/2 ML NEBU. NEB SCH ×2 (07:38→20:09)
[2022-03-02] MEDS: IPRATRPIUM/ALBUTEROL 0.5/2.5MG 3 ML NEBU. NEB SCH ×4 (07:38→20:09)
[2022-03-02] MEDS: CELECOXIB 100 MG CAPSULE. PO SCH ×2 (08:37→21:31)
[2022-03-02] MEDS: PANTOPRAZOLE 40 MG TABLET.DR. PO SCH (08:37)
[2022-03-02] MEDS: buPROPion SR 150 MG TABLET.SA PO SCH ×2 (08:37→21:30)
[2022-03-02] MEDS: METOPROLOL TART IMMED RELEASE 50 MG TABLET. PO SCH ×2 (08:38→21:30)
[2022-03-02] MEDS: metFORMIN 500 MG TABLET PO SCH ×2 (08:39→16:33)
[2022-03-02] MEDS: PREGABALIN 75 MG CAPSULE PO SCH ×2 (08:39→21:30)
[2022-03-02] MEDS: VENLAFAXINE 75 MG TABLET. PO SCH (08:39)
[2022-03-02] MEDS: LOSARTAN POTASSIUM 50 MG TABLET. PO SCH (08:41)
[2022-03-02] MEDS: diazePAM 5 MG TABLET PO PRN (08:46)
[2022-03-02] MEDS: fentaNYL PF VIAL 100 MCG/2 ML VIAL IVP PRN ×3 (10:42→22:24)
[2022-03-02 11:00] VITALS: BP 115/64
[2022-03-02 15:00] VITALS: BP 140/67
[2022-03-02] MEDS: HYDROcodone/APAP 5/325MG 1 TAB TABLET PO PRN (16:33)
[2022-03-02 19:00] VITALS: BP 151/77
[2022-03-02] MEDS: PRAMIPEXOLE 0.25 MG TABLET. PO SCH (21:30)
[2022-03-02] MEDS: DOCUSATE SODIUM 100 MG CAPSULE. PO SCH (21:30)
[2022-03-02] MEDS: AMITRIPTYLINE HCL 25 MG TABLET. PO SCH (21:31)
[2022-03-02 23:05] VITALS: BP 135/70
--- NOTE | 2022-03-03 02:03 | PN ---
DATE: 03/02/2022 DAILY PROGRESS NOTE LOCATION: She is in room 422. SUBJECTIVE: This 51-year-old female remains hospitalized with intractable migraine headache with failed outpatient treatment. She continues to be quite miserable with very little sleep and I am going to change around the morphine to fentanyl to see if this would make any difference. Small bowel series yesterday was negative, although there was delayed small bowel transit likely due to pain meds and sugar. OBJECTIVE: VITAL SIGNS: Stable. She is afebrile. GENERAL: She is awake, alert, continues to appear miserable. CHEST: Clear. HEART: Regular. ABDOMEN: Benign. ASSESSMENT: 1. Intractable migraine headache with a change in cocktail. 2. Anemia. PLAN: As above. EMILY/BRADY/CELENA DR: EMILY/gil TID: [id number]
[2022-03-03 03:00] VITALS: BP 111/59
[2022-03-03] MEDS: IV NORMAL SALINE 1000ML BAG 1,000 ML IV SCH ×2 (04:54→14:29)
[2022-03-03] MEDS: PANTOPRAZOLE 40 MG TABLET.DR. PO SCH (05:51)
[2022-03-03] MEDS: LEVOTHYROXINE 25 MCG TABLET. PO SCH (05:51)
[2022-03-03 06:31] VITALS: BP 117/78
[2022-03-03] MEDS: BUDESONIDE 0.5 MG/2 ML NEBU. NEB SCH ×2 (07:28→20:15)
[2022-03-03] MEDS: IPRATRPIUM/ALBUTEROL 0.5/2.5MG 3 ML NEBU. NEB SCH ×4 (07:28→20:15)
[2022-03-03] MEDS: METOPROLOL TART IMMED RELEASE 50 MG TABLET. PO SCH ×2 (10:18→22:16)
[2022-03-03] MEDS: DOCUSATE SODIUM 100 MG CAPSULE. PO SCH ×2 (10:18→22:15)
[2022-03-03] MEDS: VENLAFAXINE 75 MG TABLET. PO SCH (10:18)
[2022-03-03] MEDS: buPROPion SR 150 MG TABLET.SA PO SCH ×2 (10:18→22:15)
[2022-03-03] MEDS: CELECOXIB 100 MG CAPSULE. PO SCH ×2 (10:18→22:16)
[2022-03-03] MEDS: metFORMIN 500 MG TABLET PO SCH ×2 (10:19→16:50)
[2022-03-03] MEDS: LOSARTAN POTASSIUM 50 MG TABLET. PO SCH (10:19)
[2022-03-03] MEDS: PREGABALIN 75 MG CAPSULE PO SCH ×2 (10:19→22:15)
[2022-03-03] MEDS: fentaNYL PF VIAL 100 MCG/2 ML VIAL IVP PRN ×3 (10:31→18:55)
[2022-03-03 11:00] VITALS: BP 146/77
[2022-03-03] MEDS: HYDROcodone/APAP 5/325MG 1 TAB TABLET PO PRN (14:24)
[2022-03-03 15:00] VITALS: BP 139/70
[2022-03-03] MEDS: diphenhydrAMINE 50 MG/ML VIAL IVP PRN (15:51)
--- NOTE | 2022-03-03 16:56 | PN ---
DATE: 03/03/2022 DAILY PROGRESS NOTE LOCATION: She is in room 422. SUBJECTIVE: This 51-year-old female remains hospitalized with intractable migraine headache with failed outpatient treatment. She had a little better day yesterday with a change from morphine to fentanyl, but still feels like she is on the edge and if not ready to go home and she would be right back to where she started. OBJECTIVE: VITAL SIGNS: Stable. She is afebrile. GENERAL: She is awake, alert, continues to look miserable. CHEST: Clear to auscultation. HEART: Regular rate and rhythm. ABDOMEN: Benign. ASSESSMENT: 1. Intractable migraine headache with slight improvement. 2. Anemia. PLAN: Continue present care. Hopefully, will be ready for discharge as soon as tomorrow. EMILY/SOLEDAD DR: Amber TID: [id number]
[2022-03-03] MEDS ORDERED: CYANOCOBALAMIN (VITAMIN B-12) 1,000 MCG/ML VIAL. IM ONE (17:15)
[2022-03-03 19:00] VITALS: BP 162/80
[2022-03-03] MEDS: AMITRIPTYLINE HCL 25 MG TABLET. PO SCH (22:15)
[2022-03-03] MEDS: PRAMIPEXOLE 0.25 MG TABLET. PO SCH (22:15)
[2022-03-03 22:49] VITALS: BP 180/82
[2022-03-04] MEDS: IV NORMAL SALINE 1000ML BAG 1,000 ML IV SCH (00:18)
[2022-03-04 03:14] VITALS: BP 147/62
[2022-03-04] MEDS: LEVOTHYROXINE 25 MCG TABLET. PO SCH (06:15)
[2022-03-04] MEDS: fentaNYL PF VIAL 100 MCG/2 ML VIAL IVP PRN (06:16)
[2022-03-04] MEDS: PANTOPRAZOLE 40 MG TABLET.DR. PO SCH ×2 (06:16→08:32)
[2022-03-04 07:00] VITALS: BP 163/80
[2022-03-04] MEDS: IPRATRPIUM/ALBUTEROL 0.5/2.5MG 3 ML NEBU. NEB SCH ×2 (07:40→07:43)
[2022-03-04] MEDS: BUDESONIDE 0.5 MG/2 ML NEBU. NEB SCH ×2 (07:41→07:43)
--- NOTE | 2022-03-04 08:27 | CONS ---
DATE OF CONSULTATION: 03/04/2022 PRIMARY DIAGNOSIS: Intractable migraine headache with failed outpatient treatment. ADDITIONAL DIAGNOSES: Increased intracranial pressure, diabetes. CHIEF COMPLAINT AND HISTORY OF PRESENT ILLNESS: This 51-year-old female admitted for intractable migraine headache. She had been trying for a week or so at home to break it with her home meds and was unable to do so, unable to function, go to work, do her normal daily routine and was admitted for her usual migraine cocktail. SUMMARY OF STAY: The patient was admitted, slow to improve, was probably 75% improved by the day of discharge, which she felt she could go home and take care of things from there. Her exam was essentially normal during the stay with some mild expressive aphasia, which she has chronically since CVA from migrainous spasm in the past. Sugars remain decent throughout the stay. DISPOSITION: The patient is discharged to home. She was discharged on an ADA diet. Activity as tolerated. Office as scheduled. DISCHARGE MEDICATIONS: Listed on the med rec and have been addressed. MARK ANTHONY DR: Amber TID: [id number]
[2022-03-04] MEDS: PREGABALIN 75 MG CAPSULE PO SCH (08:32)
[2022-03-04] MEDS: buPROPion SR 150 MG TABLET.SA PO SCH (08:32)
[2022-03-04] MEDS: CELECOXIB 100 MG CAPSULE. PO SCH (08:32)
[2022-03-04] MEDS: METOPROLOL TART IMMED RELEASE 50 MG TABLET. PO SCH (08:32)
[2022-03-04] MEDS: metFORMIN 500 MG TABLET PO SCH (08:32)
[2022-03-04] MEDS: LOSARTAN POTASSIUM 50 MG TABLET. PO SCH (08:33)
[2022-03-04] MEDS: VENLAFAXINE 75 MG TABLET. PO SCH (08:33)
[2022-03-04] MEDS: DOCUSATE SODIUM 100 MG CAPSULE. PO SCH (08:33)
--- NOTE | 2022-03-04 09:12 | NUR ---
Patient discharged in stable condition with . all lines removed. discharge instructions given and all questions answered. patient walked out by OBIEE REPORT DEVELOPER.
--- NOTE | 2022-03-04 09:23 | PDOC ---
Date of Service: DATE: 03/04/22 TIME: 09:19 Subjective: Subjective: I saw this morning prior to discharge. No GI complaints. Interested in [facility] as outpt. Objective: Objective: Retic and Cortisol ok. Low-normal B12 (373) s/p B12 inj. Celiac panel pending. Vital Signs: Vital Signs Date Time Temp Pulse Resp B/P (MAP) Pulse Ox O2 Delivery O2 Flow Rate FiO2 03/04/22 08:33 75 163/80 03/04/22 08:00 Room Air 03/04/22 07:43 99 03/04/22 07:00 98.8 18 98.8 Labs: Laboratory Tests Test 03/03/22 12:01 03/03/22 16:50 Glucose (Fingerstick) 136 mg/dL 158 mg/dL Imaging: [facility]BS 03/01/22 IMPRESSION: 1. Delayed small bowel transit time of 5 hours and 50 minutes. 2. Otherwise normal appearance of the small bowel. PE: GEN: NAD - in chair taking pills, nurse present, pt dressed to leave LUNGS: room air ABD: obese NEURO/PSYCH: A & O 3 A/P: EZEKIEL Headaches -- DC per primary. Continue iron, B12, and PPI. F/u for celiac panel results and for outpt [facility]. Justicifation of Admission Dx: Justifications for Admission: Justification of Admission Dx: Yes GALINDO DANIELS March 04, 2022 09:23
[2022-03-04 11:00] VITALS: BP 134/81
[2022-03-04 15:15] LABS: GLIA IGA 5 units (0-19); GLIA IGG 2 units (0-19); TRANSGLUTAMINASE IGA AB <2 U/mL (0-3); TRANSGLUTAMINASE IGG AB <2 U/mL (0-5)
[2022-03-06] MEDS ORDERED: ERGOCALCIFEROL (VITAMIN D2) 50,000 UNIT CAPSULE. PO SCH (09:00)
[2022-03-06] MEDS ORDERED: NON FORMULARY ITEM (Semaglutide (Ozempic) 1 MG) SQ SCH (09:00)
== END 2022-03-04 18:35 | disposition home or self-care (01) | DRG 103 ==
LOC: 4 NORTH 17:27
PROVIDERS: ADMIT Family Medicine; ATTEND Family Medicine
DX: G43.919 Migraine, unspecified, intractable, without status migrainosus (principal); Z68.42 Body mass index [BMI] 45.0-49.9, adult; D50.9 Iron deficiency anemia, unspecified; E11.9 Type 2 diabetes mellitus without complications; E78.5 Hyperlipidemia, unspecified; I11.0 Hypertensive heart disease with heart failure; I50.9 Heart failure, unspecified; I69.320 Aphasia following cerebral infarction; Z81.8 Family history of other mental and behavioral disorders; Z82.49 Family history of ischemic heart disease and other diseases of the circulatory system; Z86.718 Personal history of other venous thrombosis and embolism; Z87.11 Personal history of peptic ulcer disease; F32.A Depression, unspecified; F41.9 Anxiety disorder, unspecified; K21.9 Gastro-esophageal reflux disease without esophagitis; G93.2 Benign intracranial hypertension; E66.9 Obesity, unspecified
CPT/HCPCS: 36415; 74250; 80053; 82533; 82607; 82962; 83516; 85025; 85045; 94640; 94760; J1200; J1885; J2270; J3010; J3420; J7030; G0378; J7626; Q0164